=== PATIENT | male | born 1955 | race Caucasian/White ===

== ENCOUNTER 2017-09-16 13:58 | Inpatient (IN) | payer MEDICARE, MEDICAID, SELFPAY ==
[2017-09-16] VITALS (11 sets, daily range): BP systolic 151–176; BP diastolic 80–128; PULSE 54–121; RESP 17–34; TEMP 35.5–36.8; O2SAT 95–99; BMI 18.5; BMI 17.1
--- NOTE | 2017-09-16 14:22 | EKG12_ITS ---
Test Reason : SOB Blood Pressure : / mmHG Vent. Rate : 098 BPM Atrial Rate : 098 BPM P-R Int : 132 ms QRS Dur : 070 ms QT Int : 334 ms P-R-T Axes : 080 081 073 degrees QTc Int : 426 ms Normal sinus rhythm Normal ECG Confirmed by TIANA MELGOZA, TANA ([id number]), editor greeting card NEVA BOYD ([id number]) on 09/19/2017 11:21:48 AM Referred By: Gianni Riley Confirmed By:TANA MONTIEL MD
[2017-09-16] MEDS: Ipratropium/Albuterol Sulfate 3 ML AMPUL.NEB INHALATION ×2 (14:34→22:24)
[2017-09-16] MEDS: MethylPREDNISolone 125 MG/2 ML Vial IV (14:56)
[2017-09-16] MEDS: 0.9% Normal Saline 1,000 ML 999 ML IV (14:56)
--- NOTE | 2017-09-16 15:10 | RAD_ITS ---
STUDY: X-RAY CHEST REASON FOR EXAM: Male, 62 years old. Cough. TECHNIQUE: PA and lateral views of the chest. COMPARISON: Comparison is made with prior study dated May 20, 2009. FINDINGS: EKG electrodes are seen. Hyperinflation. Decreased bronchovascular markings bilaterally suggestive of bilateral emphysematous changes. Stable linear scarring at the lung bases. Blunting of both cause phrenic angles. Normal size heart. Normal mediastinum and christie. Normal visualized pulmonary arteries. Normal visualized aortic arch and descending thoracic aorta. There is demineralization of the osseous structures. Multiple healed right rib fractures. There is no demonstrated abnormality of the visualized soft tissue structures of the upper abdomen. RAD/Chest PA and Lateral IMPRESSION: Hyperinflation and emphysematous changes with mild bibasilar scarring. Healed right rib fractures. Electronically Signed: Westley Malagon MD at 15:37 EST Tel [phone], Service support ,
[2017-09-16 15:50] LABS: Absolute Lymphocyte Count 1.51 X10^3/ul (0.83-4.51); Absolute Neutrophil Count 5.7 X10^3/uL (2.0-7.7); Basophil# 0.05 X10^3/uL; Basophil% 0.5 % (0-1); Eosinophil# 0.27 X10^3/uL; Hematocrit 42.1 % (40-54); Hemoglobin 14.1 g/dl (13.0-16.5); Lymphocyte # 1.51 X10^3/ul (4.0); Lymphocyte % 16.6 % (19-41); Mean Corp Hgb Conc 33.5 g/gl (32-36); Mean Corpuscular Hgb 30.9 pg (27.0-32.0); Mean Corpuscular Volume 92.1 fL (80-94); Mean Platelet Vol. 9.1 fl (6.2-12.0); Monocyte# 1.53 X10^3/uL; Monocyte% 16.8 % (0-10); Neutrophil # 5.72 X10^3/uL (2.7-7.7); Neutrophil % 62.8 % (47-70); Platelet Count 308 K/mm3 (150-450); RBC Distribution Width SD 50.5 fl (35.1-43.9); Red Blood Count 4.57 M/mm3 (4.6-6.2); White Blood Count 9.1 K/mm3 (4.4-11.0)
[2017-09-16 15:52] LABS: Differential Indicated SCAN CRITERIA MET; POSITIVE COUNT NO; POSITIVE DIFFERENTIAL YES; POSITIVE MORPHOLOGY NO
[2017-09-16 16:13] LABS: Anion Gap 8 (5-15); BUN 7 mg/dL (7-18); BUN/Creat Ratio 12.4 RATIO (10-20); Calcium,Total 8.8 mg/dL (8.5-10.1); Chloride 101 mmol/L (98-107); Creatinine, Serum 0.56 mg/dL (0.70-1.30); EST Glomerular Filtration Rate 157 mL/min (>60); Est Glom Filt Rate - Afr Amer 190 mL/min (>60); Estimated Creatinine Clearance 106.35 ml/min; Glucose 86 mg/dL (70-110); Potassium 3.9 mmol/L (3.5-5.1); Sodium Level 135 mmol/L (136-145)
[2017-09-16] MEDS: Acetaminophen 325 MG Tablet 650 MG PO (16:28)
[2017-09-16 16:33] LABS: Anisocytosis RARE; Macrocytosis RARE; Platelet Estimate ADEQUATE (ADEQ)
[2017-09-16] MEDS: Albuterol 2.5 MG/3 ML VIAL.NEB. INHALATION (16:36)
--- NOTE | 2017-09-16 16:45 | ED.VISSUMM ---
- ER Visit Summary Date of Service: 09/16/17 Chief Complaint: Cough History of Present Illness: The patient is a [address] Diaz. He has cough and shortness of breath began 2 days ago. He has a history of COPD. He is not on home O2. He does not see a dough puncher. Reports he has severe shortness of breath is much worse when he walks or lays flat. Patient reports his cough is nonproductive. He has had no fever, chills, or chest pain. Physical Examination: Vitals: Stable. Afebrile. General: Well-nourished and well-developed. Head: Normocephalic atraumatic. Neck: Supple, no lymphadenopathy. No JVD. Nontender. Cardiovascular: Regular rate and rhythm. No murmurs. Respiratory: Mild respiratory distress with minimal wheezing bilaterally, but greatly decreased air movement.. Abdominal: Soft, nontender, nondistended, normal bowel sounds. No guarding, rebound, or peritoneal signs. Back: Nontender. Extremities: Nontender, no edema. Skin: Normal color, no rash. Neurologic: Alert and oriented ?3. Cranial nerves II through XII are intact. Normal strength and sensation. Psych: Normal affect. Test Results: Chest x-ray shows chronic changes. EKG is sinus at 98 with no acute changes. CBC is marked for lymphocytes 17 monocytes 17. Chem-7 is more for sodium 135 and creatinine 0.56. Emergency Department Course and Treatment: Patient was given albuterol Atrovent aerosols. He was given Solu-Medrol IV and Tylenol p.o. Repeat exam he is still very dyspneic and tachypneic. Is given a second albuterol aerosol. Treatment Plan: Patient was discussed with Dr. Carter. He will be admitted to the hospital for further evaluation and treatment. Disposition: Admitted in improved condition. Impression: 1. COPD exacerbation. This note was generated with [employer] dictation software. It may contain incorrect words, spelling, and punctuation that were not noted in review of the chart prior to signing ED Disposition - Plan for ED Patient: Chief Complaint: Shortness of Breath Referrals: Arpit Diaz MD [Primary Care Provider] -
--- NOTE | 2017-09-16 17:40 | PCM.HP.STD ---
Problem List (1) COPD (chronic obstructive pulmonary disease) with emphysema Status: Chronic (2) Acute respiratory failure with hypoxia Status: Acute (3) Ischemic stroke Status: Chronic Comment: Recent about 2-3 weeks ago (4) Hypertension Status: Chronic (5) Dyslipidemia Status: Chronic (6) Throat cancer Status: Chronic (7) Peripheral arterial disease Status: Chronic (8) Right inguinal hernia Status: Chronic (9) COPD (chronic obstructive pulmonary disease) with acute bronchitis Status: Acute History of Present Illness Date of Admission: 09/16/17 Chief Complaint: Shortness of breath since last 3 days The patient is a 62 year old M with history of COPD/emphysema, not on home oxygen and other comorbidities as mentioned above came to ER with progressive worsening of shortness of breath since Saturday night. He also has chest congestion but denies fever or chills. He has shortness of breath on exertion but denies chest pain/tightness. Besides that he has recently had a stroke and is seeing Dr. Riley. He was supposed to have MRI brain and 2D echo today. As per the he has residual receptive aphasia, understanding the speech. He also has chronic malnutrition but has gained about 10 pounds in last 6 months. Clinical Impression(s) from Imaging Studies Chest X-Ray 09/16/17 15:10 IMPRESSION: Hyperinflation and emphysematous changes with mild bibasilar scarring. Healed right rib fractures. Electronically Signed: Westley Malagon MD at 15:37 EST Tel [phone], Service support , Laboratory Results 09/16/17 15:40: WBC 9.1, RBC 4.57 L, Hgb 14.1, Hct 42.1, MCV 92.1, MCH 30.9, MCHC 33.5, RDW 15.0 H, RDW Differential 50.5 H, Plt Count 308, MPV 9.1, Immature Gran % (Auto) 0.300, Neut % (Auto) 62.8, Lymph % (Auto) 16.6 L, Berks % (Auto) 16.8 H, Eos % (Auto) 3.0, Baso % (Auto) 0.5, Absolute Neuts (auto) 5.7, Absolute Lymphs (auto) 1.51, Total Counted Not Reportable, Differential Comment SEE COMMENT, Diff Path Review May foll, Platelet Estimate ADEQUATE, Anisocytosis RARE, Macrocytosis RARE 09/16/17 15:40: Sodium 135 L, Potassium 3.9, Chloride 101, Carbon Dioxide 26.0, Anion Gap 8, BUN 7, Creatinine 0.56 L, Estim Creat Clear Calc 106.35, Est GFR (MDRD) Af Amer 190, Est GFR (MDRD) Non-Af 157, BUN/Creatinine Ratio 12.4, Glucose 86, Calcium 8.8 [] Past Medical History Past Medical History (Chronic Problems): Chronic Problems COPD (chronic obstructive pulmonary disease) with emphysema (Chronic) Ischemic stroke (Chronic) Recent about 2-3 weeks ago Hypertension (Chronic) Dyslipidemia (Chronic) Throat cancer (Chronic) Peripheral arterial disease (Chronic) Right inguinal hernia (Chronic) Allergies No Known Allergies Allergy (Verified 09/26/15 18:58) Home Medications: Ambulatory Orders Medication Instructions Recorded Albuterol IH (ProAir) [Proair Hfa 2 puff INHALATION Q4H PRN PRN 09/26/15 (SP)Vent Pts] Amlodipine [Norvasc] 10 mg PO DAILY 09/26/15 Atorvastatin Calcium [Lipitor] 40 mg PO QHS 09/26/15 Fluticasone Propionate [Flonase 1 spray NS DAILY 09/26/15 Allergy Relief] Lorazepam [Ativan] 0.5 mg PO TID PRN PRN 09/26/15 Aspirin [Aspirin, Baby] 81 mg PO DAILY@0800 09/16/17 Budesonide/Formoterol 160/4.5 2 puff INHALATION BID 09/16/17 [Symbicort 160/4.5 Mcg Inhaler (SP)] Smoking Status: Current every day smoker - About a pack a day since teenage. Alcohol: Heavy - About 3 beers daily since teenager - *Family History Paternal History Items: No pertinent history Review of Systems Constitutional: Reports: Malaise, Weakness. Denies: Chills, Fever, Weight Change HEENT: Denies: Head Aches, Sinus Congestion, Sinus Drainage Cardiovascular: Denies: Chest Pain, Palpitations Respiratory: Reports: Cough, Shortness of Breath, Shortness of breath upon exertion. Denies: Shortness of breath at rest, Sputum production Gastrointestinal: Denies: Abdominal Pain, Nausea, Vomiting Genitourinary: Denies: Dysuria Musculoskeletal: Denies: Joint Pain, Joint Tenderness Skin: Denies: Rash, Wounds Neurological: Denies: Numbness, Tingling, Focal weakness Psychiatric: Denies: Anxiety, Depression, Homicidal Ideations, Suicidal Ideations Hematologic/ Lymphatic: Denies: Easy Bruising, Easy Bleeding VTE Information - Inpt Only VTE Present on Admission: No VTE Mechan Device Prophylaxis: SCD's VTE Pharm Prophylaxis ordered?: Yes Patient Problems: Active and Suspected Problems Acute respiratory failure with hypoxia (Acute) COPD (chronic obstructive pulmonary disease) with acute bronchitis (Acute) - Physical Exam General: Alert, Oriented x3, Cooperative HEENT: Atraumatic, PERRLA, EOMI, Normocephalic Oral: Dry Mucosa Neck: Supple, No JVD, Negative Carotid Bruits Lungs: Diminished, Rhonchi, Short of Breath, Tachypneic, Using Accessory Muscles, Wheezes Cardiovascular: Regular rate, Regular Rhythm, Normal S1, Normal S2, No murmurs, - - Surgical scar melissa over right leg anteromedially and anterolaterally probably vascular surgery. Right SFA stent. A small formed to hard, single swelling present over anterior part of right upper thigh. Abdomen: Bowel Sounds Present, Soft, Non Tender, Non-Distended, Hernia - Right inguinal hernia, direct., - Extremities: No edema, Capillary Refill Less than 3 Seconds Skin: No rashes, No breakdown Musculoskeletal: No Tenderness to Palpation of Joints or Extremities Neurological: Cranial nerves II-XII grossly intact Psych/Mental Status: Normal Affect, Appropriate Vital Signs Temp Pulse Resp BP Pulse Ox 97 F L 97 26 H 155/88 H 97 09/16/17 16:55 09/16/17 16:55 09/16/17 16:55 09/16/17 16:55 09/16/17 16:55 Oxygen Flow Rate 2 Oxygen Delivery Method Nasal Cannula Weight: 118 lb 2.684 oz Body Mass Index (BMI) 18.5 Laboratory Tests Past 24 Hrs 09/16/17 09/16/17 15:40 15:40 WBC 9.1 RBC 4.57 L Hgb 14.1 Hct 42.1 MCV 92.1 MCH 30.9 MCHC 33.5 RDW 15.0 H RDW Differential 50.5 H Plt Count 308 MPV 9.1 Immature Gran % (Auto) 0.300 Neut % (Auto) 62.8 Lymph % (Auto) 16.6 L Berks % (Auto) 16.8 H Eos % (Auto) 3.0 Baso % (Auto) 0.5 Absolute Neuts (auto) 5.7 Absolute Lymphs (auto) 1.51 Total Counted Not Reportable Differential Comment SEE COMMENT Diff Path Review May foll Platelet Estimate ADEQUATE Anisocytosis RARE Macrocytosis RARE Sodium 135 L Potassium 3.9 Chloride 101 Carbon Dioxide 26.0 Anion Gap 8 BUN 7 Creatinine 0.56 L Estim Creat Clear Calc 106.35 Est GFR (MDRD) Af Amer 190 Est GFR (MDRD) Non-Af 157 BUN/Creatinine Ratio 12.4 Glucose 86 Calcium 8.8 Assessment/Plan Active and Suspected Problems Acute respiratory failure with hypoxia (Acute) COPD (chronic obstructive pulmonary disease) with acute bronchitis (Acute) The patient is a 62 year old M with history of COPD/emphysema, not on home oxygen and other comorbidities as mentioned above came to ER with progressive worsening of shortness of breath since Saturday night. He also has chest congestion but denies fever or chills. He has shortness of breath on exertion but denies chest pain/tightness. Besides that he has recently had a stroke and is seeing Dr. Riley. He was supposed to have MRI brain and 2D echo today. As per the he has residual receptive aphasia, understanding the speech. He also has chronic malnutrition but has gained about 10 pounds in last 6 months. 1. COPD exacerbation with acute hypoxic respiratory failure. Currently patient is on 2 L of oxygen, pulse ox 98%. Patient is being admitted on the monitored bed. ABG ordered. On COPD protocol with bronchodilator, Solu-Medrol, IV Zithromax, chest physiotherapy, influenza test, sputum culture. 2. Recent stroke with residual receptive/fornix aphasia with history of recurrent stroke in the past: As mentioned above, MRI brain and 2D echo ordered. Patient follows Dr. Riley. Continue aspirin and statin. 3. Significant peripheral arterial disease status post right SFA stent and right leg surgery: Patient follows [facility] vascular surgery. Patient also has firm nodule, spherical in shape in vandana-superior right thigh. Patient has follow-up scheduled for [facility] vascular surgery. 4. Chronic alcohol use and nicotine dependence: Counseling for smoking cessation and alcohol cessation done. On nicotine patch. CIWA protocol. She drinks 3 bottles of beer every day since teenage. 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 Other comorbidities include hypertension, right inguinal direct hernia, dyslipidemia, chronic moderate protein calorie malnutrition: On ensure. Grinder Hardboard consult. Home medication reconciliation done. DVT prophylaxis: On Lovenox 40 mg subcu daily and bilateral SCDs. anscription mistakes may persist. Clinical Impression(s) from Imaging Studies Chest X-Ray 09/16/17 15:10 IMPRESSION: Hyperinflation and emphysematous changes with mild bibasilar scarring. Healed right rib fractures. Electronically Signed: Westley Malagon MD at 15:37 EST Tel [phone], Service support , Laboratory Results 09/16/17 15:40: WBC 9.1, RBC 4.57 L, Hgb 14.1, Hct 42.1, MCV 92.1, MCH 30.9, MCHC 33.5, RDW 15.0 H, RDW Differential 50.5 H, Plt Count 308, MPV 9.1, Immature Gran % (Auto) 0.300, Neut % (Auto) 62.8, Lymph % (Auto) 16.6 L, Berks % (Auto) 16.8 H, Eos % (Auto) 3.0, Baso % (Auto) 0.5, Absolute Neuts (auto) 5.7, Absolute Lymphs (auto) 1.51, Total Counted Not Reportable, Differential Comment SEE COMMENT, Diff Path Review May foll, Platelet Estimate ADEQUATE, Anisocytosis RARE, Macrocytosis RARE 09/16/17 15:40: Sodium 135 L, Potassium 3.9, Chloride 101, Carbon Dioxide 26.0, Anion Gap 8, BUN 7, Creatinine 0.56 L, Estim Creat Clear Calc 106.35, Est GFR (MDRD) Af Amer 190, Est GFR (MDRD) Non-Af 157, BUN/Creatinine Ratio 12.4, Glucose 86, Calcium 8.8 This note was generated with Powered Nowation software. Every effort was made to ensure accuracy, however computerized tr Code Visit Inpatient E&M: 95901 Init Hosp L3
--- NOTE | 2017-09-16 17:53 | HP.PCM_ITS ---
Problem List (1) COPD (chronic obstructive pulmonary disease) with emphysema Status: Chronic (2) Acute respiratory failure with hypoxia Status: Acute (3) Ischemic stroke Status: Chronic Comment: Recent about 2-3 weeks ago (4) Hypertension Status: Chronic (5) Dyslipidemia Status: Chronic (6) Throat cancer Status: Chronic (7) Peripheral arterial disease Status: Chronic (8) Right inguinal hernia Status: Chronic (9) COPD (chronic obstructive pulmonary disease) with acute bronchitis Status: Acute History of Present Illness Date of Admission: 09/16/17 Chief Complaint: Shortness of breath since last 3 days The patient is a 62 year old M with history of COPD/emphysema, not on home oxygen and other comorbidities as mentioned above came to ER with progressive worsening of shortness of breath since Saturday night. He also has chest congestion but denies fever or chills. He has shortness of breath on exertion but denies chest pain/tightness. Besides that he has recently had a stroke and is seeing Dr. Riley. He was supposed to have MRI brain and 2D echo today. As per the he has residual receptive aphasia, understanding the speech. He also has chronic malnutrition but has gained about 10 pounds in last 6 months. Clinical Impression(s) from Imaging Studies Chest X-Ray 09/16/17 15:10 IMPRESSION: Hyperinflation and emphysematous changes with mild bibasilar scarring. Healed right rib fractures. Electronically Signed: Westley Malagon MD at 15:37 EST Tel [phone], Service support , Laboratory Results 09/16/17 15:40: WBC 9.1, RBC 4.57 L, Hgb 14.1, Hct 42.1, MCV 92.1, MCH 30.9, MCHC 33.5, RDW 15.0 H, RDW Differential 50.5 H, Plt Count 308, MPV 9.1, Immature Gran % (Auto) 0.300, Neut % (Auto) 62.8, Lymph % (Auto) 16.6 L, Bennett % (Auto) 16.8 H, Eos % (Auto) 3.0, Baso % (Auto) 0.5, Absolute Neuts (auto) 5.7, Absolute Lymphs (auto) 1.51, Total Counted Not Reportable, Differential Comment SEE COMMENT, Diff Path Review May foll, Platelet Estimate ADEQUATE, Anisocytosis RARE, Macrocytosis RARE 09/16/17 15:40: Sodium 135 L, Potassium 3.9, Chloride 101, Carbon Dioxide 26.0, Anion Gap 8, BUN 7, Creatinine 0.56 L, Estim Creat Clear Calc 106.35, Est GFR ( MDRD) Af Amer 190, Est GFR (MDRD) Non-Af 157, BUN/Creatinine Ratio 12.4, Glucose 86, Calcium 8.8 [] Past Medical History Past Medical History (Chronic Problems): Chronic Problems COPD (chronic obstructive pulmonary disease) with emphysema (Chronic) Ischemic stroke (Chronic) Recent about 2-3 weeks ago Hypertension (Chronic) Dyslipidemia (Chronic) Throat cancer (Chronic) Peripheral arterial disease (Chronic) Right inguinal hernia (Chronic) Allergies No Known Allergies Allergy (Verified 09/26/15 18:58) Home Medications: Ambulatory Orders Medication Instructions Recorded Albuterol IH (ProAir) [Proair Hfa 2 puff INHALATION Q4H PRN PRN 09/26/15 (SP)Vent Pts] Amlodipine [Norvasc] 10 mg PO DAILY 09/26/15 Atorvastatin Calcium [Lipitor] 40 mg PO QHS 09/26/15 Fluticasone Propionate [Flonase 1 spray NS DAILY 09/26/15 Allergy Relief] Lorazepam [Ativan] 0.5 mg PO TID PRN PRN 09/26/15 Aspirin [Aspirin, Baby] 81 mg PO DAILY@0800 09/16/17 Budesonide/Formoterol 160/4.5 2 puff INHALATION BID 09/16/17 [Symbicort 160/4.5 Mcg Inhaler (SP)] Smoking Status: Current every day smoker - About a pack a day since teenage. Alcohol: Heavy - About 3 beers daily since teenager - *Family History Paternal History Items: No pertinent history Review of Systems Constitutional: Reports: Malaise, Weakness. Denies: Chills, Fever, Weight Change HEENT: Denies: Head Aches, Sinus Congestion, Sinus Drainage Cardiovascular: Denies: Chest Pain, Palpitations Respiratory: Reports: Cough, Shortness of Breath, Shortness of breath upon exertion. Denies: Shortness of breath at rest, Sputum production Gastrointestinal: Denies: Abdominal Pain, Nausea, Vomiting Genitourinary: Denies: Dysuria Musculoskeletal: Denies: Joint Pain, Joint Tenderness Skin: Denies: Rash, Wounds Neurological: Denies: Numbness, Tingling, Focal weakness Psychiatric: Denies: Anxiety, Depression, Homicidal Ideations, Suicidal Ideations Hematologic/ Lymphatic: Denies: Easy Bruising, Easy Bleeding VTE Information - Inpt Only VTE Present on Admission: No VTE Mechan Device Prophylaxis: SCD's VTE Pharm Prophylaxis ordered?: Yes Patient Problems: Active and Suspected Problems Acute respiratory failure with hypoxia (Acute) COPD (chronic obstructive pulmonary disease) with acute bronchitis (Acute) - Physical Exam General: Alert, Oriented x3, Cooperative HEENT: Atraumatic, PERRLA, EOMI, Normocephalic Oral: Dry Mucosa Neck: Supple, No JVD, Negative Carotid Bruits Lungs: Diminished, Rhonchi, Short of Breath, Tachypneic, Using Accessory Muscles , Wheezes Cardiovascular: Regular rate, Regular Rhythm, Normal S1, Normal S2, No murmurs, - - Surgical scar melissa over right leg anteromedially and anterolaterally probably vascular surgery. Right SFA stent. A small formed to hard, single swelling present over anterior part of right upper thigh. Abdomen: Bowel Sounds Present, Soft, Non Tender, Non-Distended, Hernia - Right inguinal hernia, direct., - Extremities: No edema, Capillary Refill Less than 3 Seconds Skin: No rashes, No breakdown Musculoskeletal: No Tenderness to Palpation of Joints or Extremities Neurological: Cranial nerves II-XII grossly intact Psych/Mental Status: Normal Affect, Appropriate Vital Signs Temp Pulse Resp BP Pulse Ox 97 F L 97 26 H 155/88 H 97 09/16/17 16:55 09/16/17 16:55 09/16/17 16:55 09/16/17 16:55 09/16/17 16:55 Oxygen Flow Rate 2 Oxygen Delivery Method Nasal Cannula Weight: 118 lb 2.684 oz Body Mass Index (BMI) 18.5 Laboratory Tests Past 24 Hrs 09/16/17 09/16/17 15:40 15:40 WBC 9.1 RBC 4.57 L Hgb 14.1 Hct 42.1 MCV 92.1 MCH 30.9 MCHC 33.5 RDW 15.0 H RDW Differential 50.5 H Plt Count 308 MPV 9.1 Immature Gran % (Auto) 0.300 Neut % (Auto) 62.8 Lymph % (Auto) 16.6 L Bennett % (Auto) 16.8 H Eos % (Auto) 3.0 Baso % (Auto) 0.5 Absolute Neuts (auto) 5.7 Absolute Lymphs (auto) 1.51 Total Counted Not Reportable Differential Comment SEE COMMENT Diff Path Review May foll Platelet Estimate ADEQUATE Anisocytosis RARE Macrocytosis RARE Sodium 135 L Potassium 3.9 Chloride 101 Carbon Dioxide 26.0 Anion Gap 8 BUN 7 Creatinine 0.56 L Estim Creat Clear Calc 106.35 Est GFR (MDRD) Af Amer 190 Est GFR (MDRD) Non-Af 157 BUN/Creatinine Ratio 12.4 Glucose 86 Calcium 8.8 Assessment/Plan Active and Suspected Problems Acute respiratory failure with hypoxia (Acute) COPD (chronic obstructive pulmonary disease) with acute bronchitis (Acute) The patient is a 62 year old M with history of COPD/emphysema, not on home oxygen and other comorbidities as mentioned above came to ER with progressive worsening of shortness of breath since Saturday night. He also has chest congestion but denies fever or chills. He has shortness of breath on exertion but denies chest pain/tightness. Besides that he has recently had a stroke and is seeing Dr. Riley. He was supposed to have MRI brain and 2D echo today. As per the he has residual receptive aphasia, understanding the speech. He also has chronic malnutrition but has gained about 10 pounds in last 6 months. 1. COPD exacerbation with acute hypoxic respiratory failure. Currently patient is on 2 L of oxygen, pulse ox 98%. Patient is being admitted on the monitored bed. ABG ordered. On COPD protocol with bronchodilator, Solu-Medrol , IV Zithromax, chest physiotherapy, influenza test, sputum culture. 2. Recent stroke with residual receptive/fornix aphasia with history of recurrent stroke in the past: As mentioned above, MRI brain and 2D echo ordered. Patient follows Dr. Riley. Continue aspirin and statin. 3. Significant peripheral arterial disease status post right SFA stent and right leg surgery: Patient follows [facility] vascular surgery. Patient also has firm nodule, spherical in shape in vandana-superior right thigh. Patient has follow-up scheduled for [facility] vascular surgery. 4. Chronic alcohol use and nicotine dependence: Counseling for smoking cessation and alcohol cessation done. On nicotine patch. CIWA protocol. She drinks 3 bottles of beer every day since teenage. 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 Other comorbidities include hypertension, right inguinal direct hernia, dyslipidemia, chronic moderate protein calorie malnutrition: On ensure. Taxonomist consult. Home medication reconciliation done. DVT prophylaxis: On Lovenox 40 mg subcu daily and bilateral SCDs. anscription mistakes may persist. Clinical Impression(s) from Imaging Studies Chest X-Ray 09/16/17 15:10 IMPRESSION: Hyperinflation and emphysematous changes with mild bibasilar scarring. Healed right rib fractures. Electronically Signed: Westley Malagon MD at 15:37 EST Tel [phone], Service support , Laboratory Results 09/16/17 15:40: WBC 9.1, RBC 4.57 L, Hgb 14.1, Hct 42.1, MCV 92.1, MCH 30.9, MCHC 33.5, RDW 15.0 H, RDW Differential 50.5 H, Plt Count 308, MPV 9.1, Immature Gran % (Auto) 0.300, Neut % (Auto) 62.8, Lymph % (Auto) 16.6 L, Bennett % (Auto) 16.8 H, Eos % (Auto) 3.0, Baso % (Auto) 0.5, Absolute Neuts (auto) 5.7, Absolute Lymphs (auto) 1.51, Total Counted Not Reportable, Differential Comment SEE COMMENT, Diff Path Review May foll, Platelet Estimate ADEQUATE, Anisocytosis RARE, Macrocytosis RARE 09/16/17 15:40: Sodium 135 L, Potassium 3.9, Chloride 101, Carbon Dioxide 26.0, Anion Gap 8, BUN 7, Creatinine 0.56 L, Estim Creat Clear Calc 106.35, Est GFR ( MDRD) Af Amer 190, Est GFR (MDRD) Non-Af 157, BUN/Creatinine Ratio 12.4, Glucose 86, Calcium 8.8 This note was generated with Tissuetechation software. Every effort was made to ensure accuracy, however computerized tr Code Visit Inpatient E&M: 78342 Init Hosp L3
[2017-09-16 19:16] LABS: Allen Test POS; Base Excess -2 mmol/L (-2 to +2); Bicarbonate 22.6 mmol/L (22-26); Blood Gas Specimen Type ART; O2 Delivery Device Nasal Can; PO2 99 mmHG (75-100); SITE L Radial; SO2 98 % (95-99); Time Given 1905; Total Carbon Dioxide 24 mmol/L; pCO2 36.6 mmHg (35-45)
[2017-09-16 19:59] LABS: GGTP 20 U/L (15-85)
[2017-09-16] MEDS: 0.9% Normal Saline 1,000 ML 75 ML IV (20:04)
[2017-09-16 20:11] LABS: Alcohol, Blood (Medical)-Serum < 3.0 mg/dL
[2017-09-16 21:01] LABS: BNP,B-Type NATRIURETIC PEPTIDE 10.8 pg/mL (0-100)
[2017-09-16] MEDS: Atorvastatin Calcium 40 MG Tablet PO (22:15)
[2017-09-17] VITALS (7 sets, daily range): BP systolic 123–159; BP diastolic 68–83; PULSE 77–106; RESP 16–20; TEMP 36.4–36.8; O2SAT 94–98
--- NOTE | 2017-09-17 05:55 | MRI_ITS ---
STUDY: MRI BRAIN WITHOUT CONTRAST REASON FOR EXAM: Male, 62 years old. The patient presents with a history of being off-balance with leg weakness and numbness in the legs. The patient has a history of hypertension, COPD and throat cancer. Evaluate for recent CVA. TECHNIQUE: Standardized multiplanar fat and water weighted pulse sequences were obtained. COMPARISON: None. FINDINGS: There is mild cerebral atrophy with widening of the extra-axial spaces and ventricular dilatation. There is extensive confluent hyperintensity of the deep white matter tracts extending from the cerebral hemispheres to the cortical mcnally-white matter junctions. If the patient is experiencing rapid mental deterioration, the findings would be compatible with subcortical arteriosclerotic encephalopathy ( Binswanger's disease). There are remote periventricular small white matter lacunar infarctions. There is no evidence for recent intracranial ischemia or other cause of cytotoxic edema on diffusion weighted imaging (DWI). Normal T2* images of the brain without demonstrated susceptibility artifact. There is no demonstrated hemosiderin stain. There are prominent perivascular spaces (PVS) involving the basal ganglia. There are multiple remote lacunar infarctions of the bilateral thalami (axial T2 series 5, image 14). There is no extra-axial fluid accumulation. Normal flow voids within the major intracranial circulation suggesting patency by spin echo criteria. Normal sella turcica, pituitary gland, infundibular stalk, optic chiasm and hypothalamus. Normal tectal plate and pineal gland. There are chronic white matter ischemic changes of the daly. The midbrain and medulla are otherwise normal. There are small remote lacunar infarctions of the daly. Normal cerebellum. Normal basal cisterns. Normal bilateral temporal bones. Normal bilateral internal auditory canals. No demonstrated orbital abnormality, within the constraints of a routine brain study. There is extensive mucosal inflammatory disease of the bilateral maxillary sinuses (axial T2 series 5, image 6). Normal calvarium and skull base. Normal visualized soft tissue structures. Normal visualized upper cervical spine. MRI/Brain without Contrast IMPRESSION: 1. No acute or evolving ischemic infarction. 2. Extensive confluent hyperintense signal of the deep white matter tracts consistent with severe chronic white matter ischemic changes. 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 3. Remote small periventricular lacunar infarctions. 4. Multiple remote lacunar infarctions of the bilateral thalami. 5. Chronic white matter ischemic changes of the daly with small remote lacunar infarctions. 6. Extensive chronic sinusitis the bilateral maxillary sinuses. Electronically Signed: Gilberto Donovan DO at 12:22 EST Tel , Service support ,
--- NOTE | 2017-09-17 05:55 | ECHOD_ITS ---
Reason For Study: CVA Procedure This was a 2D Doppler, Color Flow transthoracic echocardiogram. The exam was of fair technical quality due to diminished acoustic windows. The study was technically difficult. Exam performed portable in patient room. Left Ventricle Normal size and thickness. Left ventricular systolic function is normal. The estimated ejection fraction is 65 %. Transmitral doppler flow suggestive of impaired relaxation of left ventricle. No regional wall motion abnormalities noted. Right Ventricle Normal RV size. Normal systolic function. Atria Normal left atrium. Normal right atrium. No doppler evidence for ASD. Bubble contrast study negative for right to left interatrial shunt. Mitral Valve There is no mitral annular calcification. Mild diffuse mitral valve thickening. The mitral valve chordae are thickened and/or calcified. Trivial mitral valve insufficiency. Tricuspid Valve Normal tricuspid valve. Trivial tricuspid valve insufficiency. Right ventricular systolic pressure estimated to be 22 mmHg. Aortic Valve Trisinus/trileaflet aortic valve. Mild focal aortic valve calcification. Pulmonic Valve The pulmonic valve is not well visualized. Great Vessels Normal sized aortic root. Pericardium/Pleural No pericardial effusion. Medication Performed a rapid injection of agitated mix of 9 cc saline and 1cc air to assess for atrial septal defect. MMode/2D Measurements & Calculations LVIDd: 3.3 cm IVSd: 0.96 cm Ao root diam: 2.9 cm LVIDs: 1.9 cm LVPWd: 0.91 cm LA dimension: 3.2 cm RVDd: 2.3 cm FS: 40.3 % LAV(MOD-bp): 31.8 ml LA A4 area: 13.0 cm2 RA A4 area: 12.3 cm2 LAV(MOD-bp) Indexed: 20.4 ml/m2 LAV(MOD-sp2): 31.3 ml LAV(MOD-sp4): 31.0 ml Doppler Measurements & Calculations MV E max isi: 77.8 cm/sec Ao V2 max: 96.1 cm/sec LV V1 max: 78.3 cm/sec MV A max isi: 106.9 cm/sec Ao max P.7 mmHg LV V1 max P.5 mmHg MV E/A: 0.73 PA V2 max: 112.5 cm/sec TR max isi: 216.1 cm/sec TR max P.8 mmHg Interpretation Summary The study was technically difficult. Left ventricular systolic function is normal. The estimated ejection fraction is 65 %. Mild diffuse mitral valve thickening. The mitral valve chordae are thickened and/or calcified. Trivial mitral valve insufficiency. Trivial tricuspid valve insufficiency. Mild focal aortic valve calcification. Right ventricular systolic pressure estimated to be 22 mmHg. Transmitral doppler flow suggestive of impaired relaxation of left ventricle Ordering Physician: Ambrosio Carter Referring Physician: ABIMAEL GRANADOS Performed By: Hilda Yuan, JABIER, RVT
[2017-09-17 06:53] LABS: Absolute Lymphocyte Count 0.64 X10^3/ul (0.83-4.51); Absolute Neutrophil Count 7.6 X10^3/uL (2.0-7.7); Basophil# 0.02 X10^3/uL; Basophil% 0.2 % (0-1); Hematocrit 40.2 % (40-54); Hemoglobin 13.4 g/dl (13.0-16.5); Lymphocyte # 0.64 X10^3/ul (4.0); Lymphocyte % 7.6 % (19-41); Mean Corp Hgb Conc 33.3 g/gl (32-36); Mean Corpuscular Hgb 30.6 pg (27.0-32.0); Mean Corpuscular Volume 91.8 fL (80-94); Monocyte# 0.22 X10^3/uL; Monocyte% 2.6 % (0-10); Neutrophil # 7.56 X10^3/uL (2.7-7.7); Neutrophil % 89.2 % (47-70); Platelet Count 333 K/mm3 (150-450); RBC Distribution Width SD 50.8 fl (35.1-43.9); Red Blood Count 4.38 M/mm3 (4.6-6.2); White Blood Count 8.5 K/mm3 (4.4-11.0)
[2017-09-17 06:55] LABS: AST(SGOT) 16 U/L (15-37); Alanine Aminotransfer ALT/SGPT 18 U/L (16-61); Albumin, Serum 3.1 g/dL (3.2-5.0); Alkaline Phosphatase 76 U/L (45-117); Bilirubin, Direct 0.06 mg/dL (0.00-0.30); Globulin 4.5 g/dL (2.2-4.2); Protein, Total 7.6 g/dL (6.4-8.2)
[2017-09-17 06:56] LABS: POSITIVE COUNT NO; POSITIVE DIFFERENTIAL NO; POSITIVE MORPHOLOGY NO
[2017-09-17] MEDS: Ipratropium/Albuterol Sulfate 3 ML AMPUL.NEB INHALATION ×3 (08:08→19:40)
--- NOTE | 2017-09-17 08:43 | PCM.PN.HOSP ---
Patient Problems: Active and Suspected Problems Acute respiratory failure with hypoxia (Acute) COPD (chronic obstructive pulmonary disease) with acute bronchitis (Acute) Subjective: Patient with no acute events overnight per self and per nursing report. He notes since initial presentation breathing is improved and wheezing has lessened. Had lengthy discussion regarding recent acute stroke with ongoing workup outpatient per neurology with decision for MRI brain, MRA head and neck, echo as well as mag, phosphorus, TSH and lipid panel with therapies evaluation to which patient and significant were amenable. Cost alcohol abuse at length with initiation of [place] protocol during admission as well as maintenance of multivitamin, thiamine, folic acid with mag and phosphate pending as well. Patient denies any worsening of his mild aphasia. Patient denies fevers, chills, nausea, emesis, abdominal pain, chest pain or worsened dyspnea. Objective: Physical Examination: General: awake, alert, oriented x 3 and cooperative, seated upright in bed in no apparent distress, initially eating. Skin: normal color, turgor, no icterus, cyanosis. HEENT: AT/NC, EOMI, PERRLA, mildly dry MM. Lungs: Diminished BS diffusely, > bases, mild effort, shallow, no rales, ronchi or wheezing. Heart: Regular rate and rhythm; no gallop, rub audible. Abdomen: soft, thin habitus, NTTP, ND, normal BS, no HSM. Extremities: no cyanosis, clubbing, or edema. Neurological: patient awake, alert, oriented x 3; cognitive function intact; pupils equally reactive to light and accomodation; cranial nerves II-XII grossly normal, moving all 4 extremities, no focal deficits, strength mildly to moderately globally decreased, equiv babinski BL, FTN/HTN intact, aphasia present, very mild, sensation intact. Psychiatric: affect appears mildly irritable, no acute evidence of depressive or anxiety feelings. Vitals/I&O's: Vital Signs Temp Pulse Resp BP Pulse Ox 98.2 F 79 16 143/77 H 98 09/17/17 02:00 09/17/17 02:00 09/17/17 02:00 09/17/17 02:00 09/17/17 02:00 Oxygen Flow Rate 2 Oxygen Delivery Method Room Air Weight: 109 lb 2.061 oz Body Mass Index (BMI) 17.1 Intake and Output for Last 24 Hours 09/15/17 09/16/1709/17/18 23:59 23:59 23:59 Intake Total 1130 / 1130 Output Total 200 / 200 Balance 930 / 930 Microbiology Past 72 Hours 09/16/17 19:00 Mucosa - Nasopharyngeal Influenza Types A,B Direct FA (JAYDE) - Final Laboratory Results 09/16/17 19:13: Specimen Type ART, Sample Site L Radial, pH 7.40, Bicarbonate Actual 22.6, POC Total CO2 24, Base Excess -2, O2 Saturation 98, ABG pCO2 36.6, ABG pO2 99, Umer Test POS, O2 Delivery Device Nasal Can, Liter Flow 2.0, Blood Gas Notified Whom GERTRUDIS MELGOZA, Blood Gas Notified Time 19009/16/17 19:27: GGT 20 09/16/17 19:27: Ethyl Alcohol < 3.0 09/16/17 19:27: B-Natriuretic Peptide 10.8 09/17/17 06:12: WBC 8.5, RBC 4.38 L, Hgb 13.4, Hct 40.2, MCV 91.8, MCH 30.6, MCHC 33.3, RDW 15.0 H, RDW Differential 50.8 H, Plt Count 333, MPV 9.0, Immature Gran % (Auto) 0.400, Neut % (Auto) 89.2 H, Lymph % (Auto) 7.6 L, [place] % (Auto) 2.6, Eos % (Auto) 0.0, Baso % (Auto) 0.2, Absolute Neuts (auto) 7.6, Absolute Lymphs (auto) 0.64 L, Total Counted Not Reportable 09/17/17 06:12: Total Bilirubin 0.20, Direct Bilirubin 0.06, AST 16, ALT 18, Alkaline Phosphatase 76, Total Protein 7.6, Albumin 3.1 L, Globulin 4.5 H Current Medications Acetaminophen (Tylenol) 650 mg PO Q6H PRN PRN PRN Reason: Mild Pain (scale 0-3)/T>100.7 Al Hydroxide/Mg Hydroxide (Mylanta Ii) 30 ml PO Q6H PRN PRN PRN Reason: Gastric Burning Albuterol Sulfate (Ventolin Aerosols) 2.5 mg INHALATION Q2H PRN PRN PRN Reason: SHORTNESS OF BREATH Albuterol/Ipratropium (Duoneb) 3 ml INHALATION Q4HWA.RT [facility] Last Admin: 09/17/17 08:08 Dose: 3 ml Amlodipine Besylate (Norvasc) 10 mg PO DAILY [facility] Aspirin (Aspirin, Baby) 81 mg PO DAILY@0800 [facility] Atorvastatin Calcium (Lipitor) 40 mg PO QHS [facility] Last Admin: 09/16/17 22:15 Dose: 40 mg Bisacodyl (Dulcolax) 10 mg RECTAL DAILY PRN PRN PRN Reason: Constipation Docusate Sodium (Colace) 200 mg PO BID PRN PRN PRN Reason: Constipation Enoxaparin Sodium (Lovenox) 40 mg SC DAILY@0600 [facility] Last Admin: 09/17/17 05:36 Dose: Not Given Fluticasone Propionate (Flonase Nasal [place]) 1 spray NASAL DAILY [facility] Folic Acid (Folic Acid) 1 mg PO DAILY@0800 [facility] Stop: 09/19/17 08:01 Azithromycin 500 mg/ Dextrose 255 mls @ 250 mls/hr IV Q24 [facility] Stop: 09/18/17 11:02 Last Admin: 09/16/17 20:04 Dose: 250 mls/hr Lorazepam (Ativan) 0.5 mg PO TID PRN PRN PRN Reason: ANXIETY Lorazepam (Ativan) 2 mg PO Q2H PRN PRN; Protocol PRN Reason: CIWA score > 8 but <15 Lorazepam (Ativan) 2 mg PO UD PRN; Protocol PRN Reason: CIWA score >/=15. Lorazepam (Ativan) 2 mg IV Q2H PRN PRN; Protocol PRN Reason: CIWA score > 8 but <15 Lorazepam (Ativan) 2 mg IV UD PRN; Protocol PRN Reason: CIWA score >/=15. Methylprednisolone (Solu-Medrol) 40 mg IV Q8 [facility] Last Admin: 09/17/17 05:34 Dose: 40 mg Morphine Sulfate (Morphine) 1 - 2 mg IV Q4H PRN PRN PRN Reason: SEVERE PAIN (6-10/10) Multivitamins/Minerals ([facility]ivitamin With Minerals) [facility] Nicotine (Nicoderm Cq (Pbkc)) 21 mg TRANSDERM. DAILY [facility] Nutritional Formula (Lactose Free) (Ensure Enlive) 120 ml PO TID [facility] Last Admin: 09/17/17 05:34 Dose: 120 ml Ondansetron HCl (Zofran) 4 mg IV Q8H PRN PRN PRN Reason: Nausea Oxycodone HCl (Oxyir) 5 mg PO Q4H PRN PRN PRN Reason: Moderate Pain (pain scale 4-5) Sodium Chloride () 5 - 30 ml IV UD PRN PRN Reason: SALINE FLUSH Thiamine HCl (Vitamin B1) 100 mg PO BIDCM [facility] Stop: 09/19/17 17:01 Zolpidem Tartrate (Ambien (Generic)) 5 mg PO QHS PRN PRN PRN Reason: INSOMNIA Assessment/Plan Active and Suspected Problems Acute respiratory failure with hypoxia (Acute) COPD (chronic obstructive pulmonary disease) with acute bronchitis (Acute) The patient is a 62 y/o M w/ PMHx: CVA, COPD, HTN, HLD, Throat CA, PAD, EtOH Abuse who presents to the [facility] ED On 09/16/17 with history of ongoing, progressively worsening dyspnea, congestion x 3 days. (1) Acute Hypoxic Respiratory Failure secondary to Acute on chronic COPD exacerbation: CXR w/ chronic changes, admitted to [place], maintain on oxygen with wean as tolerated to room air, continue ATC duonebs, PRN albuterol, IV methylprednisolone with prednisone transition once appropriate, HOB, IS parameters, IV Azithromcyin with pending sputum cultures. Respiratory panel requested. (2) Recent Acute CVA: Following with Neurology outpatient, residual receptive aphasia. MRI Brain, MRA head and neck, ECHO ordered to complete evaluation, Mag, Phos, TSH, FLP pending. PT, OT, Speech consulted. (3) EtOH Abuse: Will maintain on CIWA protocol, MVI, thiamine and folic acid, will maintain on PRN IV ativan regimen to avoid EtOH associated withdrawal in addition. Mag, phos pending. (4) Tobacco Abuse: Encouraged cessation, inpatient consultation per RT, NR if desired. (5) PAD: s/p R SFA RLE w/ stenting, following w/ [facility], planned follow-up for noted anterior superior thigh spherical firm nodule. Maintain on asa, statin. (6) Hypertension: Continue home regimen including norvasc, PRN hydralazine. (7) Hyperlipidemia: Continue home statin regimen. AM FLP. (8) Throat CA: Remission noted, possible cervical node cancer s/p chemotherapy and radiation, poor historian. (9) Severe Protein-Calorie Malnutrition: Evidenced per habitus, weight loss, fat and muscle wasting, nutrition consulted. (10) DVT Prophylaxis: SCDs, lovenox. Code Visit Inpatient E&M: 84045 Subs Hosp L3
--- NOTE | 2017-09-17 08:51 | MRI_ITS ---
STUDY: MRA NECK WITHOUT CONTRAST REASON FOR EXAM: Male, 62 years old. The patient presents with a history of being off-balance with leg weakness and numbness of legs with a history of hypertension, COPD and throat cancer. TECHNIQUE: Source images were obtained, MIPs were performed. The study was performed unenhanced. COMPARISON: None. FINDINGS: There is significant patient motion artifact which has produced spatial mis-registration and anatomic blurring, however there is significant information provided by this examination. RIGHT CAROTID ARTERIES: There is atherosclerotic tortuous elongation of the right common carotid artery. Normal right common carotid bulb. There is a 73% stenosis of the right internal carotid artery, as measured by cross-sectional diameter assessment, occurring 11 mm distal to its origin. There is atherosclerotic tortuous elongation of the cervical portion of the right internal carotid artery. There is moderate atherosclerotic plaque formation of the origin of the right external carotid artery with an estimated stenosis of 50-69% stenosis. LEFT CAROTID ARTERIES: There is atherosclerotic tortuous elongation of the left common carotid artery. Normal left common carotid bulb. There is a high-grade stenosis of the origin of the left internal carotid artery of greater than 90%. There is a small threadlike lumen which cannot be accurately measured. There is atherosclerotic tortuous elongation of the cervical portion of the left internal carotid artery. Normal origin of the left external carotid artery (ECA). VERTEBRAL ARTERIES: There is antegrade flow within the bilateral vertebral arteries with a small left vertebral artery, and a dominant right vertebral artery. MRI/MRA Neck without Contrast IMPRESSION: 1. Significant patient motion artifact which has produced spatial mis-registration and anatomic blurring, however there is significant information provided by this examination. 2. Atherosclerotic tortuosity and elongation of the bilateral common carotid arteries. 3. 73% stenosis of the right internal carotid artery, as measured by cross-sectional diameter assessment. 4. Greater than 90% stenosis of the origin of the left internal carotid artery. Electronically Signed: Gilberto Donovan DO at 12:33 EST Tel , Service support ,
--- NOTE | 2017-09-17 08:51 | MRI_ITS ---
STUDY: MRA OF THE HEAD WITHOUT CONTRAST REASON FOR EXAM: Male, 62 years old. Weakness and numbness of the legs with a history of hypertension, COPD and throat cancer. TECHNIQUE: 3-D [id number] (TOF) imaging was performed with MIPs. The study was performed unenhanced. COMPARISON: None. FINDINGS: Normal bilateral petrous carotid arteries. There is ectatic elongation and tortuosity of the bilateral cavernous carotid arteries, without a demonstrated hemodynamically significant stenosis. Normal right A1 segments of the anterior cerebral artery. Normal left A1 segments of the anterior cerebral artery. Normal intact anterior communicating artery (ACOM). Normal bilateral A2 segments of the anterior cerebral arteries. Normal right M1 and M2 segments of the middle cerebral arteries, with a normal M1 bifurcation. Normal left M1 and M2 segments of the middle cerebral arteries, with a normal M1 bifurcation. Normal right posterior communicating artery (PCOM). There is non-visualization of the left posterior communicating artery (PCOM). There is a small atretic right vertebral artery with a dominant left vertebral artery. Normal basilar artery with a normal basilar bifurcation. The visualized bilateral superior cerebellar (SCA) arteries are normal. Normal bilateral P1, P2 and visualized P3 segments of the posterior cerebral arteries. There is no demonstrated aneurysm of the [place]. There is no major vessel occlusion or hemodynamically significant stenosis. MRI/MRA Head ONLY without Contrast IMPRESSION: 1. Ectatic elongation and tortuosity of the bilateral cavernous carotid arteries without a hemodynamically significant stenosis. 2. 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 3. Otherwise, normal examination. Electronically Signed: Gilberto Donovan DO at 12:13 EST Tel , Service support ,
--- NOTE | 2017-09-17 08:54 | PN_ITS ---
Patient Problems: Active and Suspected Problems Acute respiratory failure with hypoxia (Acute) COPD (chronic obstructive pulmonary disease) with acute bronchitis (Acute) Subjective: Patient with no acute events overnight per self and per nursing report. He notes since initial presentation breathing is improved and wheezing has lessened. Had lengthy discussion regarding recent acute stroke with ongoing workup outpatient per neurology with decision for MRI brain, MRA head and neck, echo as well as mag, phosphorus, TSH and lipid panel with therapies evaluation to which patient and significant were amenable. Cost alcohol abuse at length with initiation of [place] protocol during admission as well as maintenance of multivitamin, thiamine, folic acid with mag and phosphate pending as well. Patient denies any worsening of his mild aphasia. Patient denies fevers, chills , nausea, emesis, abdominal pain, chest pain or worsened dyspnea. Objective: Physical Examination: General: awake, alert, oriented x 3 and cooperative, seated upright in bed in no apparent distress, initially eating. Skin: normal color, turgor, no icterus, cyanosis. HEENT: AT/NC, EOMI, PERRLA, mildly dry MM. Lungs: Diminished BS diffusely, > bases, mild effort, shallow, no rales, ronchi or wheezing. Heart: Regular rate and rhythm; no gallop, rub audible. Abdomen: soft, thin habitus, NTTP, ND, normal BS, no HSM. Extremities: no cyanosis, clubbing, or edema. Neurological: patient awake, alert, oriented x 3; cognitive function intact; pupils equally reactive to light and accomodation; cranial nerves II-XII grossly normal, moving all 4 extremities, no focal deficits, strength mildly to moderately globally decreased, equiv babinski BL, FTN/HTN intact, aphasia present, very mild, sensation intact. Psychiatric: affect appears mildly irritable, no acute evidence of depressive or anxiety feelings. Vitals/I&O's: Vital Signs Temp Pulse Resp BP Pulse Ox 98.2 F 79 16 143/77 H 98 09/17/17 02:00 09/17/17 02:00 09/17/17 02:00 09/17/17 02:00 09/17/17 02:00 Oxygen Flow Rate 2 Oxygen Delivery Method Room Air Weight: 109 lb 2.061 oz Body Mass Index (BMI) 17.1 Intake and Output for Last 24 Hours 09/15/17 09/16/1709/17/18 23:59 23:59 23:59 Intake Total 1130 / 1130 Output Total 200 / 200 Balance 930 / 930 Microbiology Past 72 Hours 09/16/17 19:00 Mucosa - Nasopharyngeal Influenza Types A,B Direct FA (JAYDE) - Final Laboratory Results 09/16/17 19:13: Specimen Type ART, Sample Site L Radial, pH 7.40, Bicarbonate Actual 22.6, POC Total CO2 24, Base Excess -2, O2 Saturation 98, ABG pCO2 36.6, ABG pO2 99, Umer Test POS, O2 Delivery Device Nasal Can, Liter Flow 2.0, Blood Gas Notified Whom GERTRUDIS MELGOZA, Blood Gas Notified Time 19009/16/17 19:27: GGT 20 09/16/17 19:27: Ethyl Alcohol < 3.0 09/16/17 19:27: B-Natriuretic Peptide 10.8 09/17/17 06:12: WBC 8.5, RBC 4.38 L, Hgb 13.4, Hct 40.2, MCV 91.8, MCH 30.6, MCHC 33.3, RDW 15.0 H, RDW Differential 50.8 H, Plt Count 333, MPV 9.0, Immature Gran % (Auto) 0.400, Neut % (Auto) 89.2 H, Lymph % (Auto) 7.6 L, [place] % (Auto) 2.6, Eos % (Auto) 0.0, Baso % (Auto) 0.2, Absolute Neuts (auto) 7.6, Absolute Lymphs (auto) 0.64 L, Total Counted Not Reportable 09/17/17 06:12: Total Bilirubin 0.20, Direct Bilirubin 0.06, AST 16, ALT 18, Alkaline Phosphatase 76, Total Protein 7.6, Albumin 3.1 L, Globulin 4.5 H Current Medications Acetaminophen (Tylenol) 650 mg PO Q6H PRN PRN PRN Reason: Mild Pain (scale 0-3)/T>100.7 Al Hydroxide/Mg Hydroxide (Mylanta Ii) 30 ml PO Q6H PRN PRN PRN Reason: Gastric Burning Albuterol Sulfate (Ventolin Aerosols) 2.5 mg INHALATION Q2H PRN PRN PRN Reason: SHORTNESS OF BREATH Albuterol/Ipratropium (Duoneb) 3 ml INHALATION Q4HWA.RT [facility] Last Admin: 09/17/17 08:08 Dose: 3 ml Amlodipine Besylate (Norvasc) 10 mg PO DAILY [facility] Aspirin (Aspirin, Baby) 81 mg PO DAILY@0800 [facility] Atorvastatin Calcium (Lipitor) 40 mg PO QHS [facility] Last Admin: 09/16/17 22:15 Dose: 40 mg Bisacodyl (Dulcolax) 10 mg RECTAL DAILY PRN PRN PRN Reason: Constipation Docusate Sodium (Colace) 200 mg PO BID PRN PRN PRN Reason: Constipation Enoxaparin Sodium (Lovenox) 40 mg SC DAILY@0600 [facility] Last Admin: 09/17/17 05:36 Dose: Not Given Fluticasone Propionate (Flonase Nasal [place]) 1 spray NASAL DAILY [facility] Folic Acid (Folic Acid) 1 mg PO DAILY@0800 [facility] Stop: 09/19/17 08:01 Azithromycin 500 mg/ Dextrose 255 mls @ 250 mls/hr IV Q24 [facility] Stop: 09/18/17 11:02 Last Admin: 09/16/17 20:04 Dose: 250 mls/hr Lorazepam (Ativan) 0.5 mg PO TID PRN PRN PRN Reason: ANXIETY Lorazepam (Ativan) 2 mg PO Q2H PRN PRN; Protocol PRN Reason: CIWA score > 8 but <15 Lorazepam (Ativan) 2 mg PO UD PRN; Protocol PRN Reason: CIWA score >/=15. Lorazepam (Ativan) 2 mg IV Q2H PRN PRN; Protocol PRN Reason: CIWA score > 8 but <15 Lorazepam (Ativan) 2 mg IV UD PRN; Protocol PRN Reason: CIWA score >/=15. Methylprednisolone (Solu-Medrol) 40 mg IV Q8 [facility] Last Admin: 09/17/17 05:34 Dose: 40 mg Morphine Sulfate (Morphine) 1 - 2 mg IV Q4H PRN PRN PRN Reason: SEVERE PAIN (6-10/10) Multivitamins/Minerals (Multivitamin With Minerals) [facility] Nicotine (Nicoderm Cq (Pbkc)) 21 mg TRANSDERM. DAILY [facility] Nutritional Formula (Lactose Free) (Ensure Enlive) 120 ml PO TID [facility] Last Admin: 09/17/17 05:34 Dose: 120 ml Ondansetron HCl (Zofran) 4 mg IV Q8H PRN PRN PRN Reason: Nausea Oxycodone HCl (Oxyir) 5 mg PO Q4H PRN PRN PRN Reason: Moderate Pain (pain scale 4-5) Sodium Chloride () 5 - 30 ml IV UD PRN PRN Reason: SALINE FLUSH Thiamine HCl (Vitamin B1) 100 mg PO BIDCM [facility] Stop: 09/19/17 17:01 Zolpidem Tartrate (Ambien (Generic)) 5 mg PO QHS PRN PRN PRN Reason: INSOMNIA Assessment/Plan Active and Suspected Problems Acute respiratory failure with hypoxia (Acute) COPD (chronic obstructive pulmonary disease) with acute bronchitis (Acute) The patient is a 62 y/o M w/ PMHx: CVA, COPD, HTN, HLD, Throat CA, PAD, EtOH Abuse who presents to the [facility] ED On 09/16/17 with history of ongoing, progressively worsening dyspnea, congestion x 3 days. (1) Acute Hypoxic Respiratory Failure secondary to Acute on chronic COPD exacerbation: CXR w/ chronic changes, admitted to [place], maintain on oxygen with wean as tolerated to room air, continue ATC duonebs, PRN albuterol, IV methylprednisolone with prednisone transition once appropriate, HOB, IS parameters, IV Azithromcyin with pending sputum cultures. Respiratory panel requested. (2) Recent Acute CVA: Following with Neurology outpatient, residual receptive aphasia. MRI Brain, MRA head and neck, ECHO ordered to complete evaluation, Mag , Phos, TSH, FLP pending. PT, OT, Speech consulted. (3) EtOH Abuse: Will maintain on CIWA protocol, MVI, thiamine and folic acid, will maintain on PRN IV ativan regimen to avoid EtOH associated withdrawal in addition. Mag, phos pending. (4) Tobacco Abuse: Encouraged cessation, inpatient consultation per RT, NR if desired. (5) PAD: s/p R SFA RLE w/ stenting, following w/ [facility], planned follow-up for noted anterior superior thigh spherical firm nodule. Maintain on asa, statin. (6) Hypertension: Continue home regimen including norvasc, PRN hydralazine. (7) Hyperlipidemia: Continue home statin regimen. AM FLP. (8) Throat CA: Remission noted, possible cervical node cancer s/p chemotherapy and radiation, poor historian. (9) Severe Protein-Calorie Malnutrition: Evidenced per habitus, weight loss, fat and muscle wasting, nutrition consulted. (10) DVT Prophylaxis: SCDs, lovenox. Code Visit Inpatient E&M: 32474 Subs Hosp L3
[2017-09-17 09:28] LABS: Magnesium 2.1 mg/dL (1.6-2.6); Phosphorus 3.2 mg/dL (2.5-4.9); T4 Free Direct 0.98 ng/dL (0.76-1.46); Thyroid Stim Hormone (TSH) 1.58 uIU/mL (0.358-3.74)
[2017-09-17] MEDS: LORazepam 0.5 MG Tablet PO ×2 (09:40→16:07)
--- NOTE | 2017-09-17 09:53 | NURSING ---
Patient taken downstairs by radiology at this time.
[2017-09-17] MEDS: 0.9% NaCl Peripheral Flush Adult/Peds IV ×3 (11:00→20:19)
[2017-09-17] MEDS: Thiamine Hydrochloride 100 MG Tablet PO ×2 (11:03→16:07)
[2017-09-17] MEDS: Fluticasone 0.05% 1 SPRAY NASAL.SRY NASAL (11:03)
[2017-09-17] MEDS: Folic Acid 1 MG Tablet PO (11:03)
[2017-09-17] MEDS: amLODIPine 10 MG Tablet PO (11:03)
[2017-09-17] MEDS: Multivitamins,Ther W-Minerals Tablet 1 TABLET PO (11:07)
[2017-09-17] MEDS: Aspirin 81 MG TAB.CHEW PO (11:07)
[2017-09-17] MEDS: Acetaminophen 325 MG Tablet 650 MG PO ×2 (11:07→20:20)
--- NOTE | 2017-09-17 11:16 | NURSING ---
echo in progress in patient's room at this time.
--- NOTE | 2017-09-17 14:19 | CASEMGMT ---
See RN CM Assessment. DC PLAN: Home with significant other. -SW to evaluate for dc needs re: ETOH use.
[2017-09-17 16:37] LABS: Pathologist Review Reviewed
[2017-09-17] MEDS: Atorvastatin Calcium 40 MG Tablet PO (20:20)
[2017-09-18] VITALS (9 sets, daily range): BP systolic 132–156; BP diastolic 70–95; PULSE 84–121; RESP 16–20; TEMP 36–36.6; O2SAT 94–96
[2017-09-18] MEDS: Enoxaparin 40 MG/0.4 ML Syringe SC (05:19)
[2017-09-18] MEDS: 0.9% NaCl Peripheral Flush Adult/Peds IV ×3 (05:21→19:41)
--- NOTE | 2017-09-18 06:59 | PCM.PN.HOSP ---
Patient Problems: Active and Suspected Problems Acute respiratory failure with hypoxia (Acute) COPD (chronic obstructive pulmonary disease) with acute bronchitis (Acute) Subjective: Patient with no acute events overnight per self and per nursing report. Patient breathing status has improved markedly and he notes that he is breathing with greater ease with no marketed coughing fits. Discussed at length workup while inpatient for history of stroke which had been ongoing outpatient but was able to be completed in patient with notable findings with carotid disease with pending evaluation per surgery. Discussed with patient further plans with pending neurology evaluation as well. She is eager for discharge but did discuss possibility of intervention needs for carotid disease otherwise likely to have ongoing elevated stroke risk despite initiation of appropriate regimen. Patient denies fevers, chills, nausea, emesis, abdominal pain, chest pain or worsened dyspnea. Objective: Physical Examination: General: awake, alert, oriented x 3 and cooperative, seated upright in bed, NAD. Skin: normal color, turgor, no icterus, cyanosis. HEENT: AT/NC, EOMI, PERRLA, MMM. Lungs: Improved, still diminished BS, > bases, improved moderate effort, no rales, ronchi or wheezing. Heart: Regular rate and rhythm; no gallop, rub audible. Abdomen: soft, thin habitus, NTTP, ND, normal BS. Extremities: no cyanosis, clubbing, or edema. Neurological: patient awake, alert, oriented x 3; cognitive function intact; pupils equally reactive to light and accomodation; cranial nerves II-XII grossly normal, moving all 4 extremities, no focal deficits, strength mildly to moderately globally decreased, equiv babinski BL, FTN/HTN intact, aphasia present, sensation intact. Psychiatric: affect appears normal, more calm this AM, noted willingness to have ongoing evaluation for CVA, no acute evidence of depressive or anxiety feelings. Vitals/I&O's: Vital Signs Temp Pulse Resp BP Pulse Ox 97.6 F L 84 18 132/70 H 96 09/18/17 06:00 09/18/17 06:00 09/18/17 06:00 09/18/17 06:00 09/18/17 06:00 Oxygen Flow Rate 2 Oxygen Delivery Method Room Air Weight: 109 lb 2.061 oz Body Mass Index (BMI) 17.1 Intake and Output for Last 24 Hours 09/16/17 09/17/17 09/18/17 23:59 23:59 23:59 Intake Total 3112 / 3112 Output Total 200 / 200 Balance 2912 / 2912 Microbiology Past 72 Hours 09/16/17 19:00 Mucosa - Nasopharyngeal Influenza Types A,B Direct FA (JAYDE) - Final Laboratory Results 09/17/17 06:12: Phosphorus 3.2, Magnesium 2.1, TSH 1.58, Free T4 0.98 09/18/17 06:15: Triglycerides Pending, Cholesterol Pending, LDL Cholesterol Pending, VLDL Cholesterol Pending, HDL Cholesterol Pending Current Medications Acetaminophen (Tylenol) 650 mg PO Q6H PRN PRN PRN Reason: Mild Pain (scale 0-3)/T>100.7 Last Admin: 09/17/17 20:20 Dose: 650 mg Al Hydroxide/Mg Hydroxide (Mylanta Ii) 30 ml PO Q6H PRN PRN PRN Reason: Gastric Burning Albuterol Sulfate (Ventolin Aerosols) 2.5 mg INHALATION Q2H PRN PRN PRN Reason: SHORTNESS OF BREATH Albuterol/Ipratropium (Duoneb) 3 ml INHALATION Q4HWA.RT [facility] Last Admin: 09/17/17 19:40 Dose: 3 ml Amlodipine Besylate (Norvasc) 10 mg PO DAILY [facility] Last Admin: 09/17/17 11:03 Dose: 10 mg Aspirin (Aspirin, Baby) 81 mg PO DAILY@0800 [facility] Last Admin: 09/17/17 11:07 Dose: 81 mg Atorvastatin Calcium (Lipitor) 40 mg PO QHS [facility] Last Admin: 09/17/17 20:20 Dose: 40 mg Bisacodyl (Dulcolax) 10 mg RECTAL DAILY PRN PRN PRN Reason: Constipation Docusate Sodium (Colace) 200 mg PO BID PRN PRN PRN Reason: Constipation Enoxaparin Sodium (Lovenox) 40 mg SC DAILY@0600 [facility] Last Admin: 09/18/17 05:19 Dose: 40 mg Fluticasone Propionate (Flonase Nasal [place]) 1 spray NASAL DAILY [facility] Last Admin: 09/17/17 11:03 Dose: 1 spray Folic Acid (Folic Acid) 1 mg PO DAILY@0800 [facility] Stop: 09/19/17 08:01 Last Admin: 09/17/17 11:03 Dose: 1 mg Hydralazine HCl (Apresoline) 10 mg IV Q4H PRN PRN PRN Reason: SBP > 160 Hydroxyzine Pamoate (Vistaril) 25 mg PO TID PRN PRN PRN Reason: ANXIETY Azithromycin 500 mg/ Dextrose 255 mls @ 250 mls/hr IV Q24 [facility] Stop: 09/18/17 11:02 Last Admin: 09/17/17 11:03 Dose: 250 mls/hr Lorazepam (Ativan) 0.5 mg PO TID PRN PRN PRN Reason: ANXIETY Last Admin: 09/17/17 16:07 Dose: 0.5 mg Lorazepam (Ativan) 2 mg PO Q2H PRN PRN; Protocol PRN Reason: CIWA score > 8 but <15 Lorazepam (Ativan) 2 mg PO UD PRN; Protocol PRN Reason: CIWA score >/=15. Lorazepam (Ativan) 2 mg IV Q2H PRN PRN; Protocol PRN Reason: CIWA score > 8 but <15 Lorazepam (Ativan) 2 mg IV UD PRN; Protocol PRN Reason: CIWA score >/=15. Methylprednisolone (Solu-Medrol) 40 mg IV Q8 [facility] Last Admin: 09/18/17 05:19 Dose: 40 mg Morphine Sulfate (Morphine) 1 - 2 mg IV Q4H PRN PRN PRN Reason: SEVERE PAIN (6-10/10) Multivitamins/Minerals (Multivitamin With Minerals) [facility] Last Admin: 09/17/17 11:07 Dose: 1 tablet Nicotine (Nicoderm Cq (Pbkc)) 21 mg TRANSDERM. DAILY [facility] Last Admin: 09/17/17 11:02 Dose: Not Given Nitroglycerin (Nitrostat) 0.4 mg SUBLINGUAL Q5M PRN PRN Reason: Angina pain Nutritional Formula (Lactose Free) (Ensure Enlive) 120 ml PO TID [facility] Last Admin: 09/18/17 05:21 Dose: 120 ml Ondansetron HCl (Zofran) 4 mg IV Q8H PRN PRN PRN Reason: NAUSEA/VOMITING Oxycodone HCl (Oxyir) 5 mg PO Q4H PRN PRN PRN Reason: Moderate Pain (pain scale 4-5) Sodium Chloride () 5 - 30 ml IV UD PRN PRN Reason: SALINE FLUSH Last Admin: 09/18/17 05:21 Dose: 10 ml Thiamine HCl (Vitamin B1) 100 mg PO BIDCM [facility] Stop: 09/19/17 17:01 Last Admin: 09/17/17 16:07 Dose: 100 mg Zolpidem Tartrate (Ambien (Generic)) 5 mg PO QHS PRN PRN PRN Reason: INSOMNIA Assessment/Plan Active and Suspected Problems Acute respiratory failure with hypoxia (Acute) COPD (chronic obstructive pulmonary disease) with acute bronchitis (Acute) The patient is a 62 y/o M w/ PMHx: CVA, COPD, HTN, HLD, Throat CA, PAD, EtOH Abuse who presents to the [facility] ED On 09/16/17 with history of ongoing, progressively worsening dyspnea, congestion x 3 days. (1) Acute Hypoxic Respiratory Failure secondary to Acute on chronic COPD exacerbation: CXR w/ chronic changes, admitted to [place], maintain on oxygen with wean as tolerated to room air, continue ATC duonebs, PRN albuterol, IV methylprednisolone with prednisone transition once appropriate, HOB, IS parameters, IV Azithromcyin with pending sputum cultures. Respiratory panel requested. (2) ? Acute CVA, MRI non-acute appearing but REMOVE CVA findings: Following with Neurology outpatient, residual receptive aphasia. MRI Brain w/ no acute or evolving ischemic infarct, extensive confluent hyperintense signal in the deep white matter tracts consistent with severe chronic white matter ischemic changes, remote small periventricular lacunar infarctions, multiple remote lacunar infarctions of the bilateral thalami, chronic white matter ischemic changes of the daly with small remote lacunar infarctions, extensive chronic sinusitis bilateral maxillary sinus regions, MRA head w/ ectatic elongation and tortuosity of the bilateral cavernous carotid arteries without hemodynamically significant stenosis, incomplete nez perce of [place] with absence of the left posterior Indicating artery and MRA neck w/ significant patient motion artifact, atherosclerotic tortuosity and elongation of the bilateral common carotid arteries, 73% stenosis of the right internal carotid artery, greater than 96% stenosis of the origin of the left internal carotid artery, ECHO w/ LV systolic function, 65%, trivial MV insufficiency, trivial TV insufficiency, RVSP 22 mmHg, transmitral Doppler flow suggestive of impaired relaxation LV, Mag, Phos, TSH normal. FLP not marked appearing. PT, OT, Speech consulted. Dr. Hudson, Surgery consulted for evaluation BL carotid disease with carotid duplex ordered also to assure consistent findings. Neurology consulted given atypical findings on MRI, pending. (3) EtOH Abuse: Will maintain on CIWA protocol, MVI, thiamine and folic acid, will maintain on PRN IV ativan regimen to avoid EtOH associated withdrawal in addition. Mag, phos normal. (4) Tobacco Abuse: Encouraged cessation, inpatient consultation per RT, NR if desired. (5) PAD: s/p R SFA RLE w/ stenting, following w/ [facility], planned follow-up for noted anterior superior thigh spherical firm nodule. Maintain on asa, statin. Vascular consulted, Dr. Hudson as noted for BL carotid disease. (6) Hypertension: Continue home regimen including norvasc, PRN hydralazine. (7) Hyperlipidemia: Continue home statin regimen. AM FLP not marked appearing. 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 Mari. (9) Severe Protein-Calorie Malnutrition: Evidenced per habitus, weight loss, fat and muscle wasting, nutrition consulted. (10) DVT Prophylaxis: SCDs, lovenox. Code Visit Inpatient E&M: 52739 Subs Hosp L2
[2017-09-18 07:01] LABS: Cholesterol 155 mg/dL (200); High Density Lipoprotein 78 mg/dL; Triglycerides 60 mg/dL; Very Low Density Lipoprotein 12 mg/dL (5-40)
--- NOTE | 2017-09-18 07:07 | CDU_ITS ---
Reason For Study: CVA Rt. Velocities/BP Lt. Velocities/BP Prox CCA 113/18 cm/sec. Prox CCA 261/33 cm/sec. Mid CCA 109/17 cm/sec. Mid CCA 270/36 cm/sec. Dist CCA 101/15 cm/sec. Dist CCA 240/30 cm/sec. Prox ICA 208/45 cm/sec. Prox ICA 120/24 cm/sec. Mid ICA 250/30 cm/sec. Mid ICA 94/25 cm/sec. Dist ICA 110/18 cm/sec. Dist ICA 73/23 cm/sec. Rt. ICA/CCA = 2.29. Lt. ICA/CCA = 0.44. Prox ECA 153/20 cm/sec. Prox ECA 203/22 cm/sec. Rt. Vert. 175/17 cm/sec. Lt. Vert. 67/12 cm/sec. Right Extracranial There is homogeneous, smooth atherosclerotic plaque noted in the right common carotid artery. There is heterogeneous, irregular atherosclerotic plaque noted in the right internal carotid artery. There is heterogeneous, irregular atherosclerotic plaque noted in the right external carotid artery. Antegrade flow is noted in the right vertebral artery. Left Extracranial There is homogeneous, smooth atherosclerotic plaque noted in the left common carotid artery. There is heterogeneous, smooth atherosclerotic plaque noted in the left internal carotid artery. There is intimal thickening but no significant atherosclerotic plaque noted in the left external carotid artery. Antegrade flow is noted in the left vertebral artery. Procedure Carotid Duplex [id number]. Exam performed portable in patient room. Interpretation Summary Calcific plague with shadowing at the proximal right internal carotid with >70% stenosis. Mild disease right external carotid Increased velocity right vertebral. Increase velocity and turbulent flow left common carotid consistent with clinical disease. Notably different from the right. <50% stenosis left internal carotid Moderate disease left external carotid Normal flow left vertebral Ordering Physician: Tyra Casiano Referring Physician: Arpit Diaz Performed By: Kassidy Kirby RDCS, RVT
--- NOTE | 2017-09-18 07:09 | PN_ITS ---
Patient Problems: Active and Suspected Problems Acute respiratory failure with hypoxia (Acute) COPD (chronic obstructive pulmonary disease) with acute bronchitis (Acute) Subjective: Patient with no acute events overnight per self and per nursing report. Patient breathing status has improved markedly and he notes that he is breathing with greater ease with no marketed coughing fits. Discussed at length workup while inpatient for history of stroke which had been ongoing outpatient but was able to be completed in patient with notable findings with carotid disease with pending evaluation per surgery. Discussed with patient further plans with pending neurology evaluation as well. She is eager for discharge but did discuss possibility of intervention needs for carotid disease otherwise likely to have ongoing elevated stroke risk despite initiation of appropriate regimen. Patient denies fevers, chills, nausea, emesis, abdominal pain, chest pain or worsened dyspnea. Objective: Physical Examination: General: awake, alert, oriented x 3 and cooperative, seated upright in bed, NAD. Skin: normal color, turgor, no icterus, cyanosis. HEENT: AT/NC, EOMI, PERRLA, MMM. Lungs: Improved, still diminished BS, > bases, improved moderate effort, no rales, ronchi or wheezing. Heart: Regular rate and rhythm; no gallop, rub audible. Abdomen: soft, thin habitus, NTTP, ND, normal BS. Extremities: no cyanosis, clubbing, or edema. Neurological: patient awake, alert, oriented x 3; cognitive function intact; pupils equally reactive to light and accomodation; cranial nerves II-XII grossly normal, moving all 4 extremities, no focal deficits, strength mildly to moderately globally decreased, equiv babinski BL, FTN/HTN intact, aphasia present, sensation intact. Psychiatric: affect appears normal, more calm this AM, noted willingness to have ongoing evaluation for CVA, no acute evidence of depressive or anxiety feelings. Vitals/I&O's: Vital Signs Temp Pulse Resp BP Pulse Ox 97.6 F L 84 18 132/70 H 96 09/18/17 06:00 09/18/17 06:00 09/18/17 06:00 09/18/17 06:00 09/18/17 06:00 Oxygen Flow Rate 2 Oxygen Delivery Method Room Air Weight: 109 lb 2.061 oz Body Mass Index (BMI) 17.1 Intake and Output for Last 24 Hours 09/16/17 09/17/17 09/18/17 23:59 23:59 23:59 Intake Total 3112 / 3112 Output Total 200 / 200 Balance 2912 / 2912 Microbiology Past 72 Hours 09/16/17 19:00 Mucosa - Nasopharyngeal Influenza Types A,B Direct FA (JAYDE) - Final Laboratory Results 09/17/17 06:12: Phosphorus 3.2, Magnesium 2.1, TSH 1.58, Free T4 0.98 09/18/17 06:15: Triglycerides Pending, Cholesterol Pending, LDL Cholesterol Pending, VLDL Cholesterol Pending, HDL Cholesterol Pending Current Medications Acetaminophen (Tylenol) 650 mg PO Q6H PRN PRN PRN Reason: Mild Pain (scale 0-3)/T>100.7 Last Admin: 09/17/17 20:20 Dose: 650 mg Al Hydroxide/Mg Hydroxide (Mylanta Ii) 30 ml PO Q6H PRN PRN PRN Reason: Gastric Burning Albuterol Sulfate (Ventolin Aerosols) 2.5 mg INHALATION Q2H PRN PRN PRN Reason: SHORTNESS OF BREATH Albuterol/Ipratropium (Duoneb) 3 ml INHALATION Q4HWA.RT [facility] Last Admin: 09/17/17 19:40 Dose: 3 ml Amlodipine Besylate (Norvasc) 10 mg PO DAILY [facility] Last Admin: 09/17/17 11:03 Dose: 10 mg Aspirin (Aspirin, Baby) 81 mg PO DAILY@0800 [facility] Last Admin: 09/17/17 11:07 Dose: 81 mg Atorvastatin Calcium (Lipitor) 40 mg PO QHS [facility] Last Admin: 09/17/17 20:20 Dose: 40 mg Bisacodyl (Dulcolax) 10 mg RECTAL DAILY PRN PRN PRN Reason: Constipation Docusate Sodium (Colace) 200 mg PO BID PRN PRN PRN Reason: Constipation Enoxaparin Sodium (Lovenox) 40 mg SC DAILY@0600 [facility] Last Admin: 09/18/17 05:19 Dose: 40 mg Fluticasone Propionate (Flonase Nasal [place]) 1 spray NASAL DAILY [facility] Last Admin: 09/17/17 11:03 Dose: 1 spray Folic Acid (Folic Acid) 1 mg PO DAILY@0800 [facility] Stop: 09/19/17 08:01 Last Admin: 09/17/17 11:03 Dose: 1 mg Hydralazine HCl (Apresoline) 10 mg IV Q4H PRN PRN PRN Reason: SBP > 160 Hydroxyzine Pamoate (Vistaril) 25 mg PO TID PRN PRN PRN Reason: ANXIETY Azithromycin 500 mg/ Dextrose 255 mls @ 250 mls/hr IV Q24 [facility] Stop: 09/18/17 11:02 Last Admin: 09/17/17 11:03 Dose: 250 mls/hr Lorazepam (Ativan) 0.5 mg PO TID PRN PRN PRN Reason: ANXIETY Last Admin: 09/17/17 16:07 Dose: 0.5 mg Lorazepam (Ativan) 2 mg PO Q2H PRN PRN; Protocol PRN Reason: CIWA score > 8 but <15 Lorazepam (Ativan) 2 mg PO UD PRN; Protocol PRN Reason: CIWA score >/=15. Lorazepam (Ativan) 2 mg IV Q2H PRN PRN; Protocol PRN Reason: CIWA score > 8 but <15 Lorazepam (Ativan) 2 mg IV UD PRN; Protocol PRN Reason: CIWA score >/=15. Methylprednisolone (Solu-Medrol) 40 mg IV Q8 [facility] Last Admin: 09/18/17 05:19 Dose: 40 mg Morphine Sulfate (Morphine) 1 - 2 mg IV Q4H PRN PRN PRN Reason: SEVERE PAIN (6-10/10) Multivitamins/Minerals ([facility]ivitamin With Minerals) [facility] Last Admin: 09/17/17 11:07 Dose: 1 tablet Nicotine (Nicoderm Cq (Pbkc)) 21 mg TRANSDERM. DAILY [facility] Last Admin: 09/17/17 11:02 Dose: Not Given Nitroglycerin (Nitrostat) 0.4 mg SUBLINGUAL Q5M PRN PRN Reason: Angina pain Nutritional Formula (Lactose Free) (Ensure Enlive) 120 ml PO TID [facility] Last Admin: 09/18/17 05:21 Dose: 120 ml Ondansetron HCl (Zofran) 4 mg IV Q8H PRN PRN PRN Reason: NAUSEA/VOMITING Oxycodone HCl (Oxyir) 5 mg PO Q4H PRN PRN PRN Reason: Moderate Pain (pain scale 4-5) Sodium Chloride () 5 - 30 ml IV UD PRN PRN Reason: SALINE FLUSH Last Admin: 09/18/17 05:21 Dose: 10 ml Thiamine HCl (Vitamin B1) 100 mg PO BIDCM [facility] Stop: 09/19/17 17:01 Last Admin: 09/17/17 16:07 Dose: 100 mg Zolpidem Tartrate (Ambien (Generic)) 5 mg PO QHS PRN PRN PRN Reason: INSOMNIA Assessment/Plan Active and Suspected Problems Acute respiratory failure with hypoxia (Acute) COPD (chronic obstructive pulmonary disease) with acute bronchitis (Acute) The patient is a 62 y/o M w/ PMHx: CVA, COPD, HTN, HLD, Throat CA, PAD, EtOH Abuse who presents to the [facility] ED On 09/16/17 with history of ongoing, progressively worsening dyspnea, congestion x 3 days. (1) Acute Hypoxic Respiratory Failure secondary to Acute on chronic COPD exacerbation: CXR w/ chronic changes, admitted to [place], maintain on oxygen with wean as tolerated to room air, continue ATC duonebs, PRN albuterol, IV methylprednisolone with prednisone transition once appropriate, HOB, IS parameters, IV Azithromcyin with pending sputum cultures. Respiratory panel requested. (2) ? Acute CVA, MRI non-acute appearing but REMOVE CVA findings: Following with Neurology outpatient, residual receptive aphasia. MRI Brain w/ no acute or evolving ischemic infarct, extensive confluent hyperintense signal in the deep white matter tracts consistent with severe chronic white matter ischemic changes , remote small periventricular lacunar infarctions, multiple remote lacunar infarctions of the bilateral thalami, chronic white matter ischemic changes of the daly with small remote lacunar infarctions, extensive chronic sinusitis bilateral maxillary sinus regions, MRA head w/ ectatic elongation and tortuosity of the bilateral cavernous carotid arteries without hemodynamically significant stenosis, incomplete burns paiute of [place] with absence of the left posterior Indicating artery and MRA neck w/ significant patient motion artifact , atherosclerotic tortuosity and elongation of the bilateral common carotid arteries, 73% stenosis of the right internal carotid artery, greater than 96% stenosis of the origin of the left internal carotid artery, ECHO w/ LV systolic function, 65%, trivial MV insufficiency, trivial TV insufficiency, RVSP 22 mmHg , transmitral Doppler flow suggestive of impaired relaxation LV, Mag, Phos, TSH normal. FLP not marked appearing. PT, OT, Speech consulted. Dr. Hudson, Surgery consulted for evaluation BL carotid disease with carotid duplex ordered also to assure consistent findings. Neurology consulted given atypical findings on MRI, pending. (3) EtOH Abuse: Will maintain on CIWA protocol, MVI, thiamine and folic acid, will maintain on PRN IV ativan regimen to avoid EtOH associated withdrawal in addition. Mag, phos normal. (4) Tobacco Abuse: Encouraged cessation, inpatient consultation per RT, NR if desired. (5) PAD: s/p R SFA RLE w/ stenting, following w/ [facility], planned follow-up for noted anterior superior thigh spherical firm nodule. Maintain on asa, statin. Vascular consulted, Dr. Hudson as noted for BL carotid disease. (6) Hypertension: Continue home regimen including norvasc, PRN hydralazine. (7) Hyperlipidemia: Continue home statin regimen. AM FLP not marked appearing. 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 Mari. (9) Severe Protein-Calorie Malnutrition: Evidenced per habitus, weight loss, fat and muscle wasting, nutrition consulted. (10) DVT Prophylaxis: SCDs, lovenox. Code Visit Inpatient E&M: 63916 Subs Hosp L2
--- NOTE | 2017-09-18 07:45 | NURSING ---
Sig. other requests patient get medication for anxiety.
[2017-09-18] MEDS: Thiamine Hydrochloride 100 MG Tablet PO ×2 (07:51→17:49)
[2017-09-18] MEDS: Aspirin 81 MG TAB.CHEW PO (07:51)
[2017-09-18] MEDS: LORazepam 0.5 MG Tablet PO (07:51)
[2017-09-18] MEDS: Folic Acid 1 MG Tablet PO (07:51)
--- NOTE | 2017-09-18 09:12 | PCM.CONS.GEN ---
<Messi Hudson - Last Filed: 09/18/17 11:26> Reason for Consult History of Present Illness: The patient is a 62 year old M [] Past Medical History Past Medical History (Chronic Problems): Chronic Problems COPD (chronic obstructive pulmonary disease) with emphysema (Chronic) Ischemic stroke (Chronic) Recent about 2-3 weeks ago Hypertension (Chronic) Dyslipidemia (Chronic) Throat cancer (Chronic) Peripheral arterial disease (Chronic) Right inguinal hernia (Chronic) H/O: stroke (Chronic) Allergies No Known Allergies Allergy (Verified 09/26/15 18:58) Home Medications: Ambulatory Orders Medication Instructions Recorded Fluticasone Propionate [Flonase 1 spray NS DAILY 09/26/15 Allergy Relief] Lorazepam [Ativan] 0.5 mg PO TID PRN PRN 09/26/15 Aspirin [Aspirin, Baby] 81 mg PO DAILY@0800 09/16/17 Budesonide/Formoterol 160/4.5 2 puff INHALATION BID 09/16/17 [Symbicort 160/4.5 Mcg Inhaler (SP)] Albuterol IH (ProAir) [Proair Hfa] 1 - 2 puff INHALATION Q2H PRN PRN 09/18/17 #1 inhaler Amlodipine [Norvasc] 10 mg PO DAILY #30 tab 09/18/17 Atorvastatin Calcium 80 mg PO QHS #30 tab 09/18/17 Folic Acid 1 mg PO DAILY@0800 #30 tab 09/18/17 Multivitamins,Ther W-Minerals 1 tab PO DAILYCM #30 tab 09/18/17 [Multivitamin With Minerals] Nicotine [Nicoderm Cq] 21 mg TRANSDERM. DAILY #14 patch 09/18/17 Prednisone 10 mg PO UD #30 tab 09/18/17 Thiamine Hydrochloride [Vitamin B1] 100 mg PO BIDCM #60 tab 09/18/17 - Physical Exam Vital Signs Temp Pulse Resp BP Pulse Ox 97.2 F L 108 H 20 H 144/78 H 95 09/18/17 09:28 09/18/17 09:28 09/18/17 09:28 09/18/17 09:28 09/18/17 09:28 Oxygen Flow Rate 2 Oxygen Delivery Method Room Air Weight: 109 lb 2.061 oz Body Mass Index (BMI) 17.1 Intake and Output for Last 24 Hours 01/09/17/17 09/18/17 23:59 23:59 23:59 Intake Total 3112 / 3112 Output Total 200 / 200 Balance 2912 / 2912 Microbiology Past 72 Hours 09/17/17 13:35 Respiratory Panel (PCR) - Final Mucosa - Nasopharyngeal 09/16/17 19:00 Influenza Types A,B Direct FA (JAYDE) - Final Mucosa - Nasopharyngeal Laboratory Tests Past 24 Hrs 09/18/17 06:15 Triglycerides 60 Cholesterol 155 LDL Cholesterol 65 VLDL Cholesterol 12 HDL Cholesterol 78 Assessment/Plan I have completely reviewed and completed history and physical as noted. I have personally reviewed history and physical with the patient but have found that history is not obtainable from him. I very much appreciate the excellent review performed above. The very pertinent features include the fact that the patient has had multiple TIAs extending back at least to 2005. He has had known extracranial carotid artery occlusive disease while he has been managed by expert vascular surgeons from [facility]. He currently has Dr. Corbin as his more local vascular surgeon. The current MRA images unfortunately of poor quality. I have just checked in the carotid duplex imaging has not yet been accomplished. Certainly this can be utilized to help guide the patient's ongoing carotid vascular treatment. It is my understanding that he has declined previous intervention. The patient has had chemoradiation of his neck for throat cancer. The patient has significant COPD and in fact was hospitalized with exacerbation of that currently. He has ongoing tobacco and alcohol use. He by report has had very difficult complicated limb salvage techniques performed to the right lower extremity with subsequent residual seroma and large hernia. Pending the results of the carotid duplex then further treatment options can be advised. I do not believe that this patient would be a good candidate for general anesthesia or carotid endarterectomy in view of his radiation treatment and pulmonary disease. He might be a candidate for carotid stenting which unfortunately is a procedure that I do not perform and is not performed here locally at [facility]. I will report his ongoing carotid findings but at this point recommend that upon discharge that the patient should follow-up with his vascular surgeon of record Dr. Corbin so that she can pursue his carotid disease as well. I very much appreciate the kind opportunity of assisting with his surgical care Messi Hudson M.D., F.A.C.S. <Chrystal Grijalva - Last Filed: 02/05/18 09:26> Problem List (1) Ischemic stroke Status: Chronic Comment: Recent about 2-3 weeks ago (2) Peripheral arterial disease Status: Chronic Reason for Consult Date of Consultation: 09/18/17 Reason for Consultation: Ischemic stroke. PAD. Carotid stenosis History of Present Illness: The patient is a 62 year old M who presented with shortness of breath and COPD exacerbation. Patient is a poor historian and non-compliant. Majority of patient's history was provided by his significant other who was present in the room. Patient is a 1/2 ppd smoker x 40+ years. He consumes 3 beers/ day for at least 3 years. He notes alcohol consumption has been cut in half within the last few months. Patient has a significant history of TIA's and stroke dating back to the first TIA in 2005 per significant other. Patient has had a history of peripheral vascular disease with multiple emergent interventions completed on the right lower extremity. Patient's significant other noted he was hospitalized few years ago with a black foot at [facility]. Per [facility] records it appears, Dr. Dukes had performed an emergent endovascular revascularize percutaneous iliac artery unilateral w/ transluminal stent and angioplasty on 06/17/2014. Patient followed up with [facility] once following the procedure and has continued to follow-up with his PCP for PAD with claudication. Patient again developed severe pain and acute right lower extremity ischemia for which he was sent up to [facility] with Dr. Rodriguez, who emergently performed a Right common iliac, external iliac artery, and profunda femoral artery thrombectomy, remote right superficial femoral artery endarterectomy, bovine patch angioplasty, right leg arteriography, angioplasty and stenting with Viabahn 7 x 5 mm stent graft and 8 x 60 mm Nitinol stent, 4-compartment fasciotomy right leg, and complex closure of right groin with sartorius muscle flap on 09/27/2015. Patient was discharged home on Plavix and ASA at that time. Patient followed up with Dr. Rodriguez 6 months following the procedure. Per patient, he had developed a lump which was increasing in size at the incision site. Dr. Rodriguez noted this was a seroma and would resolve. Patient followed up with Dr. Rodriguez on 06/04/2016. At that time the patient stated he was having stroke-like symptoms and was sent to the ED at [facility] for further evaluation. Carotid duplex was obtained at that time demonstrating 40-59% stenosis of the right side and 20-39% stenosis of the left side. Patient declined admission for CVA. Patient was referred to Dr. Corbin in February of 2017 for PAD with claudication by Dr. Diaz his PCP. Dr. Resendiz has ordered PVR testing of bilateral lower extremities and follow-up after testing. Per the significant other, patient is scheduled to follow-up with Dr. Corbin next week to discuss testing and possible intervention. Patient's significant other noted patient has established with a neurologist, Dr. Riley, who she notes will see the patient in the hospital. Patient notes he is taking 81 mg ASA at home with a blood pressure medication. He has stopped all other anticoagulants. He is to be on Lipitor for cholesterol however he has not been taking this. Patient's significant other voices concern in regards to patient's compliance. Patient does note difficulty finding his words intermittently and has multiple falls at home. Patient also has a history of Throat and tongue cancer diagnosis in 2012. Patient has had previous radiation by Dr. House and chemotherapy with Dr. Mari. No surgical intervention was completed other than the biopsy to prove cancer per significant other. Patient notes he has not followed up with Dr. Mari in years. He continues to smoke and consume alcohol. He denies following with ENT physician. Patient also notes a large lump in the right groin. He denies pain/discomfort. He notes the lump has been there for a while. Patient has a history of COPD, which he does not follow with a pulmonary physician. He has a productive cough, which he notes getting short of breath with coughing. His significant other notes he is unable to walk to the bathroom without becoming winded and short of breath. He also notes poor appetite. He denies previous history of PE or DVT and myocardial infarction. Patient had an MRA of the neck in the ED on 09/17/17 which demonstrated 73% stenosis of the right internal carotid and 90% stenosis of the left internal carotid. ECHO was performed demonstrating EF 65%. Past Medical History Allergies No Known Allergies Allergy (Verified 09/26/15 18:58) Smoking Status: Current every day smoker Alcohol: Heavy - About 3 beers daily since teenager - *Family History Paternal History Items: No pertinent history Review of Systems Constitutional: Reports: Anorexia, Weakness, Weight Change, Fatigue Eyes: Denies: Blurred vision HEENT: Denies: Head Aches, Sinus Congestion, Sinus Drainage Cardiovascular: Reports: Claudication - Right lower extremity. Denies: Chest Pain, Light Headedness, Palpitations Respiratory: Reports: Cough, Shortness of Breath, Shortness of breath upon exertion, Sputum production Gastrointestinal: Denies: Abdominal Pain, Nausea, Vomiting Genitourinary: Denies: Dysuria Musculoskeletal: Reports: Leg Pain - Right lower extremity Skin: Denies: Rash, Wounds Neurological: Reports: Balance problems, Change in Speech, Incoordination. Denies: Difficulty swallowing, Tremor, Seizures Psychiatric: Reports: Anxiety Hematologic/ Lymphatic: Reports: Easy Bruising, Easy Bleeding. Denies: Hx of blood clot, Hx of blood transfusion - Physical Exam General: Alert, Oriented x3, Cooperative HEENT: Atraumatic, PERRLA, EOMI, Normocephalic Neck: No JVD, Carotid Bruit, Left Lungs: Diminished - bilateral lower lobes Cardiovascular: Regular rate, No murmurs Abdomen: Bowel Sounds Present, Soft, Non Tender, Non-Distended, Hernia - Large right inguinal hernia with bowel involvement Extremities: Diminished Peripheral Pulses Skin: Incision - Right groin/upper thigh nicely healed. Solid golf-ball sized lump noted medial to the incision Musculoskeletal: Cachexia, Muscle Wasting Psych/Mental Status: Anxious Vital Signs Temp Pulse Resp BP Pulse Ox 97.6 F L 88 16 132/70 H 96 09/18/17 06:00 09/18/17 08:00 09/18/17 08:00 09/18/17 06:00 09/18/17 06:00 Oxygen Flow Rate 2 Oxygen Delivery Method Room Air Weight: 109 lb 2.061 oz Body Mass Index (BMI) 17.1 Intake and Output for Last 24 Hours 09/16/17 09/17/17 09/18/17 23:59 23:59 23:59 Intake Total 3112 / 3112 Output Total 200 / 200 Balance 2912 / 2912 Microbiology Past 72 Hours 09/16/17 19:00 Influenza Types A,B Direct FA (JAYDE) - Final Mucosa - Nasopharyngeal Laboratory Tests Past 24 Hrs 09/17/17 09/18/17 06:12 06:15 Phosphorus 3.2 Magnesium 2.1 Triglycerides 60 Cholesterol 155 LDL Cholesterol 65 VLDL Cholesterol 12 HDL Cholesterol 78 TSH 1.58 Free T4 0.98 Assessment/Plan I have been consulted in conjunction with Dr. Hudson. Impression: Left carotid bruit. Significant peripheral vascular disease. Alcoholism. Tobacco abuse. COPD. Multiple stroke history. Right inguinal hernia with bowel involvement, asymptomatic. Plan: Patient was discussed with Dr. Hudson. Recommend carotid duplex testing. Since patient as had previous chemotherapy and radiation to the head and neck for throat/tongue cancer, patient is more than likely not a candidate for a carotid endarterectomy, however stenting of the carotid artery may be indicated. Patient is a high risk surgical candidate with multiple comorbidities and may likely benefit from a tertiary referral. Further recommendations will be given following results of the carotid duplex. Patient and his significant other have had the opportunity to ask and have questions answered. Patient verbally understands and agrees to proceed with the plan. Thank you for allowing to participate in this patient' s care. My recommendations will be available via electronic medical records. Code Visit Office Visits / Consults: [id number] IP Consult L4
[2017-09-18] MEDS: Fluticasone 0.05% 1 SPRAY NASAL.SRY NASAL (09:30)
[2017-09-18] MEDS: amLODIPine 10 MG Tablet PO (09:31)
[2017-09-18] MEDS: Multivitamins,Ther W-Minerals Tablet 1 TABLET PO (10:16)
[2017-09-18] MEDS: Ipratropium/Albuterol Sulfate 3 ML AMPUL.NEB INHALATION ×2 (11:22→20:01)
--- NOTE | 2017-09-18 12:43 | NURSING ---
Significant other calls out to request anxiety medication for patient.
[2017-09-18] MEDS: LORazepam 1 MG Tablet 2 MG PO (12:46)
[2017-09-18] MEDS: Mag Hydrox/Al Hydrox/Simeth 30 ML UDC PO (13:19)
--- NOTE | 2017-09-18 14:03 | CASEMGMT ---
SW went to room to talk with patient about alcohol consumption. Patient's significant other was present. Patient was okay talking in front of her. When asked about his alcohol consumption he said he only drinks 3 beers a day and he does not feel that this a problem. He denies legal issues. However, his friend spoke up and said a long time ago when he was younger he did. He denies any relationship issues. He denies anyone has told him he needs to stop or cut back on his alcohol. His friend said alcohol is not his problem it is all the coffee he drinks. At this time both feel patient is fine and decline any resources. Lady DAN [employer]ERRY [employer]
--- NOTE | 2017-09-18 14:27 | MRI_ITS ---
STUDY: MRI LUMBAR SPINE WITH CONTRAST REASON FOR EXAM: Male, 62 years old. Numbness in the legs and unsteady gait. TECHNIQUE: Standardized fat and water weighted pulse sequences were obtained in the sagittal and axial following I.V. administration of 5 ml of Gadavist contrast material. COMPARISON: None FINDINGS: T12-L1: Normal endplates. Normal disc height, and morphology. Normal bilateral facet joints. Normal central canal and bilateral lateral recesses. Normal lumbar lordosis. There is no substantial scoliosis. Normal conus medullaris that terminates at the L1 level. L1-2: Normal endplates. Normal disc height, and morphology. Normal bilateral facet joints. Normal central canal and bilateral lateral recesses. . L2-3: Normal endplates. Normal disc height, and morphology. Normal bilateral facet joints. Normal central canal and bilateral lateral recesses. Neural foramina are narrowed. L3-4: There is a annular disc bulge and osteophyte complex. There is mild degenerative arthropathy of facet joints. Neural foramina are bilaterally narrowed. There is no evidence for significant canal stenosis. L4-5: There is a broad central disc protrusion. There is mild degenerative arthropathy of facet joints. There is mild central acquired canal stenosis. Neural foramina are narrowed. L5-S1: There is a disc bulge and osteophyte complex. There is moderate degenerative arthropathy of facet joints. Neural foramina are patent. Normal visualized sacral ala. Normal visualized paraspinous soft tissue structures. There is apparent abnormal heterogeneous enhancement of the T10 and T11 vertebral bodies. This may be artifactual related to incomplete fat saturation. Comparison with the recent MRI of thoracic spine does not reveal comparable abnormality. MRI/Spine Lumbar WITH Contrast IMPRESSION: 1. Only enhanced images are available for interpretation. 2. There is no definite MR evidence for leptomeningeal enhancement. 3. There does appear to be heterogeneous enhancement of the lumbar vertebral bodies in general which may be the result of reactivated hematopoietic marrow. Metastatic disease to the lumbar vertebral bodies cannot be excluded. Electronically Signed: Padmini Castillo MD at 18:42 EST , Service support ,
--- NOTE | 2017-09-18 14:27 | MRI_ITS ---
STUDY: MRI THORACIC SPINE WITH CONTRAST REASON FOR EXAM: Male, 62 years old. Numbness in the legs, unsteady gait. TECHNIQUE: 5 ml of Gadavist was administered intravenously for the contrast portion of the examination. Sagittal and axial T1 images of the thoracic spine were obtained. Multiple images are limited by patient motion. COMPARISON: None. FINDINGS: There is an increased kyphosis of the thoracic spine. There is no substantial scoliosis. T1-2, T2-3, T3-4, T4-5, T5-6, T6-7, T7-8, T8-9, T9-10, T10-11, T11-12: There is moderate compression of the T7 vertebral body with estimated amount compression of at least 70%. This is wedge-shaped in its shape. The remaining thoracic vertebral bodies have normal height. There is abnormal signal within the posterior superior aspect of T10 that may represent hemangioma. Intervertebral discs have generally normal height. Almost all the axial images are nondiagnostic secondary to patient motion. Normal visualized thoracic cord. Normal conus medullaris that terminates at the T12-L1 level. The soft tissue structures are unremarkable. There is no enhancing abnormality. MRI/Spine Thoracic WITH Contrast IMPRESSION: 1. Technically limited MR due to patient motion. 2. Only enhanced images are available for review. 3. There is no definite leptomeningeal abnormal enhancement. 4. There is probably old moderate compression fracture of T7. Electronically Signed: Padmini Castillo MD at 18:34 EST , Service support ,
--- NOTE | 2017-09-18 14:27 | MRI_ITS ---
STUDY: MRI CERVICAL SPINE WITH AND WITHOUT CONTRAST REASON FOR EXAM: Male, 62 years old. Weakness and numbness in legs. TECHNIQUE: Standardized fat and water weighted pulse sequences were obtained in the sagittal and axial following I.V. administration of 5 ml of Gadavist contrast material. Multiple images are limited by patient motion. COMPARISON: None FINDINGS: Normal foramen magnum and brainstem-cervical cord junction. Normal craniovertebral junction. Normal anterior atlantoaxial articulation. Normal odontoid process. Normal cervical lordosis. Normal vertebral bodies and posterior osseous elements. C2-3: There is a disc bulge and osteophyte complex. Neural foramina are mildly narrowed without evidence for nerve impingement. There is uncovertebral and facet joint arthropathy. C3-4: There is a mild disc bulge and osteophyte complex. There appears to be severe left-sided neural foraminal narrowing with questionable nerve impingement. The right neural foramen is mildly narrowed. There is no significant central acquired canal stenosis. C4-5: There is narrowing of the disc. There is a disc bulge and osteophyte complex. There is severe bilateral neural foraminal narrowing with uncovertebral and facet joint arthropathy. C5-6: Appears be decreased height of the C6 vertebral body. This is consistent with mild compression fracture. There is narrowing of the disc. Axial images are nondiagnostic. C6-7: There is narrowing of the disc. The axial images are nondiagnostic. C7-T1: Normal endplates. Normal disc height, signal and morphology. Normal central canal and intervertebral neural foramina. Normal cervical cord. There is no demonstrated cervical cord syrinx cavity. There is mild compression of the T1, and T3 vertebral bodies probably related to mild old compression fractures. Normal visualized soft tissue structures. MRI/Spine Cervical W/WO Contrast IMPRESSION: 1. Technically limited MRI due to patient motion. 2. Multilevel degenerative disc disease and degenerative arthropathy of the cervical spine. 3. There is no definite abnormal leptomeningeal enhancement. Electronically Signed: Padmini Castillo MD at 18:51 EST , Service support ,
--- NOTE | 2017-09-18 15:00 | NURSING ---
1400 meds deferred due to lethargy.
--- NOTE | 2017-09-18 15:19 | PCM.CONS.GEN ---
Problem List (1) H/O: stroke Status: Chronic Reason for Consult Date of Consultation: 09/18/17 Reason for Consultation: H/O Stroke, repeated falls, balance issues History of Present Illness: The patient is a 62 year old M with PMH HTN, HLD, H/O Stroke, severe PVD s/p infrarenal stent and bilateral iliac artery stenting, right common femoral/profunda thromboembolectomy and superficial femoral endarterectomy, ETOH abuse, tobacco abuse, COPD, H/O throat cancer admitted with COPD exacerbation. Patient had seen me in my office as outpatient on September 05, 2017 for frequent falls. I had requested MRI brain during that visit, done during this admission shows extensive subcortical white matter leukoencephalopathy s/o of possible Binswanger's disease/Vascular dementia. MRA head/neck done during this admission showed right ICA 73% stenosis and Left ICA > 90% stenosis. MRI C spine/T spine and L spine was also recommended during the office visit due to frequent falls, and examination showing hyperreflexia with mild right LE weakness during the office visit. MRI T spine w/o contrast done on 09/11/17 reported to show chronic T7 fracture and MRI L spine w/o contrast done on 09/11/17 reported to show moderate left L5-S1 foraminal stenosis. Dr Hudson has seen him as inpatient consult this time and suggested possible carotid stenting for his severe carotid stenosis. Patient continues to be poor historian, denies any frequent falls at present, denies any new onset focal motor weakness, sensory loss, visual disturbances or BARBER. [] Past Medical History Past Medical History (Chronic Problems): Chronic Problems COPD (chronic obstructive pulmonary disease) with emphysema (Chronic) Ischemic stroke (Chronic) Recent about 2-3 weeks ago Hypertension (Chronic) Dyslipidemia (Chronic) Throat cancer (Chronic) Peripheral arterial disease (Chronic) Right inguinal hernia (Chronic) H/O: stroke (Chronic) Allergies No Known Allergies Allergy (Verified 09/26/15 18:58) Home Medications: Ambulatory Orders Medication Instructions Recorded Albuterol IH (ProAir) [Proair Hfa 2 puff INHALATION Q4H PRN PRN 09/26/15 (SP)Vent Pts] Amlodipine [Norvasc] 10 mg PO DAILY 09/26/15 Atorvastatin Calcium [Lipitor] 40 mg PO QHS 09/26/15 Fluticasone Propionate [Flonase 1 spray NS DAILY 09/26/15 Allergy Relief] Lorazepam [Ativan] 0.5 mg PO TID PRN PRN 09/26/15 Aspirin [Aspirin, Baby] 81 mg PO DAILY@0800 09/16/17 Budesonide/Formoterol 160/4.5 2 puff INHALATION BID 09/16/17 [Symbicort 160/4.5 Mcg Inhaler (SP)] Lives: Spouse/ Significant Other Smoking Status: Current every day smoker Alcohol: Heavy - About 3 beers daily since teenager Drugs: None - *Family History Paternal History Items: No pertinent history Review of Systems Constitutional: Reports: - - complete ROS negative except as documented in HPI Patient Problems: Active and Suspected Problems Acute respiratory failure with hypoxia (Acute) COPD (chronic obstructive pulmonary disease) with acute bronchitis (Acute) - Physical Exam General: Alert, Oriented x3, Cooperative HEENT: Atraumatic, PERRLA, EOMI, Normocephalic Neck: Supple, No JVD, Negative Carotid Bruits Lungs: Clear to auscultation, Normal air movement Cardiovascular: Regular rate Abdomen: Bowel Sounds Present, Soft, Non Tender Extremities: No edema, Capillary Refill Less than 3 Seconds Skin: No rashes, No breakdown, - - right groin lump and small right thigh swelling. Musculoskeletal: No Tenderness to Palpation of Joints or Extremities Neurological: Cranial nerves II-XII grossly intact, - - consious, alert, AoA x3, CN 2-12 grossly intact, power 5/5 both UE, +4/5 Right LE and 5/5 Left LE, Reflexes +++ B/L B/S/T/K/A, no clonus, moderate sensory loss to light touch right leg, gait deferred. Psych/Mental Status: Normal Affect, Appropriate Vital Signs Temp Pulse Resp BP Pulse Ox 96.8 F L 116 H 16 134/95 H 94 09/18/17 13:28 09/18/17 13:28 09/18/17 13:28 09/18/17 13:28 09/18/17 13:28 Oxygen Flow Rate 2 Oxygen Delivery Method Room Air Weight: 49.5 kg Body Mass Index (BMI) 17.1 Intake and Output for Last 24 Hours 01/29/18 01/30/18 01/31/18 23:59 23:59 23:59 Intake Total 3112 / 3112 506 / 506 Output Total 200 / 200 Balance 2912 / 2912 506 / 506 Microbiology Past 72 Hours 09/17/17 13:35 Respiratory Panel (PCR) - Final Mucosa - Nasopharyngeal 09/16/17 19:00 Influenza Types A,B Direct FA (JAYDE) - Final Mucosa - Nasopharyngeal Laboratory Tests Past 24 Hrs 09/18/17 06:15 Triglycerides 60 Cholesterol 155 LDL Cholesterol 65 VLDL Cholesterol 12 HDL Cholesterol 78 Assessment/Plan Active and Suspected Problems Acute respiratory failure with hypoxia (Acute) COPD (chronic obstructive pulmonary disease) with acute bronchitis (Acute) The patient is a 62 year old M with PMH HTN, HLD, H/O Stroke, severe PVD s/p infrarenal stent and bilateral iliac artery stenting, right common femoral/profunda thromboembolectomy and superficial femoral endarterectomy, ETOH abuse, tobacco abuse, COPD, H/O throat cancer admitted with COPD exacerbation. Patient had seen me in my office as outpatient on September 05, 2017 for frequent falls. I had requested MRI brain during that visit, done during this admission shows extensive subcortical white matter leukoencephalopathy s/o of possible Binswanger's disease/Vascular dementia. MRA head/neck done during this admission showed right ICA 73% stenosis and Left ICA > 90% stenosis. MRI C spine/T spine and L spine was also recommended during the office visit due to frequent falls, and examination showing hyperreflexia with mild right LE weakness during the office visit. MRI T spine w/o contrast done on 09/11/17 reported to show chronic T7 fracture and MRI L spine w/o contrast done on 09/11/17 reported to show moderate left L5-S1 foraminal stenosis. Dr Hudson has seen him as inpatient consult this time and suggested possible carotid stenting for his severe carotid stenosis. Patient continues to be poor historian, denies any frequent falls at present, denies any new onset focal motor weakness, sensory loss, visual disturbances or BARBER. Impression H/O Stroke/TIA MRI brain-severe subcortical white matter leukoencephalopathy- ? Binswanger's disease Carotid stenosis with right ICA 73% stenosis and Left ICA >90% per MRA head/neck report Plan -Continue ASA, increase to Lipitor 80 mg PO q hs -MRI brain images reviewed, MRA head/neck reviewed -May need outpatient Neurocognitive evaluation and treatment with Namenda for possible Binswanger's disease/Vascular Dementia if symptomatic. -Recommend MRI C spine w/w/o contrast- for repeated falls as recommended as outpatient. -MRI T spine and L spine reviewed -Recommend outpatient EMG/NCS both LE to evaluate for alcoholic neuropathy -Recommend Vascular surgery or Neurointervention consult for carotid stenosis, for further evaluation and management. -Recommend vascular surgery for small right thigh lump (?seroma) -Recommend General surgery consult for right groin swelling (?hernia) -GI/DVT prophylaxis -Recommend PT/OT -Fall precautions. -Follow up with Neurology as outpatient in 4-6 weeks -Thank you for allowing us to participate in patients care and management I spent 60 minutes taking history, doing physical examination, reviewing medical records, coordinating care and counseling the patient.
--- NOTE | 2017-09-18 15:26 | CON.PCM_ITS ---
Problem List (1) H/O: stroke Status: Chronic Reason for Consult Date of Consultation: 09/18/17 Reason for Consultation: H/O Stroke, repeated falls, balance issues History of Present Illness: The patient is a 62 year old M with PMH HTN, HLD, H/O Stroke, severe PVD s/p infrarenal stent and bilateral iliac artery stenting, right common femoral/ profunda thromboembolectomy and superficial femoral endarterectomy, ETOH abuse, tobacco abuse, COPD, H/O throat cancer admitted with COPD exacerbation. Patient had seen me in my office as outpatient on September 05, 2017 for frequent falls. I had requested MRI brain during that visit, done during this admission shows extensive subcortical white matter leukoencephalopathy s/o of possible Binswanger's disease/Vascular dementia. MRA head/neck done during this admission showed right ICA 73% stenosis and Left ICA > 90% stenosis. MRI C spine /T spine and L spine was also recommended during the office visit due to frequent falls, and examination showing hyperreflexia with mild right LE weakness during the office visit. MRI T spine w/o contrast done on 09/11/17 reported to show chronic T7 fracture and MRI L spine w/o contrast done on reported to show moderate left L5-S1 foraminal stenosis. Dr Hudson has seen him as inpatient consult this time and suggested possible carotid stenting for his severe carotid stenosis. Patient continues to be poor historian, denies any frequent falls at present, denies any new onset focal motor weakness, sensory loss, visual disturbances or BARBER. [] Past Medical History Past Medical History (Chronic Problems): Chronic Problems COPD (chronic obstructive pulmonary disease) with emphysema (Chronic) Ischemic stroke (Chronic) Recent about 2-3 weeks ago Hypertension (Chronic) Dyslipidemia (Chronic) Throat cancer (Chronic) Peripheral arterial disease (Chronic) Right inguinal hernia (Chronic) H/O: stroke (Chronic) Allergies No Known Allergies Allergy (Verified 09/26/15 18:58) Home Medications: Ambulatory Orders Medication Instructions Recorded Albuterol IH (ProAir) [Proair Hfa 2 puff INHALATION Q4H PRN PRN 09/26/15 (SP)Vent Pts] Amlodipine [Norvasc] 10 mg PO DAILY 09/26/15 Atorvastatin Calcium [Lipitor] 40 mg PO QHS 09/26/15 Fluticasone Propionate [Flonase 1 spray NS DAILY 09/26/15 Allergy Relief] Lorazepam [Ativan] 0.5 mg PO TID PRN PRN 09/26/15 Aspirin [Aspirin, Baby] 81 mg PO DAILY@0800 09/16/17 Budesonide/Formoterol 160/4.5 2 puff INHALATION BID 09/16/17 [Symbicort 160/4.5 Mcg Inhaler (SP)] Lives: Spouse/ Significant Other Smoking Status: Current every day smoker Alcohol: Heavy - About 3 beers daily since teenager Drugs: None - *Family History Paternal History Items: No pertinent history Review of Systems Constitutional: Reports: - - complete ROS negative except as documented in HPI Patient Problems: Active and Suspected Problems Acute respiratory failure with hypoxia (Acute) COPD (chronic obstructive pulmonary disease) with acute bronchitis (Acute) - Physical Exam General: Alert, Oriented x3, Cooperative HEENT: Atraumatic, PERRLA, EOMI, Normocephalic Neck: Supple, No JVD, Negative Carotid Bruits Lungs: Clear to auscultation, Normal air movement Cardiovascular: Regular rate Abdomen: Bowel Sounds Present, Soft, Non Tender Extremities: No edema, Capillary Refill Less than 3 Seconds Skin: No rashes, No breakdown, - - right groin lump and small right thigh swelling. Musculoskeletal: No Tenderness to Palpation of Joints or Extremities Neurological: Cranial nerves II-XII grossly intact, - - consious, alert, AoA x3 , CN 2-12 grossly intact, power 5/5 both UE, +4/5 Right LE and 5/5 Left LE, Reflexes +++ B/L B/S/T/K/A, no clonus, moderate sensory loss to light touch right leg, gait deferred. Psych/Mental Status: Normal Affect, Appropriate Vital Signs Temp Pulse Resp BP Pulse Ox 96.8 F L 116 H 16 134/95 H 94 09/18/17 13:28 09/18/17 13:28 09/18/17 13:28 09/18/17 13:28 09/18/17 13:28 Oxygen Flow Rate 2 Oxygen Delivery Method Room Air Weight: 49.5 kg Body Mass Index (BMI) 17.1 Intake and Output for Last 24 Hours 01/29/18 01/30/18 01/31/18 23:59 23:59 23:59 Intake Total 3112 / 3112 506 / 506 Output Total 200 / 200 Balance 2912 / 2912 506 / 506 Microbiology Past 72 Hours 09/17/17 13:35 Respiratory Panel (PCR) - Final Mucosa - Nasopharyngeal 09/16/17 19:00 Influenza Types A,B Direct FA (JAYDE) - Final Mucosa - Nasopharyngeal Laboratory Tests Past 24 Hrs 09/18/17 06:15 Triglycerides 60 Cholesterol 155 LDL Cholesterol 65 VLDL Cholesterol 12 HDL Cholesterol 78 Assessment/Plan Active and Suspected Problems Acute respiratory failure with hypoxia (Acute) COPD (chronic obstructive pulmonary disease) with acute bronchitis (Acute) The patient is a 62 year old M with PMH HTN, HLD, H/O Stroke, severe PVD s/p infrarenal stent and bilateral iliac artery stenting, right common femoral/ profunda thromboembolectomy and superficial femoral endarterectomy, ETOH abuse, tobacco abuse, COPD, H/O throat cancer admitted with COPD exacerbation. Patient had seen me in my office as outpatient on September 05, 2017 for frequent falls. I had requested MRI brain during that visit, done during this admission shows extensive subcortical white matter leukoencephalopathy s/o of possible Binswanger's disease/Vascular dementia. MRA head/neck done during this admission showed right ICA 73% stenosis and Left ICA > 90% stenosis. MRI C spine /T spine and L spine was also recommended during the office visit due to frequent falls, and examination showing hyperreflexia with mild right LE weakness during the office visit. MRI T spine w/o contrast done on 09/11/17 reported to show chronic T7 fracture and MRI L spine w/o contrast done on reported to show moderate left L5-S1 foraminal stenosis. Dr Hudson has seen him as inpatient consult this time and suggested possible carotid stenting for his severe carotid stenosis. Patient continues to be poor historian, denies any frequent falls at present, denies any new onset focal motor weakness, sensory loss, visual disturbances or BARBER. Impression H/O Stroke/TIA MRI brain-severe subcortical white matter leukoencephalopathy- ? Binswanger's disease Carotid stenosis with right ICA 73% stenosis and Left ICA >90% per MRA head/ neck report Plan -Continue ASA, increase to Lipitor 80 mg PO q hs -MRI brain images reviewed, MRA head/neck reviewed -May need outpatient Neurocognitive evaluation and treatment with Namenda for possible Binswanger's disease/Vascular Dementia if symptomatic. -Recommend MRI C spine w/w/o contrast- for repeated falls as recommended as outpatient. -MRI T spine and L spine reviewed -Recommend outpatient EMG/NCS both LE to evaluate for alcoholic neuropathy -Recommend Vascular surgery or Neurointervention consult for carotid stenosis, for further evaluation and management. -Recommend vascular surgery for small right thigh lump (?seroma) -Recommend General surgery consult for right groin swelling (?hernia) -GI/DVT prophylaxis -Recommend PT/OT -Fall precautions. -Follow up with Neurology as outpatient in 4-6 weeks -Thank you for allowing us to participate in patients care and management I spent 60 minutes taking history, doing physical examination, reviewing medical records, coordinating care and counseling the patient.
--- NOTE | 2017-09-18 16:19 | DCINST_ITS ---
- Discharge Diagnoses Current Active Problems: Current Active and Chronic Problems COPD (chronic obstructive pulmonary disease) with emphysema (Chronic) Acute respiratory failure with hypoxia (Acute) Ischemic stroke (Chronic) Recent about 2-3 weeks ago Hypertension (Chronic) Dyslipidemia (Chronic) Throat cancer (Chronic) Peripheral arterial disease (Chronic) Right inguinal hernia (Chronic) COPD (chronic obstructive pulmonary disease) with acute bronchitis (Acute) H/O: stroke (Chronic) (1) Acute Hypoxic Respiratory Failure secondary to Acute on chronic COPD exacerbation (2) RULED OUT RECENT ACUTE CVA, Noted prior remote CVA w/ BL Carotid Stenosis (3) EtOH Abuse (4) Tobacco Abuse (5) PAD (6) Hypertension (7) Hyperlipidemia (8) Throat and Tongue CA (9) Severe Protein-Calorie Malnutrition You will use the following diet at home:: Cardiac Your food should be the consistency of: Regular Your liquids should be the consistency of: Regular/Thin Discharge Activity: Return to Normal Activity May resume sexual activity in: No Restrictions Weight Bearing Status: Weight bearing as tolerated Call your doctor if you observe: Fever of 101 or Higher, Inability to urinate, Inability to have a bowel movement, Shortness of breath, Dizziness, Fainting spells, Chest pain, Uncontrolled pain, - - Any neurological symptoms, including focal weakness, numbness or tingling, vision changes, facial droop among others. Instructions: Carotid Artery Problems: Blockage, Carotid Artery Problems: Stroke, Carotid Artery Problems: Surgery for TIAs, Preparing for Carotid Artery Stenting, Why Do You Smoke?, Planning to Quit Smoking, Getting Support for Quitting Smoking, Coping with Smoking Withdrawal, What is COPD?, Chronic Lung Disease: Preventing Lung Infections, Caring for Your Inhaler, Using an Inhaler Without a Spacer, Understanding Dementia, Understanding Alcoholism Additional Instructions: RECOMMENDATIONS AND FUTURE PLANS UPON DISCHARGE INCLUDE : -Medication changes: Continue aspirin 81 mg daily in addition to increased Lipitor 80 mg each night. -Given recent MRI Brain findings, you may need outpatient Neurocognitive evaluation and treatment with Namenda for possible Binswanger's disease/Vascular Dementia if symptomatic. -During admission, Neurology ordered MRI C spine, T spine and Lumbar spine secondary to repeated falls which were reviewed per Neurology prior to discharge with radiology read pending which may be reviewed with Neurology follow-up. -Neurology will arrange outpatient EMG/NCS to both lower extremities to evaluate for alcoholic neuropathy. -Please keep your upcoming Vascular Surgery evaluation in ~ 1 week for evaluation of both your lower extremity and also your recently diagnosed remarkable carotid stenosis. -Recommend General surgery evaluation for your chronic R groin swelling, ? inguinal hernia in addition which may be set-up per your primary care physician. Allergies/Adverse Reactions: Allergies No Known Allergies Allergy (Verified 09/26/15 18:58) Medications to take at Discharge Fluticasone Propionate [Flonase Allergy Relief] 1 spray NS DAILY 09/26/15 Lorazepam [Ativan] 0.5 mg PO TID PRN PRN 09/26/15 Aspirin [Aspirin, Baby] 81 mg PO DAILY@0800 09/16/17 Budesonide/Formoterol 160/4.5 [Symbicort 160/4.5 Mcg Inhaler (SP)] 2 puff INHALATION BID 09/16/17 Albuterol IH (ProAir) [Proair Hfa] 1 - 2 puff INHALATION Q2H PRN PRN #1 inhaler 09/18/17 Amlodipine [Norvasc] 10 mg PO DAILY #30 tab 09/18/17 Atorvastatin Calcium 80 mg PO QHS #30 tab 09/18/17 Folic Acid 1 mg PO DAILY@0800 #30 tab 09/18/17 Multivitamins,Ther W-Minerals [Multivitamin With Minerals] 1 tab PO DAILYCM #30 tab 09/18/17 Nicotine [Nicoderm Cq] 21 mg TRANSDERM. DAILY #14 patch 09/18/17 Prednisone 10 mg PO UD #30 tab 09/18/17 Thiamine Hydrochloride [Vitamin B1] 100 mg PO BIDCM #60 tab 09/18/17 The following prescriptions were given: Albuterol IH (ProAir) [Proair Hfa] 1 - 2 puff INHALATION Q2H PRN PRN #1 inhaler PRN Reason: Sob &/Or Wheezing Amlodipine [Norvasc] 10 mg PO DAILY #30 tab Atorvastatin Calcium 80 mg PO QHS #30 tab Folic Acid 1 mg PO DAILY@0800 #30 tab Multivitamins,Ther W-Minerals [Multivitamin With Minerals] 1 tab PO DAILYCM #30 tab Nicotine [Nicoderm Cq] 21 mg TRANSDERM. DAILY #14 patch Prednisone 10 mg PO UD #30 tab Thiamine Hydrochloride [Vitamin B1] 100 mg PO BIDCM #60 tab Primary Care Physician: Arpit Diaz MD [Primary Care Provider] - Please follow up with your Primary Care Physician in: Follow-up within 3-5 days to review admission. Please Follow Up With: Liliya Corbin When: Please follow-up with your Vascular Surgeon within 1 week. Please Follow Up With: Gianni Riley MD When: Please follow-up within 4 weeks. Proposed Discharge Date: 09/18/17
--- NOTE | 2017-09-18 16:22 | PCM.DC.SUM ---
Discharge Date and Diagnosis - Problem List Patient Problems: Active and Suspected Problems Acute respiratory failure with hypoxia (Acute) COPD (chronic obstructive pulmonary disease) with acute bronchitis (Acute) Date of Admission: 09/16/17 Date of Discharge: 09/18/17 - Primary Discharge Diagnosis Active and Suspected Problems (1) Acute Hypoxic Respiratory Failure secondary to Acute on chronic COPD exacerbation (2) RULED OUT RECENT ACUTE CVA, Noted prior remote CVA w/ BL Carotid Stenosis (3) EtOH Abuse (4) Tobacco Abuse (5) PAD (6) Hypertension (7) Hyperlipidemia (8) Throat and Tongue CA (9) Severe Protein-Calorie Malnutrition - Secondary Discharge Diagnosis Chronic Problems COPD (chronic obstructive pulmonary disease) with emphysema (Chronic) Ischemic stroke (Chronic) Recent about 2-3 weeks ago Hypertension (Chronic) Dyslipidemia (Chronic) Throat cancer (Chronic) Peripheral arterial disease (Chronic) Right inguinal hernia (Chronic) H/O: stroke (Chronic) Hospital Course and Treatment Imaging Results: 09/18/17 14:27 Spine Cervical W/WO Contrast [MRI] Urgent Spine Lumbar WITH Contrast [MRI] Urgent Spine Thoracic WITH Contrast [MRI] Urgent Neurology Dr. Riley Vascular Surgery Dr. Hudson Procedures: 2-D Echocardiogram, EKG Summary of Care Provided: The patient is a 62 y/o M w/ PMHx: CVA, COPD, HTN, HLD, Throat CA, PAD, EtOH Abuse who presented to the [facility] ED on 09/16/17 with history of ongoing, progressively worsening dyspnea, congestion x 3 days. In the ED evaluation with elevated RR, accessory muscle usage and reported hypoxia. Patient admitted w/ Acute Hypoxic Respiratory Failure secondary to Acute on chronic COPD exacerbation w/ CXR w/ chronic changes, maintained on oxygen with wean as tolerated to room air, continue ATC duonebs, PRN albuterol, IV methylprednisolone with prednisone transition with taper upon discharge, HOB, IS parameters. Also given recent history of unclear CVA timeline as already following w/ Neurology outpatient, patient w/ residual aphasia, completion work-up obtained including initially MRI Brain w/ no acute or evolving ischemic infarct, extensive confluent hyperintense signal in the deep white matter tracts consistent with severe chronic white matter ischemic changes, remote small periventricular lacunar infarctions, multiple remote lacunar infarctions of the bilateral thalami, chronic white matter ischemic changes of the daly with small remote lacunar infarctions, extensive chronic sinusitis bilateral maxillary sinus regions, MRA head w/ ectatic elongation and tortuosity of the bilateral cavernous carotid arteries without hemodynamically significant stenosis, incomplete wrangell of [place] with absence of the left posterior Indicating artery and MRA neck w/ significant patient motion artifact, atherosclerotic tortuosity and elongation of the bilateral common carotid arteries, 73% stenosis of the right internal carotid artery, greater than 96% stenosis of the origin of the left internal carotid artery, ECHO w/ LV systolic function, 65%, trivial MV insufficiency, trivial TV insufficiency, RVSP 22 mmHg, transmitral Doppler flow suggestive of impaired relaxation LV, Mag, Phos, TSH normal. FLP not marked appearing. Carotid US also obtained and patient evaluated by Dr. Hudson with recommendation for evaluation per his Vascular Surgery for consideration of carotid stenting which he does not perform. Patient and family verified follow-up with his Vascular Surgeon in < 1 week. Neurology was also consulted during admission to assure no further evaluation desired given patient notable findings and poor follow-up history with medication changes including increased Lipitor to 80 mg each night, given recent MRI brain findings consideration of outpatient Neurocognitive evaluation and treatment with Namenda for possible Binswanger's disease/Vascular Dementia if symptomatic, MRI C spine, T spine and Lumbar spine secondary to repeated falls which were reviewed per Neurology with final radiology read pending upon discharge which was amenable to Neurology with planned review of imaging at outpatient follow-up, outpatient EMG/NCS to both lower extremities to evaluate for alcoholic neuropathy. During admission safe sobriety encouraged and patient continued on CIWA protocol, MVI, thiamine and folic acid which was continued upon discharge. Mag, phos normal. Encouraged tobacco cessation, inpatient consultation per RT, NR rx given upon discharge. Patient discharged to home in stable pulmonary condition, improved from initial presentation with steroid taper and continuation of home inhaler w/ refill on albuterol PRN with PCP follow-up, Vascular Surgery follow-up and Neurology follow-up recommended. Discharge Activity: Return to Normal Activity May resume sexual activity in: No Restrictions Weight Bearing Status: Weight bearing as tolerated Call your doctor if you observe: Fever of 101 or Higher, Inability to urinate, Inability to have a bowel movement, Shortness of breath, Dizziness, Fainting spells, Chest pain, Uncontrolled pain, - - Any neurological symptoms, including focal weakness, numbness or tingling, vision changes, facial droop among others. Home Medications: Medications to take at Discharge Fluticasone Propionate [Flonase Allergy Relief] 1 spray NS DAILY 09/26/15 Lorazepam [Ativan] 0.5 mg PO TID PRN PRN 09/26/15 Aspirin [Aspirin, Baby] 81 mg PO DAILY@0800 09/16/17 Budesonide/Formoterol 160/4.5 [Symbicort 160/4.5 Mcg Inhaler (SP)] 2 puff INHALATION BID 09/16/17 Albuterol IH (ProAir) [Proair Hfa] 1 - 2 puff INHALATION Q2H PRN PRN #1 inhaler 09/18/17 Amlodipine [Norvasc] 10 mg PO DAILY #30 tab 09/18/17 Atorvastatin Calcium 80 mg PO QHS #30 tab 09/18/17 Folic Acid 1 mg PO DAILY@0800 #30 tab 09/18/17 Multivitamins,Ther W-Minerals [Multivitamin With Minerals] 1 tab PO DAILYCM #30 tab 09/18/17 Nicotine [Nicoderm Cq] 21 mg TRANSDERM. DAILY #14 patch 09/18/17 Prednisone 10 mg PO UD #30 tab 09/18/17 Thiamine Hydrochloride [Vitamin B1] 100 mg PO BIDCM #60 tab 09/18/17 Following Prescrptions Were Given to Patient: Albuterol IH (ProAir) [Proair Hfa] 1 - 2 puff INHALATION Q2H PRN PRN #1 inhaler PRN Reason: Sob &/Or Wheezing Amlodipine [Norvasc] 10 mg PO DAILY #30 tab Atorvastatin Calcium 80 mg PO QHS #30 tab Folic Acid 1 mg PO DAILY@0800 #30 tab Multivitamins,Ther W-Minerals [Multivitamin With Minerals] 1 tab PO DAILYCM #30 tab Nicotine [Nicoderm Cq] 21 mg TRANSDERM. DAILY #14 patch Prednisone 10 mg PO UD #30 tab Thiamine Hydrochloride [Vitamin B1] 100 mg PO BIDCM #60 tab Primary Care Physician: Arpit Diaz MD [Primary Care Provider] - Please follow up with your Primary Care Physician in: Follow-up within 3-5 days to review admission. Please Follow Up With: Liliya Corbin When: Please follow-up with your Vascular Surgeon within 1 week. Please Follow Up With: Gianni Riley MD When: Please follow-up within 4 weeks. Patient Instructions: What is COPD?, Chronic Lung Disease: Preventing Lung Infections, Caring for Your Inhaler, Using an Inhaler Without a Spacer, Carotid Artery Problems: Blockage, Carotid Artery Problems: Stroke, Carotid Artery Problems: Surgery for TIAs, Understanding Alcoholism, Why Do You Smoke?, Planning to Quit Smoking, Getting Support for Quitting Smoking, Coping with Smoking Withdrawal, Understanding Dementia, Preparing for Carotid Artery Stenting Disposition: Home Minutes spent on discharge:: 35 Patient Condition:: Fair Meaningful Use Info Meaningful Use Diagnoses (Choose all that apply): None applicable Code Visit Inpatient E&M: 53784 Disch Hosp
[2017-09-18] MEDS: Ondansetron 4 MG/2 ML Vial IV (19:41)
--- NOTE | 2017-09-18 20:34 | NURSING ---
Dr. Riley, neurology called unit confirming that he saw the pt's MRI results and would like him to have a referral to the spinal surgeon on the 3rd floor at [facility] due to compression fractures and other findings. Asked Dr. Carter to make the referral, but he feels more comfortable having Dr. Riley's office do so. Spoke with the hospital metal spray operator to get the name of the spinal surgeon, and she states that they are no longer here at the hospital. Information relayed to pt to keep appt with Dr. Riley as planned and call his office for the referral to the spinal surgeon. Pt and visitor verbalize understanding.
== END 2017-09-18 20:40 | disposition home or self-care (01) | DRG 189 ==
LOC: ED 15:20 → MS2 17:55
PROVIDERS: Admitting Provider Internal Medicine; Emergency Provider Emergency Medicine; Family Provider Internal Medicine; PCP Internal Medicine; Visit Provider Family Medicine
DX: J96.01 Acute respiratory failure with hypoxia (principal); E43 Unspecified severe protein-calorie malnutrition; J44.1 Chronic obstructive pulmonary disease with (acute) exacerbation; Z68.1 Body mass index [BMI] 19.9 or less, adult; I69.320 Aphasia following cerebral infarction; E78.5 Hyperlipidemia, unspecified; I10 Essential (primary) hypertension; Z85.819 Personal history of malignant neoplasm of unspecified site of lip, oral cavity, and pharynx; Z92.21 Personal history of antineoplastic chemotherapy; Z92.3 Personal history of irradiation; F10.10 Alcohol abuse, uncomplicated; I65.23 Occlusion and stenosis of bilateral carotid arteries; I73.9 Peripheral vascular disease, unspecified; F17.210 Nicotine dependence, cigarettes, uncomplicated; K40.90 Unilateral inguinal hernia, without obstruction or gangrene, not specified as recurrent
CPT/HCPCS: 36415; 36600; 70544; 70547; 70551; 71046; 72147; 72149; 72156; 80048; 80061; 80076; 80320; 82803; 82977; 83735; 83880; 84100; 84439; 84443; 85025; 87070; 87205; 87633; 87804; 93005; 93306; 93880; 94640; 94667; 94668; 97802; 99285; 99406; A9585; J7030; J7040; A4216; G0480; J2405

== ENCOUNTER 2018-04-22 15:40 | Inpatient (IN) | payer MEDICARE, MEDICAID, SELFPAY ==
[2018-04-22] VITALS (14 sets, daily range): BP systolic 119–150; BP diastolic 72–110; PULSE 69–87; RESP 16–24; TEMP 36.5–36.8; O2SAT 94–99; BMI 16.7; BMI 16.8; BMI 22.3
[2018-04-22 16:06] LABS: Bedside Glucose 103 mg/dL (70-110)
[2018-04-22 16:29] LABS: Absolute Lymphocyte Count 1.28 X10^3/ul (0.83-4.51); Absolute Neutrophil Count 6.7 X10^3/uL (2.0-7.7); Basophil# 0.02 X10^3/uL; Basophil% 0.2 % (0-1); Eosinophil# 0.14 X10^3/uL; Eosinophils% 1.5 % (0-5); Hematocrit 43.1 % (40-54); Hemoglobin 14.4 g/dl (13.0-16.5); Lymphocyte # 1.28 X10^3/ul (4.0); Lymphocyte % 13.6 % (19-41); Mean Corp Hgb Conc 33.4 g/gl (32-36); Mean Corpuscular Hgb 30.4 pg (27.0-32.0); Mean Corpuscular Volume 90.9 fL (80-94); Mean Platelet Vol. 9.6 fl (6.2-12.0); Monocyte# 1.29 X10^3/uL; Monocyte% 13.7 % (0-10); Neutrophil % 70.9 % (47-70); POSITIVE COUNT NO; POSITIVE DIFFERENTIAL NO; POSITIVE MORPHOLOGY NO; Platelet Count 281 K/mm3 (150-450); RBC Distribution Width CV 15.7 % (11.6-14.6); RBC Distribution Width SD 52.1 fl (35.1-43.9); Red Blood Count 4.74 M/mm3 (4.6-6.2); White Blood Count 9.4 K/mm3 (4.4-11.0)
[2018-04-22 16:37] LABS: Anion Gap 10 (5-15); BUN 6 mg/dL (7-18); BUN/Creat Ratio 8.1 RATIO (10-20); Chloride 99 mmol/L (98-107); Creatinine, Serum 0.74 mg/dL (0.70-1.30); EST Glomerular Filtration Rate 115 mL/min (>60); Est Glom Filt Rate - Afr Amer 139 mL/min (>60); Estimated Creatinine Clearance 72.87 ml/min; Glucose 84 mg/dL (74-106); International Normalized Ratio 0.9; Potassium 3.7 mmol/L (3.5-5.1); Prothrombin Time (Protime)PT. 12.5 SECONDS (11.7-14.9); Sodium Level 134 mmol/L (136-145)
[2018-04-22 16:38] LABS: Partial Thromboplast Time 31.3 Seconds (24.1-36.2)
--- NOTE | 2018-04-22 18:00 | ED.VISSUMM ---
- ER Visit Summary Date of Service: 04/22/18 Chief Complaint: Stroke symptoms History of Present Illness: The patient is a 62 M with chronic left-sided weakness and speech difficulties secondary to a prior stroke. He is currently on aspirin. Since 3 PM on April 19 the patient has had right-sided weakness. Significant other is present states the patient refused to let her call 911. Physical Examination: Vital signs are unremarkable. Patient sitting upright in bed. Heart is regular rate and rhythm. Lung sounds clear. Abdomen is soft nontender. Neuro exam reveals a total NIH score of 7, although some of that is because of his chronic deficits. He receives one point for a mild right facial palsy, one point each for right arm and right leg drift. He receives one point for limb ataxia, one point for sensory deficit on the right, and one-point each for best language and dysarthria. Test Results: EKG is sinus at 77 with no sign of acute ischemia. CBC and chemistry studies normal. Coags normal. Troponin is less than 0.015. Chest x-ray shows COPD with no evidence of acute disease. Head CT reveals stable subcentimeter periventricular lacunar infarcts bilaterally. Emergency Department Course and Treatment: Patient is given IV fluids here. Vital signs remained stable. He will be admitted for further testing and workup. Treatment Plan: [] Disposition: Admit Impression: CVA This note was generated with [employer] dictation software. It may contain incorrect words, spelling, and punctuation that were not noted in review of the chart prior to signing ED Disposition - Plan for ED Patient: Chief Complaint: Neuro S/Sx Referrals: Arpit Diaz MD [Primary Care Provider] -
[2018-04-22] MEDS: 0.9% Normal Saline 1,000 ML 100 ML IV ×2 (18:19→21:16)
--- NOTE | 2018-04-22 20:07 | PCM.HP.STD ---
Problem List (1) COPD (chronic obstructive pulmonary disease) with acute bronchitis Status: Chronic (2) Right inguinal hernia Status: Chronic (3) Peripheral arterial disease Status: Chronic (4) Dyslipidemia Status: Chronic (5) Hypertension Status: Chronic (6) Ischemic stroke Status: Acute Comment: Recent about 2-3 weeks ago History of Present Illness Date of Admission: 04/22/18 Chief Complaint: Right sided weakness The patient is a 62 year old M with a h/o COPD, prior ischemic stroke with carotid artery disease, s/p right carotid endarterectomy, and HTN. He presents because since saturday he has been unable to walk and per his he is slurring his speech. Apparently he was refusing to go to the ER until this morning when he called his general surgeon who was going to repair his inguinal hernia. they told him surgery was canceled and that he had to proceed to the ER for testing. In the ER a CT head was negative however his NIH was a 7, unfortunately his last known normal was 3 days ago. He has had a recent MRA neck about a month ago and he has a vascular surgeon at the [facility] who who is aware and treating his carotid artery disease. He continues to smoke. Past Medical History Past Medical History (Chronic Problems): Chronic Problems COPD (chronic obstructive pulmonary disease) with acute bronchitis (Chronic) Right inguinal hernia (Chronic) Peripheral arterial disease (Chronic) Throat cancer (Chronic) Dyslipidemia (Chronic) Hypertension (Chronic) H/O: stroke (Chronic) COPD (chronic obstructive pulmonary disease) with emphysema (Chronic) Allergies No Known Allergies Allergy (Verified 04/22/18 15:46) Home Medications: Ambulatory Orders Medication Instructions Recorded Fluticasone Propionate [Flonase 1 spray NS DAILY 09/26/15 Allergy Relief] Budesonide/Formoterol 160/4.5 2 puff INHALATION BID 09/16/17 [Symbicort 160/4.5 Mcg Inhaler (SP)] Albuterol IH (ProAir) [Proair Hfa] 1 - 2 puff INHALATION Q2H PRN PRN 09/18/17 #1 inhaler Amlodipine [Norvasc] 10 mg PO DAILY #30 tab 09/18/17 Atorvastatin Calcium 80 mg PO QHS #30 tab 09/18/17 Folic Acid 1 mg PO DAILY@0800 #30 tab 09/18/17 Aspirin E.C. [Ecotrin] 81 mg PO DAILY 04/22/18 Metoprolol Tartrate 25 mg PO BID 04/22/18 Surgical History: - - Carotid Endarterectomy Lives: Spouse/ Significant Other Smoking Status: Current every day smoker Tobacco Use: Cigarettes Alcohol: None Drugs: None - *Family History Paternal History Items: High Cholesterol, Heart Disease, Hypertension Review of Systems Constitutional: Denies: Chills, Fever, Weight Change HEENT: Denies: Difficulty Hearing, Difficulty Swallowing, Dysphasia Cardiovascular: Denies: Chest Pain, Palpitations Respiratory: Denies: Cough, Shortness of breath at rest, Sputum production Gastrointestinal: Denies: Abdominal Pain, Nausea, Vomiting Genitourinary: Denies: Dysuria Musculoskeletal: Denies: Joint Pain, Joint Tenderness Skin: Denies: Rash, Wounds Neurological: Reports: Slurred speech. Denies: Numbness, Tingling Psychiatric: Denies: Anxiety, Depression Hematologic/ Lymphatic: Denies: Easy Bruising, Easy Bleeding VTE Information - Inpt Only VTE Present on Admission: No - Physical Exam General: Alert, Oriented x3, Cooperative, No apparent distress HEENT: Atraumatic, EOMI, Normocephalic Neck: Supple, No JVD Lungs: Normal air movement, No rhonchi, No rales, Wheezes Cardiovascular: Regular rate, Regular Rhythm, Normal S1, Normal S2, No murmurs Abdomen: Soft, Non Tender, Non-Distended, No Hepato-splenomegaly Extremities: No edema, Capillary Refill Less than 3 Seconds Skin: No rashes, No breakdown Neurological: Motor Exam 5/5 strength throughout, Slurred Speech, - - right facial droop, rest of the cranial nerves intact. decreased sensation on the right lower extremity compared to the LLE. Psych/Mental Status: Normal Affect, Appropriate Vital Signs Temp Pulse Resp BP Pulse Ox 98.1 F 73 18 150/77 H 99 04/22/18 19:13 04/22/18 19:38 04/22/18 19:13 04/22/18 19:13 04/22/18 19:13 Oxygen Flow Rate (L/min) 2 Oxygen Delivery Method Nasal Cannula Weight: 142 lb 10.225 oz Body Mass Index (BMI) 22.3 Assessment/Plan All Active Problems Ischemic stroke (Acute) Acute respiratory failure with hypoxia (Acute) 1. Acute on chronic CVA/Carotid artery stenosis b/l s/p R CEA/HTN - We are 3 days out from the acute event - Oddly the CT brain is negative for a new area of ischemia - Will obtain an MRI brain in the am and start on plavix daily - C/w aspirin and his statin that he has been on - He has had a MRA neck at the [facility]. He will need to be referred back to his vascular surgeon for a L CEA - In August after his first CVA, the MRA neck had a 73% stenosis on the right carotid and 90% stenosis on the L - Given his facial droop and dysarthria, will consult speech for swallowing eval - PT/OT - C/w his home BP medication as we are out of the window for permissive hypertension - Neuro checks 2. COPD - Stable - c/w home medications Diet: Cardiac DVT: Lovenox Dispo: Pending MRI Code Visit Inpatient E&M: 65457 Init Hosp L3
[2018-04-22] MEDS: Atorvastatin Calcium 80 MG Tablet PO (21:18)
[2018-04-22] MEDS: Metoprolol Tartrate 25 MG Tablet PO (21:18)
[2018-04-22 22:07] LABS: Cholesterol 163 mg/dL (200); High Density Lipoprotein 79 mg/dL; Triglycerides 113 mg/dL; Very Low Density Lipoprotein 23 mg/dL (5-40)
[2018-04-22] MEDS: Budesonide Respules 0.5 MG/2 ML AMPUL.NEB. INHALATION (22:23)
[2018-04-22] MEDS: Albuterol 2.5 MG/3 ML VIAL.NEB. INHALATION (22:23)
[2018-04-23] VITALS (18 sets, daily range): BP systolic 127–136; BP diastolic 57–76; PULSE 56–118; RESP 12–18; TEMP 36.6–37.3; O2SAT 92–99; BMI 22.3
[2018-04-23 06:50] LABS: Absolute Neutrophil Count 3.5 X10^3/uL (2.0-7.7); Basophil# 0.03 X10^3/uL; Basophil% 0.5 % (0-1); Eosinophil# 0.19 X10^3/uL; Eosinophils% 3.4 % (0-5); Hematocrit 39.7 % (40-54); Hemoglobin 13.3 g/dl (13.0-16.5); Lymphocyte % 14.3 % (19-41); Mean Corp Hgb Conc 33.5 g/gl (32-36); Mean Corpuscular Hgb 30.3 pg (27.0-32.0); Mean Corpuscular Volume 90.4 fL (80-94); Mean Platelet Vol. 9.9 fl (6.2-12.0); Monocyte# 1.02 X10^3/uL; Monocyte% 18.3 % (0-10); Neutrophil # 3.52 X10^3/uL (2.7-7.7); Neutrophil % 63.1 % (47-70); Platelet Count 285 K/mm3 (150-450); RBC Distribution Width CV 15.8 % (11.6-14.6); RBC Distribution Width SD 51.7 fl (35.1-43.9); Red Blood Count 4.39 M/mm3 (4.6-6.2); White Blood Count 5.6 K/mm3 (4.4-11.0)
[2018-04-23 06:51] LABS: POSITIVE COUNT NO; POSITIVE DIFFERENTIAL NO; POSITIVE MORPHOLOGY NO
[2018-04-23 07:07] LABS: Anion Gap 9 (5-15); BUN 7 mg/dL (7-18); Calcium,Total 8.5 mg/dL (8.5-10.1); Chloride 103 mmol/L (98-107); Cholesterol 133 mg/dL (200); Creatinine, Serum 0.54 mg/dL (0.70-1.30); EST Glomerular Filtration Rate 165 mL/min (>60); Est Glom Filt Rate - Afr Amer 200 mL/min (>60); Estimated Creatinine Clearance 133.13 ml/min; Glucose 81 mg/dL (74-106); High Density Lipoprotein 66 mg/dL; Potassium 4.2 mmol/L (3.5-5.1); Sodium Level 139 mmol/L (136-145); Triglycerides 94 mg/dL; Very Low Density Lipoprotein 19 mg/dL (5-40)
[2018-04-23] MEDS: 0.9% Normal Saline 1,000 ML 100 ML IV ×2 (07:13→17:30)
[2018-04-23] MEDS: Albuterol 2.5 MG/3 ML VIAL.NEB. INHALATION ×3 (07:16→18:34)
[2018-04-23] MEDS: Budesonide Respules 0.5 MG/2 ML AMPUL.NEB. INHALATION ×2 (07:16→18:34)
[2018-04-23] MEDS: Metoprolol Tartrate 25 MG Tablet PO ×2 (09:29→21:45)
[2018-04-23] MEDS: Enoxaparin 40 MG/0.4 ML Syringe SC (09:29)
[2018-04-23] MEDS: Aspirin E.C. 81 MG Tablet PO (09:29)
[2018-04-23] MEDS: Folic Acid 1 MG Tablet PO (09:29)
[2018-04-23] MEDS: Clopidogrel Bisulfate 75 MG Tablet PO (09:30)
[2018-04-23] MEDS: amLODIPine 10 MG Tablet PO (09:30)
--- NOTE | 2018-04-23 11:16 | CASEMGMT ---
This RN CM to room to complete CM assessment and pt is headed to bathroom at this time. Will attempt again later. SStaten RN CM
--- NOTE | 2018-04-23 13:44 | CASEMGMT ---
Face to Face with patient for initial transition planning/care coordination assessment. AMBERLY PRIDE introduced self and role at [facility], pt voices understanding and consents to assessment at this time. Pt is sitting up in bed in no distress at this time. Pt is A/Ox4 at this time and answers questions appropriately but sig other completes assessment for pt at this time. Care providers, pharmacy, and demographics verified. See attached link. Pt/sig other voice no further concerns/needs at this time. Advised pt/sig other to ask for CM if any further questions/concerns/needs arise, voices understanding. CM to follow for any further discharge planning/needs. PLAN: Home SStaten AMBERLY PRIDE
--- NOTE | 2018-04-23 14:21 | NURSING ---
Read and reviewed SN documentation
--- NOTE | 2018-04-23 14:22 | PCM.PN.HOSP ---
Subjective: Patient was seen and examined. Denies any new complaints. Has dysarthria. Denies worsening weakness in the right side Objective: Physical Exam General: Alert, Oriented x3, Cooperative, No apparent distress HEENT: Atraumatic, EOMI, Normocephalic Neck: Supple, No JVD Lungs: Normal air movement, No rhonchi, No rales, Wheezes Cardiovascular: Regular rate, Regular Rhythm, Normal S1, Normal S2, No murmurs Abdomen: Soft, Non Tender, Non-Distended, No Hepato-splenomegaly Extremities: No edema, Capillary Refill Less than 3 Seconds Skin: No rashes, No breakdown Neurological: Motor Exam 5/5 strength throughout, Slurred Speech, - - right facial droop, rest of the cranial nerves intact. decreased sensation on the right lower extremity compared to the LLE. Psych/Mental Status: Normal Affect, Appropriate Vitals/I&O's: Vital Signs Temp Pulse Resp BP Pulse Ox 98.4 F 72 16 136/76 H 92 04/23/18 11:10 04/23/18 13:12 04/23/18 13:12 04/23/18 11:10 04/23/18 13:12 Oxygen Flow Rate (L/min) 2 Oxygen Delivery Method Room Air Weight: 64.7 kg Body Mass Index (BMI) 22.3 Intake and Output for Last 24 Hours 04/21/18 04/22/18 04/23/18 23:59 23:59 23:59 Intake Total 634 / 634 1489 / 1489 Balance 634 / 634 1489 / 1489 Laboratory Results 04/23/18 05:25: WBC 5.6, RBC 4.39 L, Hgb 13.3, Hct 39.7 L, MCV 90.4, MCH 30.3, MCHC 33.5, RDW 15.8 H, RDW Differential 51.7 H, Plt Count 285, MPV 9.9, Immature Gran % (Auto) 0.400, Neut % (Auto) 63.1, Lymph % (Auto) 14.3 L, [place] % (Auto) 18.3 H, Eos % (Auto) 3.4, Baso % (Auto) 0.5, Absolute Neuts (auto) 3.5, Absolute Lymphs (auto) 0.80 L, Total Counted Not Reportable 04/23/18 05:25: Sodium 139, Potassium 4.2, Chloride 103, Carbon Dioxide 27.0, Anion Gap 9, BUN 7, Creatinine 0.54 L, Estim Creat Clear Calc 133.13, Est GFR (MDRD) Af Amer 200, Est GFR (MDRD) Non-Af 165, BUN/Creatinine Ratio 13.0, Glucose 81, Calcium 8.5, Triglycerides 94, Cholesterol 133, LDL Cholesterol 48, VLDL Cholesterol 19, HDL Cholesterol 66 Current Medications Acetaminophen (Tylenol) 650 mg PO Q6H PRN PRN PRN Reason: HEADACHE Albuterol Sulfate (Ventolin Aerosols) 2.5 mg INHALATION Q4H PRN PRN Reason: SOB &/OR WHEEZING Albuterol Sulfate (Ventolin Aerosols) 2.5 mg INHALATION Q6HWA.RT [facility] Last Admin: 04/23/18 13:12 Dose: 2.5 mg Amlodipine Besylate (Norvasc) 10 mg PO DAILY [facility] Last Admin: 04/23/18 09:30 Dose: 10 mg Aspirin (Ecotrin) 81 mg PO DAILY@0800 [facility] Last Admin: 04/23/18 09:29 Dose: 81 mg Atorvastatin Calcium (Lipitor) 80 mg PO QHS [facility] Last Admin: 04/22/18 21:18 Dose: 80 mg Budesonide (Pulmicort Aerosol) 0.5 mg INHALATION Q12H.RT [facility] Last Admin: 04/23/18 07:16 Dose: 0.5 mg Clopidogrel Bisulfate (Plavix) 75 mg PO DAILY [facility] Last Admin: 04/23/18 09:30 Dose: 75 mg Enoxaparin Sodium (Lovenox) 40 mg SC DAILY@1000 [facility] Last Admin: 04/23/18 09:29 Dose: 40 mg Fluticasone Propionate (Flonase Nasal [place]) 1 spray NASAL DAILY [facility] Last Admin: 04/23/18 09:29 Dose: Not Given Folic Acid (Folic Acid) 1 mg PO DAILY@0800 [facility] Last Admin: 04/23/18 09:29 Dose: 1 mg Sodium Chloride () 1,000 mls @ 100 mls/hr IV .Q10H [facility] Last Admin: 04/23/18 07:13 Dose: 100 mls/hr Magnesium Hydroxide (Milk Of Magnesia) 30 ml PO DAILY PRN PRN Reason: Constipation Metoprolol Tartrate (Lopressor (Beta Pierre)) 25 mg PO BID [facility] Last Admin: 04/23/18 09:29 Dose: 25 mg Nutritional Formula (Lactose Free) (Ensure Enlive) 120 ml PO 4X/DAY [facility] Last Admin: 04/23/18 14:20 Dose: Not Given Medical Necessity - Tobacco Use Smoking Status: Current every day smoker Tobacco Use: Cigarettes Assessment/Plan All Active Problems Ischemic stroke (Acute) Acute respiratory failure with hypoxia (Acute) 1. Acute left internal capsule lacunar infarct, history of chronic thalamic lacunar infarct, patient was on aspirin, switched to Plavix, neurology consulted MRA of the head and neck, patient had a 2D echo done in February 2018, will defer to neurology if they need one, will check HbA1c 2. COPD, stable, no signs of acute 3. Hypertension, controlled, continue on home medications 4. Hyperlipidemia, on statin 5. DVT prophylaxis with Lovenox subcu Code Visit Inpatient E&M: 93416 Subs Hosp L2
[2018-04-23 15:20] LABS: Hemoglobin A1c 5.9 % (4.2-6.3)
--- NOTE | 2018-04-23 16:20 | CON.PCM_ITS ---
Reason for Consult Date of Consultation: 04/23/18 Reason for Consultation: cva History of Present Illness: The patient is a 62 year old right handed male presents with right facial and right side weakness associated with slurred speech begining 3 d ago. reports symptoms somewhat improved. reports walking ok, swallowing ok. right cea 3 months ago, doesnt recall where. takes asa daily. continues to smoke. per admit h &p:The patient is a 62 year old M with a h/o COPD, prior ischemic stroke with carotid artery disease, s/p right carotid endarterectomy, and HTN. He presents because since saturday he has been unable to walk and per his he is slurring his speech. Apparently he was refusing to go to the ER until this morning when he called his general surgeon who was going to repair his inguinal hernia. they told him surgery was canceled and that he had to proceed to the ER for testing. In the ER a CT head was negative however his NIH was a 7 , unfortunately his last known normal was 3 days ago. He has had a recent MRA neck about a month ago and he has a [facility] who who is aware and treating his carotid artery disease. He continues to smoke. Past Medical History Past Medical History (Chronic Problems): Chronic Problems COPD (chronic obstructive pulmonary disease) with acute bronchitis (Chronic) Right inguinal hernia (Chronic) Peripheral arterial disease (Chronic) Throat cancer (Chronic) Dyslipidemia (Chronic) Hypertension (Chronic) H/O: stroke (Chronic) COPD (chronic obstructive pulmonary disease) with emphysema (Chronic) Allergies No Known Allergies Allergy (Verified 04/22/18 15:46) Home Medications: Ambulatory Orders Medication Instructions Recorded Fluticasone Propionate [Flonase 1 spray NS DAILY 09/26/15 Allergy Relief] Budesonide/Formoterol 160/4.5 2 puff INHALATION BID 09/16/17 [Symbicort 160/4.5 Mcg Inhaler (SP)] Albuterol IH (ProAir) [Proair Hfa] 1 - 2 puff INHALATION Q2H PRN PRN 09/18/17 #1 inhaler Amlodipine [Norvasc] 10 mg PO DAILY #30 tab 09/18/17 Atorvastatin Calcium 80 mg PO QHS #30 tab 09/18/17 Folic Acid 1 mg PO DAILY@0800 #30 tab 09/18/17 Aspirin E.C. [Ecotrin] 81 mg PO DAILY 04/22/18 Metoprolol Tartrate 25 mg PO BID 04/22/18 Surgical History: - - Carotid Endarterectomy Lives: Spouse/ Significant Other Smoking Status: Current every day smoker Tobacco Use: Cigarettes Alcohol: None Drugs: None - *Family History Paternal History Items: High Cholesterol, Heart Disease, Hypertension Review of Systems Constitutional: Denies: Chills, Fever, Weight Change HEENT: Denies: Head Aches, Sinus Congestion, Sinus Drainage Cardiovascular: Denies: Chest Pain, Palpitations Respiratory: Denies: Cough, Shortness of breath at rest, Sputum production Gastrointestinal: Denies: Abdominal Pain, Nausea, Vomiting Genitourinary: Denies: Dysuria Musculoskeletal: Denies: Joint Pain, Joint Tenderness Skin: Denies: Rash, Wounds Neurological: Denies: Numbness, Tingling, Focal weakness Psychiatric: Denies: Anxiety, Depression, Homicidal Ideations, Suicidal Ideations Hematologic/ Lymphatic: Denies: Easy Bruising, Easy Bleeding - Physical Exam General: Alert, Oriented x3, Cooperative HEENT: Atraumatic, PERRLA, EOMI, Normocephalic Neck: Supple, No JVD, Negative Carotid Bruits Lungs: Clear to auscultation, Normal air movement Cardiovascular: Regular rate, No murmurs Abdomen: Bowel Sounds Present, Soft, Non Tender Extremities: No edema, Capillary Refill Less than 3 Seconds Skin: No rashes, No breakdown Musculoskeletal: No Tenderness to Palpation of Joints or Extremities Neurological: Slurred Speech, - - right discoord, mild right drift, no sensory deficit Psych/Mental Status: Normal Affect, Appropriate Vital Signs Temp Pulse Resp BP Pulse Ox 37.3 C H 80 16 127/72 H 94 04/23/18 15:10 04/23/18 15:10 04/23/18 15:10 04/23/18 15:10 04/23/18 15:10 Oxygen Flow Rate (L/min) 2 Oxygen Delivery Method Room Air Weight: 64.7 kg Body Mass Index (BMI) 22.3 Intake and Output for Last 24 Hours 04/21/18 04/22/18 04/23/18 23:59 23:59 23:59 Intake Total 634 / 634 1489 / 1489 Balance 634 / 634 1489 / 1489 Laboratory Tests Past 24 Hrs 04/23/18 04/23/18 04/23/18 05:25 05:25 05:25 WBC 5.6 RBC 4.39 L Hgb 13.3 Hct 39.7 L MCV 90.4 MCH 30.3 MCHC 33.5 RDW 15.8 H RDW Differential 51.7 H Plt Count 285 MPV 9.9 Immature Gran % (Auto) 0.400 Neut % (Auto) 63.1 Lymph % (Auto) 14.3 L [place] % (Auto) 18.3 H Eos % (Auto) 3.4 Baso % (Auto) 0.5 Absolute Neuts (auto) 3.5 Absolute Lymphs (auto) 0.80 L Total Counted Not Reportable Sodium 139 Potassium 4.2 Chloride 103 Carbon Dioxide 27.0 Anion Gap 9 BUN 7 Creatinine 0.54 L Estim Creat Clear Calc 133.13 Est GFR (MDRD) Af Amer 200 Est GFR (MDRD) Non-Af 165 BUN/Creatinine Ratio 13.0 Glucose 81 Hemoglobin A1c 5.9 Calcium 8.5 Triglycerides 94 Cholesterol 133 LDL Cholesterol 48 VLDL Cholesterol 19 HDL Cholesterol 66 mri reviewed, acute small left Internal capsule infarct Current Medications Generic Name Dose Route Start Last Admin Trade Name Freq PRN Reason Stop Dose Admin Acetaminophen 650 mg 04/23/18 14:18 Tylenol PO Q6H PRN PRN HEADACHE Albuterol Sulfate 2.5 mg 04/22/18 20:07 Ventolin Aerosols INHALATION Q4H PRN SOB &/OR WHEEZING Albuterol Sulfate 2.5 mg 04/22/18 20:15 04/23/18 13:12 Ventolin Aerosols INHALATION 2.5 mg Q6HWA.RT [facility] Administration Amlodipine Besylate 10 mg 04/23/18 10:00 04/23/18 09:30 Norvasc PO 10 mg DAILY [facility] Administration Atorvastatin Calcium 80 mg 04/22/18 22:00 04/22/18 21:18 Lipitor PO 80 mg QHS [facility] Administration Budesonide 0.5 mg 04/22/18 20:15 04/23/18 07:16 Pulmicort Aerosol INHALATION 0.5 mg Q12H.RT [facility] Administration Clopidogrel Bisulfate 75 mg 04/23/18 10:00 04/23/18 09:30 Plavix PO 75 mg DAILY [facility] Administration Enoxaparin Sodium 40 mg 04/23/18 10:00 04/23/18 09:29 Lovenox SC 40 mg DAILY@1000 [facility] Administration Fluticasone Propionate 1 spray 04/23/18 10:00 04/23/18 09:29 Flonase Nasal [place] NASAL Not Given DAILY [facility] Folic Acid 1 mg 04/23/18 08:00 04/23/18 09:29 Folic Acid PO 1 mg DAILY@0800 [facility] Administration Sodium Chloride 1,000 mls @ 100 mls/hr 04/22/18 20:05 04/23/18 07:13 IV 100 mls/hr .Q10H [facility] Administration Magnesium Hydroxide 30 ml 04/22/18 19:58 Milk Of Magnesia PO DAILY PRN Constipation Metoprolol Tartrate 25 mg 04/22/18 22:00 04/23/18 09:29 Lopressor (Beta Pierre) PO 25 mg BID [facility] Administration Nutritional Formula (Lactose Free) 120 ml 04/22/18 22:00 04/23/18 14:20 Ensure Enlive PO Not Given 4X/DAY [facility] Assessment/Plan All Active Problems Ischemic stroke (Acute) Acute respiratory failure with hypoxia (Acute) new small left internal capsule infarct s/p right ica infarct dc tob bp control continue asa, add plavix monitor tele echo pt/ot/sp
--- NOTE | 2018-04-23 20:24 | NURSING ---
NIHSS and pt VS not done on 4 hr melissa d/t pt off floor at MRI
[2018-04-23] MEDS: Atorvastatin Calcium 80 MG Tablet PO (21:46)
[2018-04-24] VITALS (10 sets, daily range): BP systolic 120–142; BP diastolic 63–78; PULSE 76–93; RESP 15–18; TEMP 36.7–37.2; O2SAT 93–96; BMI 22.3
[2018-04-24] MEDS: 0.9% Normal Saline 1,000 ML 100 ML IV (05:04)
[2018-04-24 06:09] LABS: Cholesterol 141 mg/dL (200); High Density Lipoprotein 73 mg/dL; Triglycerides 105 mg/dL; Very Low Density Lipoprotein 21 mg/dL (5-40)
[2018-04-24] MEDS: Albuterol 2.5 MG/3 ML VIAL.NEB. INHALATION ×2 (07:13→13:16)
[2018-04-24] MEDS: Budesonide Respules 0.5 MG/2 ML AMPUL.NEB. INHALATION (07:13)
[2018-04-24] MEDS: amLODIPine 10 MG Tablet PO (08:23)
[2018-04-24] MEDS: Folic Acid 1 MG Tablet PO (08:24)
[2018-04-24] MEDS: Clopidogrel Bisulfate 75 MG Tablet PO (08:24)
[2018-04-24] MEDS: Metoprolol Tartrate 25 MG Tablet PO (08:24)
[2018-04-24] MEDS: Enoxaparin 40 MG/0.4 ML Syringe SC (08:25)
--- NOTE | 2018-04-24 13:39 | PCM.DC ---
You will use the following diet at home:: Cardiac Your food should be the consistency of: Regular Your liquids should be the consistency of: Regular/Thin Discharge Activity: Return to Normal Activity Additional Instructions: Continue to take all your medications. You will be referred for outpatient therapy to help with your strength. You should follow-up with Neurology. Allergies/Adverse Reactions: Allergies No Known Allergies Allergy (Verified 04/22/18 15:46) Medications to take at Discharge Fluticasone Propionate [Flonase Allergy Relief] 1 spray NS DAILY 09/26/15 Budesonide/Formoterol 160/4.5 [Symbicort 160/4.5 Mcg Inhaler (SP)] 2 puff INHALATION BID 09/16/17 Albuterol IH (ProAir) [Proair Hfa] 1 - 2 puff INHALATION Q2H PRN PRN #1 inhaler 09/18/17 Amlodipine [Norvasc] 10 mg PO DAILY #30 tab 09/18/17 Atorvastatin Calcium 80 mg PO QHS #30 tab 09/18/17 Folic Acid 1 mg PO DAILY@0800 #30 tab 09/18/17 Aspirin E.C. [Ecotrin] 81 mg PO DAILY 04/22/18 Metoprolol Tartrate 25 mg PO BID 04/22/18 Clopidogrel Bisulfate [Plavix] 75 mg PO DAILY #30 tab 04/24/18 Ensure Enlive 120 ml PO 4X/DAY #100 liquid 04/24/18 The following prescriptions were given: Clopidogrel Bisulfate [Plavix] 75 mg PO DAILY #30 tab Primary Care Physician: Arpti Diaz MD [Primary Care Provider] - Please follow up with your Primary Care Physician in: within 2 weeks Test Results: Test results from this visit will be discussed in further detail at your follow-up appointment, if applicable. Please Follow Up With: Greg Moon MD When: within 2 weeks Proposed Discharge Date: 04/24/18
--- NOTE | 2018-04-24 13:49 | PCM.DC.SUM ---
Discharge Date and Diagnosis Date of Admission: 04/22/18 Date of Discharge: 04/24/18 - Primary Discharge Diagnosis Acute left internal capsule lacunar infarct Tobacco dependency - Secondary Discharge Diagnosis Chronic Problems COPD (chronic obstructive pulmonary disease) with acute bronchitis (Chronic) Right inguinal hernia (Chronic) Peripheral arterial disease (Chronic) Throat cancer (Chronic) Dyslipidemia (Chronic) Hypertension (Chronic) H/O: stroke (Chronic) COPD (chronic obstructive pulmonary disease) with emphysema (Chronic) Hospital Course and Treatment Imaging Results: Clinical Impression(s) from Imaging Studies Brain CT 04/22/18 16:07 IMPRESSION: Stable subcentimeter periventricular lacunar infarcts bilaterally. No acute intracranial abnormality. Chronic ischemic and atrophic changes. Left maxillary sinusitis. Electronically Signed: Loki Mathis at 17:24 EDT Tel , Service support , Chest X-Ray 04/22/18 16:07 IMPRESSION: COPD. No acute disease. Electronically Signed: Amilcar Rivera MD at 17:19 EDT , Service support , Brain MRI 04/23/18 05:55 IMPRESSION: Acute left internal capsule lacunar infarct. Chronic thalamic lacunar infarct. Severe chronic microvascular ischemic changes. N.B. : The above information has been verbally conveyed by Eulalio Tamayo MD to yayo thornton , [facility]- In-Patient RN, on 04/23/2018 11:54:18 (ET). Electronically Signed: Eulalio Tamayo MD at 11:40 EDT Tel , Service support , Head MRA 04/23/18 17:12 IMPRESSION: Normal MRA of the head Electronically Signed: Amilcar Rivera MD at 20:03 EDT , Service support , Neck MRA 04/23/18 17:12 IMPRESSION: Normal bilateral cervical carotid and vertebral arteries. Electronically Signed: Amilcar Rivera MD at 20:04 EDT , Service support , Neurology Operations: None Procedures: 2-D Echocardiogram Summary of Care Provided: The patient is a 62 year old M with prior ischemic stroke with carotid artery disease, s/p right carotid endarterectomy, and hypertension, last known normal was 3 days to presentation, who was admitted with complains of inability to walk and slurred speech. He had refused to go to his ED because he had an appointment with to have his inguinal hernia repaired. When he called his general surgeon, he was told that his surgery was canceled and that he had to proceed to the ER for testing. In the ED, a CT head was negative. His Admitting NIHSS was 7. He had a recent MRA neck about a month ago and follows with vascular surgery in the [facility]. He was admitted to a telemetry bed. Repeat MRI of brain showed Acute left internal capsule lacunar infarct, chronic thalamic lacunar infarct. Seen by Neurology. 2d-echo was unremarkable. HgbA1c was 5.9. He had plavix added to his aspirin, statin were continued. Patient was seen by PT/OT and found to be ok for discharge. Referral was made to outpatient therapy. He will follow-up with Neurology in 2-4 weeks. He was strongly advised to quit smoking. Discharge Diet: Low fat/ Low Cholesterol, 2000 mg Sodium Diet Discharge Activity: Return to Normal Activity Home Medications: Medications to take at Discharge Fluticasone Propionate [Flonase Allergy Relief] 1 spray NS DAILY 09/26/15 Budesonide/Formoterol 160/4.5 [Symbicort 160/4.5 Mcg Inhaler (SP)] 2 puff INHALATION BID 09/16/17 Albuterol IH (ProAir) [Proair Hfa] 1 - 2 puff INHALATION Q2H PRN PRN #1 inhaler 09/18/17 Amlodipine [Norvasc] 10 mg PO DAILY #30 tab 09/18/17 Atorvastatin Calcium 80 mg PO QHS #30 tab 09/18/17 Folic Acid 1 mg PO DAILY@0800 #30 tab 09/18/17 Aspirin E.C. [Ecotrin] 81 mg PO DAILY 04/22/18 Metoprolol Tartrate 25 mg PO BID 04/22/18 Clopidogrel Bisulfate [Plavix] 75 mg PO DAILY #30 tab 04/24/18 Ensure Enlive 120 ml PO 4X/DAY #100 liquid 04/24/18 Following Prescrptions Were Given to Patient: Clopidogrel Bisulfate [Plavix] 75 mg PO DAILY #30 tab Primary Care Physician: Arpit Diaz MD [Primary Care Provider] - Please follow up with your Primary Care Physician in: within 2 weeks Please Follow Up With: Greg Moon MD When: within 2 weeks Disposition: Home Minutes spent on discharge:: 45 Patient Condition:: Stable Medical Necessity - Tobacco Use Smoking Status: Current every day smoker Tobacco Use: Cigarettes Meaningful Use Info Meaningful Use Diagnoses (Choose all that apply): Ischemic CVA - CVA Therapy Assessed for PT,OT and/or ST?: Yes - Ischemic Stroke Antithrombotic order at d/c?: Yes Dx of Atrial fib/flutter?: No Anticoagulant at discharge?: No Reason anticoagulant not ordered: Treatment not Indicated Statins at discharge?: Yes Primary Dx Acute Ischemic CVA?: Yes IV tPA ordered during stay?: No Reason IV t-PA not ordered: Treatment not Indicated Code Visit Inpatient E&M: 99896 Disch Hosp
--- NOTE | 2018-04-24 14:07 | CASEMGMT ---
Per Dr. Curiel, she would like pt sent home with outpt therapy. This RN CM to room to speak with pt and sig other and per sig other, pt will most likely refuse to do therapy but she is willing to take the order with them in case he does decide to do. Sig other refuses for script to be sent to [facility] at this time and states she will 'take care of it', if needed. SStaten AMBERLY CM
[2018-04-24] MEDS: Aspirin 81 MG TAB.CHEW PO (14:10)
--- NOTE | 2018-04-25 14:55 | CASEMGMT ---
RN CM Discharge Phone call. DC DATE: 04/24/18 [facility] Disposition: Home Intro role of CM to patient's . she stated pt is doing well, no questions or concerns at this time. Pt has his prescriptions filled and follow appointments were made with Dr. Diaz and Dr. Moon. Parker LEUNGN AMBERLY ACM
== END 2018-04-24 14:35 | disposition home or self-care (01) | DRG 65 ==
LOC: ED 16:00 → PCU 18:49
PROVIDERS: Admitting Provider Family Medicine; Emergency Provider Emergency Medicine; Family Provider Internal Medicine; PCP Internal Medicine; Visit Provider Internal Medicine
DX: I63.9 Cerebral infarction, unspecified (principal); G81.91 Hemiplegia, unspecified affecting right dominant side; I69.354 Hemiplegia and hemiparesis following cerebral infarction affecting left non-dominant side; I10 Essential (primary) hypertension; E78.5 Hyperlipidemia, unspecified; R29.810 Facial weakness; R29.707 NIHSS score 7; F17.210 Nicotine dependence, cigarettes, uncomplicated; I69.328 Other speech and language deficits following cerebral infarction; Z79.82 Long term (current) use of aspirin; K40.90 Unilateral inguinal hernia, without obstruction or gangrene, not specified as recurrent; I73.9 Peripheral vascular disease, unspecified; J44.9 Chronic obstructive pulmonary disease, unspecified; C14.0 Malignant neoplasm of pharynx, unspecified
CPT/HCPCS: 36415; 70450; 70544; 70549; 70551; 71045; 80048; 80061; 82962; 83036; 84484; 85025; 85610; 85730; 93005; 93306; 94640; 97162; 97166; 97530; 97802; 99285; 99406; A9585; J7030; A4216

== ENCOUNTER 2019-02-04 05:41 | Day surgery (SDC) | payer MEDICARE, MEDICAID, SELFPAY ==
--- NOTE | 2019-02-03 19:26 | PCM.HP.BLA ---
History and Physical Date of Admission: 02/04/19 HISTORY AND PHYSICAL ? Earnest Mi 1955 ? ? REFERRING PHYSICIAN: ??Liliya Corbin, DO ? CHIEF COMPLAINT: ??Consult (hernia) - weakness dizziness. ? HPI: Earnest is a?63?year old male with a complaint of a bulge ?in his right inguinal region. ?He also notes a bulge in his right inguinal area. ?This is a site where he had a previous vascular procedure. ? I did initially seen the patient March 2018.??In discussions with the patient, his real complaint is the fact that he feels weakness in bilateral lower extremities dizziness is been falling more recently. ?The patient is a heavy chronic smoker with severe peripheral vascular disease. ?He notes a bulge in his right inguinal region but denies that this causes him pain. ?He has no symptoms of bowel obstruction. ???Following this, the patient was referred back to his primary care physician and then admitted to [facility] was felt that it actually had a CVA. ?The patient was attempted to cut back on smoking. ?He decreased to half pack per day. ?He underwent a right carotid endarterectomy. ?It is now been over 6 months since these events. ?His hernia still bothering him and he wishes to have this repaired. ? ? ? PAST?MEDICAL?HISTORY PAST MEDICAL HISTORY Diagnosis Date ? Acute respiratory failure (HCC) 03/05/2018 ? Alcohol withdrawal delirium, acute, hyperactive (HCC) 09/29/2015 ? Hx:Drinks minimum 6pk beer a day 09/28/2015 Postop Precedex gtt required for a few hrs to control agitation during vent weaning. Scheduled Ativan taper initiated for acute detox with good success initially. ??A/P Pt became agitated (DT's) on POD #2 and responded to increasing doses of BZD. Low dose haldol was added for worsening confusion with good results. ?09/30/2014 Patient transferred to [facility] with [facility] protocol and sitter ??Stable, A&O x3 No sitter several days. Significant other at his side. Affirms the patient is at his baseline. Counseled ETOH abuse and smoking cessation ? Allergic rhinitis, cause unspecified ? ? Allergic rhinitis ? Carotid stenosis, asymptomatic, bilateral 02/17/2018 ? Right carotid endarterectomy 03/[address] Stanton Admit to ICU for overnight observation s/p procedure Right carotid site intact with surgical glue, no hematoma, minimal ecchymosis noted ?TOÑITO drain with scant amount of serosanguinous drainage ?Neurological intact, drowsy ->?rouses easily, follows commands, extremity strength equal, no aphasia, no focal deficits ??Rt radial arterial line ??Plan Resume 81mg ASA Resume statin Stop NTG Resume oral antihypertensives (increase lopressor 25-->?50 bid) for hypertension Romy to see in the morning to remove drain/discharge instructions. ? ? COPD (chronic obstructive pulmonary disease) (HCC) ? ? Diverticulosis of colon (without mention of hemorrhage) ? ? Family history of malignant neoplasm of gastrointestinal tract ? ? Obstructive chronic bronchitis with exacerbation (HCC) ? ? COPD ? Other and unspecified alcohol dependence, unspecified drinking behavior 02/07/2009 ? PVD (peripheral vascular disease) with claudication ([facility]) 06/09/2013 ? Rib pain 07/13/2009 ? Post right rib fractures. ? Right lower ext ischemia 06/15/2014 ? 58 year old white male with hx of COPD (active smoker) and HTN, direct admit for for RLE ischemia. ?Pt seen in clinic today with Helen Hyde, who noted the following: ? 58 yo male presents today for significant pain in R foot and lower leg, as well as discoloration. Girlfriend states his foot is black, this was a sudden change a week ago. He has known PAD, RLE more severe than LLE, took Pletal but it was ineffective. Constant burning pain, as well as throbbing, can't feel his toes, difficult to walk due to the pain. No relief with ibuprofen. He doesn't plan to quit smoking ?Patient transferred for further care 06/14/14 Heparin gtt, CTA with runoff, PVRs, carotid duplex. ?06/15/14 Plan for OR (fem endart and bilateral iliac stents). Echo today 06/16/2014 EF = 58 ? 5% Patient pre-opted for OR 06/17/2014 06/18/2014: Palpable PTs B/L Signals DPs, diet resumed, Plan to discharge patient home with not needs 06/19/2014. Wound care reviewed with patient and his significant other. ? Squamous cell carcinoma of neck 12/31/2012 ? TIA (transient ischemic attack) 2005? ? Tobacco use disorder ? ? Unspecified essential hypertension ? ? Essential hypertension ? Unspecified gastritis and gastroduodenitis without mention of hemorrhage 2000 ? Unspecified transient cerebral ischemia ? PAST?SURGICAL?HISTORY PAST SURGICAL HISTORY Procedure Laterality Date ? APPENDECTOMY ? 1990s ? [facility] ? CAROTID ENDARTERECTOMY Right 03/04/2018 ? COLONOSCOP W/ OR W/O BRSH SPEC ? 04/05/10 ? EGD W/O BRSH W/PEG/ENDOS ? 02-11-13 ? EGD W/O OR W/BRUSH/WASH ? ? EGD ? EGD W/O OR W/BRUSH/WASH ? 02-11-13 ? LAPAROSCOPIC CHOLEYCYSTECTOMY ? ? Cholecystectomy, lap ? LYMPH NODE BX EX DEEP ? 2010 ? Lt ear ? PAST SURGICAL HISTORY OF ? 01/28/2013 ? biopsy of left base of tongue ? PAST SURGICAL HISTORY OF ? 06/17/2014 ? revasc. ischemic lower limbs ? PAST SURGICAL HISTORY OF ? 09/27/2015 ? revasc. ischemic right leg ? ? ? CURRENT?MEDICATIONS ? Current Outpatient Medications: albuterol HFA (PROAIR HFA) 90 mcg/actuation inhaler Inhale 2 Puffs as instructed every 4 hours as needed for Wheezing/Shortness of Breath. budesonide-formoterol (SYMBICORT) 160-4.5 mcg/actuation inhaler Inhale 2 Puffs as instructed twice daily. clopidogrel (PLAVIX) 75 mg tablet Take 1 tablet by mouth once daily. ipratropium-albuterol (DUONEB) 0.5 mg-3 mg(2.5 mg base)/3 mL nebu Inhale 3 mL as instructed every 4 hours as needed (wheezing, shortness of breath). metoprolol tartrate, short acting, (LOPRESSOR) 25 mg tablet Take 1 tablet by mouth twice daily. atorvastatin (LIPITOR) 80 mg tablet Take 1 tablet by mouth once daily. amLODIPine (NORVASC) 5 mg tablet Take 1 tablet by mouth once daily. fluticasone (FLONASE) 50 mcg/actuation nasal spray Use 2 Sprays in each nostril once daily. Rinse mouth after use. ranitidine (ZANTAC) 150 mg tablet Take 1 tablet by mouth twice daily as needed. Take one (1) tablet twice a day. aspirin, enteric coated (ECOTRIN LOW STRENGTH) 81 mg EC tablet Take 1 tablet by mouth once daily. acetaminophen (TYLENOL) 325 mg tablet Take 2 tablets by mouth every 4 hours as needed for Pain or Fever (For fever greater than 39 degrees C or Headache). ? No current facility-administered medications for this visit.? ? ALLERGIES:?Patient has no known allergies. ? PERSONAL HISTORY:? SOCIAL?HISTORY Social History ??Socioeconomic History ?Marital status: Single ?Spouse name: Not on file ?Number of children: 1 ?Years of education: Not on file ?Highest education level: Not on file ??Social Needs ?Financial resource strain: Not on file ?Food insecurity - worry: Not on file ?Food insecurity - inability: Not on file ?Transportation needs - medical: Not on file ?Transportation needs - non-medical: Not on file ??Occupational History ?Not on file ??Tobacco Use ?Smoking status: Current Every Day Smoker ?Packs/day: 0.50 ?Years: 41.00 ?Pack years: 20.5 ?Types: Cigarettes ?Smokeless tobacco: Never Used ??Substance and Sexual Activity ?Alcohol use: Yes ?Alcohol/week: 3.0 oz ?Types: 2 Cans of Beer (12oz) per week ?Drug use: No ?Comment: per patient ?Sexual activity: Never ??Other Topics ?Concerns: ?Not on file ??Social History Narrative ?Not on file ?? ? FAMILY HISTORY:? FAMILY?HISTORY FAMILY HISTORY Problem Relation Age of Onset ? Coronary Artery Disease Father ? age 72, [place] ? Colon Cancer Father ? ? COPD Father ? ? Prostate Cancer Father ? ? Cancer Mother ?unknown ? Cancer Brother ?lung cancer, metastatic ? Cancer Brother ?throat cancer ? Stroke Sister ?brain aneurysm ? ? REVIEW OF SYMPTOMS: ??The review of systems data was entered by the nurse and reviewed by me ? Nursing Notes: Pantera Castillo ?01/22/2019 ?1:45 PM ?Signed REVIEW OF SYSTEMS: ?General:???The patient denies fatigue, denies weight loss, denies weight gain, denies feeling hot, and denies feelings of cold. ?Eyes: ?The patient denies glaucoma, denies eye injury/surgery, does not wear glasses or contacts. ?Ear/Nose/Throat: ?The patient denies allergies, denies hayfever, denies ear infections, and denies bloody noses. ?Cardiovascular: ?The patient denies chest pain, denies heart disease, denies high blood pressure,denies cardiac stent, denies prior heart attack, denies irregular heart beat, denies high cholesterol, ?denies poor circulation, denies heart failure, other cardiac issues, denies claudication, denies cold feet, denies peripheral arterial stent. ?Respiratory: ?The patient denies tuberculosis, denies pneumonia, denies frequent cough, denies pulmonary embolism, NOTES shortness of breath, and denies coughing up blood. ?Gastrointestinal: ?The patient denies difficulty swallowing, denies acid reflux, denies ulcers, denies vomiting, denies jaundice/hepatitis, denies gallbladder problems, denies black or tarry stools, denies hemorrhoids, denies bleeding from rectum, denies diverticulitis, denies constipation, denies diarrhea, denies loss of stool control, and NOTES hernias. ?Kidney/Bladder: ?The patient denies kidney stones, denies urine infections, and denies bloody urine. ?Skin: ?The patient denies a history of skin cancer, denies bleeding/changing moles, and denies a history of skin rash. ?Neurologic: ?The patient denies a history of epilepsy/convulsions, denies headaches, denies head/spinal injuries, and NOTES stroke/TIA. ?Psychiatric: ?The patient denies psychiatric medications, denies depression, and denies voices, denies substance abuse. ?Endocrine: ?The patient denies thyroid disorders, denies diabetes, and denies hormonal problems. ?Hematologic: ?The patient denies a history of bruising, denies bleeding, and denies anemia, denies blood clots. ?Infections: ?The patient denies a history of measles and mumps, denies rheumatic fever, and denies sexually transmitted diseases. ?Musculoskeletal: ?The patient denies back pain/injury, denies back problems, denies sciatica, denies knee/foot trouble, denies arthritis, or denies gout. ? ? When was patient's last Mammogram screening? N/A ? ?Last Colonoscopy: ? ? Pantera Castillo ? ? PHYSICAL EXAMINATION: ? General: ?The patient is 61 year old male, well nourished, well hydrated in no acute distress. ?The patient is oriented to time, place, and person. ? VITALS:?Blood pressure 144/72, pulse 72, temperature 36.9 ?C (98.4 ?F), temperature source Temporal Artery, weight 52.2 kg (115 lb), SpO2 93 %.?Body mass index is 18.01 kg/m?.? ? HEENT: ?Normal cephalic, ataumatic, pupils are equally round, sclera are anicteric, mucous membranes are moist, oropharynx is clear. ?Neck has no masses, asymmetry or lymphadenopathy. ?Thyroid is unremarkable. ? Respiratory: ?Coarse breath sounds-distant to percussion. ?Normal respiratory excursion and pattern. ? Cardiac: ?Examination is regular rate and rhythm. ? Abdominal exam: ?Soft, nontender, ?with no palpable masses. ?No hepatosplenomegaly. ?A moderate reducible right inguinal hernia, no left inguinal or umbilical hernias are noted ? Rectal exam: ?exam deferred ? Extremities: ?Significant muscle wasting in all extremities. ?Purplish discoloration of his nose and fingers consistent with distal tissue hypoxia and advanced peripheral vascular disease. ? ? ? Assessment ? IMPRESSION: right inguinal hernia ? PLAN: ? My plan is to perform a open right inguinal hernia repair with mesh. ?The planned surgical procedure was discussed extensively with the patient. ?The risks, benefits, anticipated outcomes and possible complications were mentioned. ?Earnest ibarraands that all hernia repair surgery has a chance of recurrence and/or chronic post operative pain. ?My staff has also explained the procedure in understandable terms and the patient was given the option to take printed material concerning the planned procedure. ?The patient had the opportunity to ask questions concerning the planned procedure. ?The patient freely consents to the planned procedure. ? ? ? We discussed how I usually recommend that All tobacco/nicotine use needs to be completely stopped at least 4 weeks prior to surgery and not used in any form for 8 weeks following surgery due to nicotine's prevention of appropriate wound healing??we discussed the rationale for this. ?The patient states he's had a previous floor of mouth cancer - and if he didn't stop smoking after this he won't stop smoking now! ?I will reluctantly plan to fix his hernia. ? Anticipated Surgical Procedure/ CPT Code: open right inguinal hernia repair with mesh - 79935-742 ? Anticipated Anesthetic: MAC with local ? Patient weight:??Blood pressure 144/72, pulse 72, temperature 36.9 ?C (98.4 ?F), temperature source Temporal Artery, weight 52.2 kg (115 lb), SpO2 93 %.?BMI: ?Body mass index is 18.01 kg/m?. ? Planned antibiotic: Ancef 2gm IVPB line construction superintendent to OR ? SCDs needed - Yes ? Head Insulation Board Saw Operator Needed - Yes ?? ? This note will be forwarded to Dr. Arpit Diaz MD. ? ? Diagnoses:?(K40.90) Right inguinal hernia ?(primary encounter diagnosis) (I63.9) Cerebrovascular accident (CVA), unspecified mechanism (HCC) ? Return to Clinic: The patient is instructed to follow-up with me?1 week postoperatively. ? Jerrod Valentin MD
[2019-02-04] VITALS (11 sets, daily range): BP systolic 59–150; BP diastolic 41–85; PULSE 40–72; RESP 14–18; TEMP 36.2–37.2; O2SAT 94–100; BMI 16.0
[2019-02-04 06:39] LABS: Hematocrit 42.5 % (40-54); Hemoglobin 14.2 g/dl (13.0-16.5); Mean Corp Hgb Conc 33.4 g/gl (32-36); Mean Corpuscular Hgb 29.5 pg (27.0-32.0); Mean Corpuscular Volume 88.2 fL (80-94); Mean Platelet Vol. 9.1 fl (6.2-12.0); Platelet Count 354 K/mm3 (150-450); RBC Distribution Width CV 16.3 % (11.6-14.6); RBC Distribution Width SD 52.3 fl (35.1-43.9); Red Blood Count 4.82 M/mm3 (4.6-6.2)
[2019-02-04 06:42] LABS: Scan Indicated on CBC? Y/N NO
[2019-02-04 06:56] LABS: Anion Gap 9 (5-15); BUN 9 mg/dL (7-18); BUN/Creat Ratio 12.2 RATIO (10-20); Calcium,Total 8.8 mg/dL (8.5-10.1); Chloride 101 mmol/L (98-107); Creatinine, Serum 0.74 mg/dL (0.70-1.30); EST Glomerular Filtration Rate 115 mL/min (>60); Est Glom Filt Rate - Afr Amer 139 mL/min (>60); Glucose 90 mg/dL (74-106); Potassium 3.9 mmol/L (3.5-5.1); Sodium Level 136 mmol/L (136-145)
--- NOTE | 2019-02-04 07:15 | HERN_PTH ---
PATIENT: MARIELLA JACOBSON LOC: [facility] [place] U#:[id number] AGE/SX: 63/M ROOM: RE02/04/[address]: Dr. Jerrod Valentin MD : 1955 BED: DIS: 02/04/2019 SPEC #: [id number] RECD: 02/04/19 10:13 STATUS: JAMISON RETony #: [id number] ABBIE: 02/04/19 07:[address]: Jerrod Valentin DEPT: SURGICAL PATHOLOGY RECD BY: Chuckie Sumner ENTERED: 02/04/19 10:57 SP TYPE: Hernia OTHR DR: Dr. Arpit Diaz MD Tissues: A - HERNIA B - Nerve, NOS Procedures: Surgery Specimen Level II HEADER OPERATION: Inguinal hernia with mesh PRE-OP DIAGNOSIS: Right inguinal hernia TISSUE SUBMITTED: A - Hernia sac, B - Nerves MICROSCOPIC DIAGNOSIS A. Inguinal hernia sac: Mesothelium-lined fibrous tissue with congestion, compatible with hernia sac. B. Nerves: Peripheral nerve, adipose tissue and skeletal muscle with recent stromal hemorrhage. CE:em 02/05/19 MICROSCOPIC DESCRIPTION Slides are reviewed. GROSS DESCRIPTION A - Received in fixative is one container labeled with the patient's name and designated hernia sac. The specimen consists of a caceres-pink portion of fibromembranous soft tissue measuring 8.5 x 1.7 x 0.6 cm. Grossly, no nodularity or secondary lesion is found. Core Layer Machine Operator sections are submitted in one cassette. B - Received in fixative is one container labeled with the patient's name and designated nerves. The specimen consists of a reddish-brown segment of soft tissue grossly compatible with nerve measuring 5.5 x 0.3 x 0.3 cm. A 0.4 cm area of thickening is noted near one end of the tissue segment. Core Layer Machine Operator sections are submitted in one cassette. / CE:em 02/04/19 TC:5 CPT: 28539 x2
[2019-02-04] MEDS: Cefazolin 2 GM in 0.9% Normal Saline 100 ML IV (07:17)
--- NOTE | 2019-02-04 08:58 | DCINST_ITS ---
Discharge Diet: Light diet - advance as tolerated Discharge Activity: Return to Normal Activity, May Drive - when you are no longer taking narcotic pain medications., May Shower - with the bandage in place 1-2 days after surgery. Lifting Restrictions: 20 pounds for 8 weeks. Additional Activity Instructions:: Climbing stairs is fine, walking is encouraged. Sitting in bed may be uncomfortable. Sitting up using your lateral muscles (sitting up sideways) is usually more comfortable. Do not drive, work heavy equipment of sign legal documents for 24 hours. If your hernia repair was an ingunial repair, you may have scrotal swelling, an ice pack and/or athletic support can provide more comfort. Pain medications may cause nausea, you should typically eat light foods as you take your pain medications. Pain medications may also cause constipation. If you have difficulty with this, discuss with your doctor. Call your doctor if your incision/area has: Continuous Slow Oozing, Sudden Increased Bleeding, Increased Pain/ Swelling, Increased Redness, Foul Smelling Discharge Call your doctor if you observe: Fever of 101 or Higher Suture Line Care: Avoid Pulling/Pushing, Avoid Pinching/Bending Additional Dressing/Incision Instructions:: Leave the operative bandage on for 2-3 days. When you remove the bandage, leave the steri-strips on place until your follow up appointment or they fall off. Allergies/Adverse Reactions: Allergies No Known Allergies Allergy (Verified 01/28/19 10:15) Medications to take at Discharge Fluticasone Propionate [Flonase Allergy Relief] 1 spray NS DAILY 09/26/15 Budesonide/Formoterol 160/4.5 [Symbicort 160/4.5 Mcg Inhaler (SP)] 2 puff INHALATION BID 09/16/17 Albuterol IH (ProAir) [Proair Hfa] 1 - 2 puff INHALATION Q2H PRN PRN #1 inhaler 09/18/17 Amlodipine [Norvasc] 10 mg PO DAILY #30 tab 09/18/17 Atorvastatin Calcium 80 mg PO QHS #30 tab 09/18/17 Aspirin E.C. [Ecotrin] 81 mg PO DAILY 04/22/18 Metoprolol Tartrate 25 mg PO BID 04/22/18 Clopidogrel Bisulfate [Plavix] 75 mg PO DAILY #30 tab 04/24/18 Primary Care Physician: Arpit Diaz MD [Primary Care Provider] - Test Results: Test results from this visit will be discussed in further detail at your follow- up appointment, if applicable. Please Follow Up With: Jerrod Valentin MD - [phone] When: Plan to have a follow up appointment in 7 days. Call to schedule.
[2019-02-04] MEDS: Bupivacaine Mpf 0.5% 30 ML VIAL (08:59)
--- NOTE | 2019-02-04 09:01 | PCM.OPRPT ---
Report of Operation Date of Procedure: 02/04/19 Pre-Operative Diagnosis: right inguinal hernia Post-Operative Diagnosis: right inguinal hernia, indirect, extensive scarring and weak floor Surgery/Procedure Performed:: right inguinal hernia repair with mesh plug - Bard Mesh -medium plug - Ref- [id number] lot [id number] Exp - 07/16/2022 police guard: Colleen Navarro Type of Anesthesia:: Local MAC Anesthesiologist: Alec Mejia - ASA3 Specimen's removed: hernia sac, inguinal nerves x 2 Estimated Blood Loss (mL): 10 Fluids Replaced: 250 Description of Procedure: The patient was brought to the operating suite. Sign in was performed verifying patient, site, procedure, position, and DVT prophylaxis with SCDs. Patient received 2 g Ancef antibiotic prophylaxis. Following induction of IV sedation, the patient?s right inguinal region was prepped and draped in the usual fashion. Timeout was performed verifying patient, site, position. Local anesthetic was injected at the site of the anterior superior iliac spine for a regional block. The 50-50 mixture of lidocaine and Marcaine was then injected along the planned course of the skin incision. A linear incision was made and dissection carried down to the external oblique aponeurosis. Traversing veins ligated with 3-0 Vicryl ties and divided. Local anesthetic was then injected into the inguinal canal. A clean scalpel blade was used to open the lower canal in the direction of the fibers and a Metzenbaum scissor was used to further dissect and open the canal. the patient had 2 previous right femoral to distal vascular anastomoses. These procedures dilated the anal canal and there was significant scarring within the inguinal canal and the mid aspect of the inguinal ligament was disrupted and nonexistent. Dissection was carried out clearly delineated dissecting the following structures Care was taken to avoid injury to the ilioinguinal nerveand the iliohypogastric nerve which were initially dissected and placed over the superior leaf of the external oblique aponeurosis. Following this, the spermatic cord was surrounded at the level of the pubic tubercle and brought up in the operative field with a Marlon drain. Dissection was continued up to the internal ring clearing the cremasteric fibers. The patient was noted to have a very weak floor with a palpable pubic rami but otherwise no true direct inguinal hernia. Dissection of the cord was undertaken which demonstrated a large indirect inguinal hernia. a medium mesh plug was placed into the indirect defect and secured with interrupted 0 Prolene sutures Onlay mesh was secured using a Bard keyhole shaped mesh secured at the level of the pubic tubercle and run from Mauricio?s ligament transitioning to the ilioinguinal ligament inferiorly using an 0 Prolene suture. Next an 0 Prolene suture was used to secure the mesh to the transversus arch. The tails of the mesh were placed around the spermatic cord to create a new internal ring and the tails closed with a running 0 Prolene suture. The spermatic cord and the ilioinguinal nerve returned to its anatomic position. The external oblique was closed with a running 0 Vicryl suture. Subcutaneous fat was closed with interrupted 3-0 Vicryl suture. Skin was closed with a running 4-0 Monocryl subcuticular sutures. Steri-Strips and bandages were applied. The patient was brought to recovery room in stable condition. - Admit VTE Documentation VTE Present on Admission: No VTE Mechan Device Prophylaxis: SCD's VTE Pharm Prophylaxis ordered?: No
[2019-02-04] MEDS: oxyCODONE 5 MG Tablet PO (10:34)
== END 2019-02-04 11:45 | disposition home or self-care (01) ==
LOC: SDC 05:42 → AC 05:43
PROVIDERS: Anesthesiology; Family Provider Internal Medicine; PCP Internal Medicine; Referring Provider Surgery; Visit Provider Surgery
PROC: (CPT 49505; principal; 2019-02-04 07:00)
DX: K40.90 Unilateral inguinal hernia, without obstruction or gangrene, not specified as recurrent (principal); J44.9 Chronic obstructive pulmonary disease, unspecified; I10 Essential (primary) hypertension; E78.00 Pure hypercholesterolemia, unspecified; I73.9 Peripheral vascular disease, unspecified; J30.9 Allergic rhinitis, unspecified; F17.210 Nicotine dependence, cigarettes, uncomplicated; Z79.82 Long term (current) use of aspirin; Z79.899 Other long term (current) drug therapy; Z85.818 Personal history of malignant neoplasm of other sites of lip, oral cavity, and pharynx; Z86.73 Personal history of transient ischemic attack (TIA), and cerebral infarction without residual deficits
CPT/HCPCS: 00830; 49505; 36415; 80048; 85027; 88302; J7120; C1781

== ENCOUNTER 2020-03-02 20:02 | Emergency (ER) | payer MEDICARE, MEDICAID, SELFPAY ==
[2019-02-04 06:04] VITALS: BMI 16.0
[2020-03-02] VITALS (7 sets, daily range): BP systolic 161–183; BP diastolic 88–90; PULSE 82–109; RESP 18–30; TEMP 36.6–37.2; O2SAT 95–97; BMI 18.0
--- NOTE | 2020-03-02 20:24 | EKG12_ITS ---
Test Reason : SOB Blood Pressure : / mmHG Vent. Rate : 092 BPM Atrial Rate : 092 BPM P-R Int : 140 ms QRS Dur : 068 ms QT Int : 342 ms P-R-T Axes : 084 082 079 degrees QTc Int : 422 ms Normal sinus rhythm Septal infarct , age undetermined Abnormal ECG Confirmed by LUCY MELGOZA, BETHEL ([id number]), editor continuity and script AARON BOSCH ([id number]) on 03/07/2020 10:55:06 AM Referred By: SHAGGY Confirmed By:BETHEL AYALA MD
--- NOTE | 2020-03-02 20:25 | RAD_ITS ---
STUDY: X-RAY CHEST REASON FOR EXAM: Male, 64 years old. Shortness of breath, cough. TECHNIQUE: Single frontal view of the chest. COMPARISON: April 22, 2018 FINDINGS: Lungs are hyperaerated. The lungs are clear and expanded. There is no demonstrated pleural abnormality. Normal size heart. Normal mediastinum and christie. Normal visualized pulmonary arteries. Normal visualized aortic arch and descending thoracic aorta. Normal visualized thoracic spine. Multiple old rib fractures on the right. There is no demonstrated abnormality of the visualized soft tissue structures of the upper abdomen. RAD/Chest 1 View (Portable) IMPRESSION: COPD Electronically Signed: Paramjit Dacosta MD at 21:27 EDT , Service support ,
--- NOTE | 2020-03-02 20:31 | ED.VISSUMM ---
- ER Visit Summary Date of Service: 03/02/20 Chief Complaint: Shortness of breath History of Present Illness: The patient is a 64 M who presents with shortness of breath that has been getting worse over the past 3 days. Patient states he has a history of COPD and asthma. Patient admits to a headache. Patient states nothing makes his breathing better or worse. Patient admits to some rhinorrhea and a cough. Patient denies any sputum production. Patient denies any fevers or chills. Patient denies any chest pain. Patient states he does feel his heart racing at times. Patient also admits to a headache. Patient denies any nausea or vomiting. Physical Examination: Vital signs are stable except for tachypnea of 30. Patient is afebrile. Patient is in no acute distress. Oral mucosa is pink and moist. Oropharynx is clear. Neck is supple. Trachea is midline. There is no JVD. Heart was regular rate and rhythm. Lungs were diminished bilaterally. There is adequate respiratory effort noted. Abdomen is soft. Bowel sounds are normal. There is no tenderness. Cranial nerves II through XII are intact. There are no focal motor or sensory deficits noted. Extremities are intact. There is no calf tenderness or edema. Test Results: Chest x-ray was obtained. There is evidence of COPD. There is no acute cardiopulmonary process. EKG showed normal sinus rhythm with a rate of 92. There are no acute ST or T wave changes. There is an old septal infarct. This was unchanged compared to previous EKG dated 04/22/2018. CBC and comprehensive metabolic profile were essentially within normal limits. COVID swab was obtained and is pending. Emergency Department Course and Treatment: Patient was given a DuoNeb aerosol here. Patient is feeling better on reevaluation. Patient states he wants to go home. Patient does not want to wait for the COVID results. Patient was advised that if his COVID was positive I would recommend admitting him to the hospital. Patient does not want to be admitted to the hospital and wants to go home. Patient will be discharged home. Patient was instructed to follow-up with his primary care physician in 3 to 5 days. Patient was instructed to return if worse in any way. Patient understood and was agreeable with the plan. All questions were answered. Disposition: Discharge home Impression: 1. COPD exacerbation This note was generated with [employer] software. It may contain incorrect words, spelling, and punctuation that were not noted in review of the chart prior to signing ED Disposition - Plan for ED Patient: Disposition: Home or Assisted Living Diagnosis: COPD exacerbation Instructions: ED COPD Flare Referrals: Arpit Diaz MD [Primary Care Provider] - 3-5 Days
[2020-03-02] MEDS: Ipratropium/Albuterol Sulfate 3 ML AMPUL.NEB INHALATION (20:45)
[2020-03-02 21:00] LABS: Absolute Lymphocyte Count 1.21 X10^3/uL (0.83-4.51); Absolute Neutrophil Count 3.1 X10^3/uL (2.0-7.7); Basophil# 0.04 X10^3/uL; Basophil% 0.7 % (0-1); Eosinophil# 0.19 X10^3/uL; Eosinophils% 3.5 % (0-5); Hematocrit 41.2 % (40-54); Hemoglobin 13.5 g/dL (13.0-16.5); Lymphocyte # 1.21 X10^3/ul (4.0); Lymphocyte % 22.4 % (19-41); Mean Corp Hgb Conc 32.8 g/dL (32-36); Mean Corpuscular Hgb 30.1 pg (27.0-32.0); Mean Platelet Vol. 9.3 fl (6.2-12.0); Monocyte# 0.82 X10^3/uL; Monocyte% 15.2 % (0-10); NRBC Flagged by Analyzer 0 % (0-5); Neutrophil # 3.11 X10^3/uL (2.7-7.7); Neutrophil % 57.6 % (47-70); Platelet Count 232 K/mm3 (150-450); RBC Distribution Width CV 15.5 % (11.6-14.6); RBC Distribution Width SD 52.2 fl (35.1-43.9); Red Blood Count 4.48 M/mm3 (4.6-6.2); White Blood Count 5.4 K/mm3 (4.4-11.0)
[2020-03-02 21:09] LABS: ALB/GLOB Ratio 0.9 RATIO (0.9-2.4); AST(SGOT) 15 U/L (15-37); Alanine Aminotransfer ALT/SGPT 19 U/L (16-61); Albumin, Serum 3.5 g/dL (3.2-5.0); Alkaline Phosphatase 85 U/L (45-117); Anion Gap 4 (5-15); BUN 7 mg/dL (7-18); BUN/Creat Ratio 9.5 RATIO (10-20); Calcium,Total 8.8 mg/dL (8.5-10.1); Chloride 97 mmol/L (98-107); Creatinine, Serum 0.74 mg/dL (0.70-1.30); EST Glomerular Filtration Rate 114 mL/min (>60); Est Glom Filt Rate - Afr Amer 138 mL/min (>60); Estimated Creatinine Clearance 69.68 ml/min; Globulin 3.7 g/dL (2.2-4.2); Glucose 100 mg/dL (74-106); Potassium 3.9 mmol/L (3.5-5.1); Protein, Total 7.2 g/dL (6.4-8.2); Sodium Level 133 mmol/L (136-145)
[2020-03-02 21:45] LABS: Lactic Acid 0.8 mmol/L (0.4-1.9)
== END 2020-03-02 23:08 | disposition home or self-care (01) ==
PROVIDERS: Emergency Provider Emergency Medicine; PCP Internal Medicine
DX: J44.1 Chronic obstructive pulmonary disease with (acute) exacerbation (principal); J34.89 Other specified disorders of nose and nasal sinuses; R51 Headache; Z72.0 Tobacco use; Z86.73 Personal history of transient ischemic attack (TIA), and cerebral infarction without residual deficits; Z85.72 Personal history of non-Hodgkin lymphomas
CPT/HCPCS: 36415; 71045; 80053; 83605; 85025; 87040; 87635; 93005; 94640; 99285; G2023; A4216; U0003

== ENCOUNTER 2020-05-05 18:40 | Inpatient (IN) | payer MEDICARE, MEDICAID, SELFPAY ==
[2020-03-02 20:03] VITALS: BMI 18.0
[2020-05-05] VITALS (15 sets, daily range): BP systolic 93–184; BP diastolic 76–110; PULSE 103–155; RESP 12–38; TEMP 36.3–37.2; O2SAT 94–100; BMI 16.0; BMI 15.7
--- NOTE | 2020-05-05 18:43 | EKG12_ITS ---
Test Reason : TACHYCARDIA Blood Pressure : / mmHG Vent. Rate : 106 BPM Atrial Rate : 106 BPM P-R Int : 140 ms QRS Dur : 068 ms QT Int : 348 ms P-R-T Axes : 080 078 064 degrees QTc Int : 462 ms Sinus tachycardia Otherwise normal ECG When compared with ECG of 05-MAY-2020 19:43, No significant change was found Confirmed by LUCY MELGOZA, BETHEL ([id number]), telegraph editor AARON BOSCH ([id number]) on 05/17/2020 12:49:50 PM Referred By: AMY Confirmed By:BETHEL AYALA MD
--- NOTE | 2020-05-05 18:43 | RAD_ITS ---
STUDY: X-RAY CHEST REASON FOR EXAM: Male, 64 years old. INCREASED SOB X4 HOURS. ARRIVES ON CPAP. TECHNIQUE: Frontal view COMPARISON: 03/02/2020 FINDINGS: The lungs are hyperaerated. Focal right upper lobe probable scarring. Normal size heart. Normal mediastinum and christie. Normal visualized pulmonary arteries. Calcified aortic arch and descending thoracic aorta. Normal visualized thoracic spine. Old right rib fractures. There is no demonstrated abnormality of the visualized soft tissue structures of the upper abdomen. RAD/Chest 1 View (Portable) IMPRESSION: Hyperaeration. Probable right upper lobe focal scarring. Electronically Signed: Troy Tolliver DO at 20:03 EDT Tel [phone], Service support ,
[2020-05-05] MEDS: MethylPREDNISolone 125 MG/2 ML Vial IV (18:57)
--- NOTE | 2020-05-05 19:13 | ED.VIS.GEN ---
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 Reported sudden onset 4 hours prior to arrival with shortness of breath and wheezing. History of COPD. Reported patient was having respiratory distress therefore immediately placed on a BiPAP, pulse ox by EMS in the squad was 100%. He gave himself DuoNeb treatment additional treatment was given by EMS. He denies cough symptoms or fevers. He denies history of diabetes, no steroids were given. Reported he was slightly tachycardic on his way in along with concerns for hypotension, patient was seen immediately upon arrival. From records history of throat cancer peripheral artery disease, COPD, hypertension, hyperlipidemia. Prior similar symptoms: Yes Past Medical History - Allergies and Home Meds Allergies/Adverse Reactions: Allergies No Known Allergies Allergy (Verified 05/05/20 19:06) Past Medical History: - - Hypertension, hyperlipidemia, COPD, coronary disease, peripheral artery disease Surgical History: - - Carotid Endarterectomy Smoking Status: Current every day smoker - Family History Paternal Family History: Reports: High Cholesterol, Heart Disease, Hypertension Maternal Family History: Reports: Cancer - His mother had colon cancer Review of Systems General: Denies: Chills, Fever, Sweats Eyes: Denies: Visual changes - bilaterally, Diplopia ENT: Denies: Rhinorrhea, Sore throat Cardiovascular: Denies: Chest pain, Palpitations Respiratory: Reports: Dyspnea. Denies: Cough, Dyspnea on exertion Gastrointestinal: Denies: Abdominal pain, Nausea, Vomiting, Diarrhea, Melena, Hematochezia Genitourinary: Denies: Dysuria, Hematuria, Frequency Musculoskeletal: Denies: Back pain, Extremity Pain Skin: Denies: Rash, Wounds Neurological: Denies: Headache, Weakness, Numbness Physical Exam Vital Signs/Narrative: Vital Signs Temp Pulse Resp BP Pulse Ox 05/05/20 18:50 98.9 F 155 H 38 H 184/110 H 95 05/05/20 18:46 98.9 F 155 H 32 H 161/96 H 95 05/05/20 18:41 98.9 F 155 H 32 H 161/96 H 95 Inital Vital Signs reviewed: Yes General: Cachectic, - - On a CPAP, speaking in short sentences. Head: Normocephalic, Atraumatic Eyes: Perrl, EOMI ENT: Moist mucous membranes, No rhinorrhea Neck: Supple, Nontender Cardiovascular: Regular rhythm, No murmurs, Tachycardia Respiratory: Chest nontender, Retractions, - - Patient diminished breath sounds at bases no wheezing, however is using accessory muscles. Abdomen: Soft, Nontender, Nondistended, Normal bowel sounds Back: Nontender, Normal Inspection Extremities: Nontender, No edema Skin: Normal color, No rash Neurological: Alert, Oriented x3, Cranial nerves II-XII grossly intact, Normal Strength, Normal Sensation Psychological: Normal affect, Normal Mood Diagnostic/Tx/Re-eval Clinical Impression(s) from Imaging Studies Chest X-Ray 05/05/20 18:43 IMPRESSION: Hyperaeration. Probable right upper lobe focal scarring. Electronically Signed: Troy Tolliver DO at 20:03 EDT Tel [phone], Service support , - EKG Initial EKG Interpretation: Sinus Rhythm - Sinus rate of 120, no ST or T wave changes. - Medical Decision Making Patient brought in tachypneic tachycardic using accessory muscles on a CPAP. He was alert and oriented, able to follow commands however speaking in short sentences. He was transitioned over to the BiPAP with diminished breath sounds. He tolerated this much better. Sepsis protocol was initiated due to his tachycardia and tachypnea. His breathing and heart rate improved with BiPAP use given additional fluids due to tachycardia. He was not hypoxic. He is afebrile. Labs started, noting a white count of 20. Chest x-ray negative for pneumonia. He is covered with Rocephin and Zithromax for COPD coverage. His significant other did report to me that he has been coughing for which he denied initially. He still has tobacco history. He has history of throat cancer years ago with no current treatment. Initial informed of difficulty with additional blood work with poor IV right wrist. I did place right EJ with no difficulties for additional blood draw and access for antibiotics. Patient now stable on a BiPAP however tachycardic to 120s improved from his arrival. Clinically improving. Steroids was given initially for COPD. I spoke with hospitalist for admission to ICU. - Critical Care Time Critical care time (excluding procedures): 30-74 minutes, Discussing w/Patient &/or Family/Facilities Maintenance Engineer, Arranging Admission or Transfer ED Disposition - Plan for ED Patient: Disposition: Acute Care Hospital [facility] Diagnosis: COPD (chronic obstructive pulmonary disease) with emphysema, Respiratory failure
[2020-05-05] MEDS: 0.9% Normal Saline 1,000 ML 999 ML IV (19:22)
[2020-05-05 20:01] LABS: Absolute Lymphocyte Count 1.16 X10^3/uL (0.83-4.51); Absolute Neutrophil Count 17.4 X10^3/uL (2.0-7.7); Basophil% 0.5 % (0-1); Eosinophil# 0.02 X10^3/uL; Eosinophils% 0.1 % (0-5); Hematocrit 50.3 % (40-54); Hemoglobin 15.5 g/dL (13.0-16.5); Lymphocyte # 1.16 X10^3/ul (4.0); Lymphocyte % 5.7 % (19-41); Mean Corp Hgb Conc 30.8 g/dL (32-36); Mean Corpuscular Hgb 30.2 pg (27.0-32.0); Mean Corpuscular Volume 98.1 fL (80-94); Mean Platelet Vol. 10.7 fl (6.2-12.0); Monocyte% 7.3 % (0-10); NRBC Flagged by Analyzer 0 % (0-5); Neutrophil % 85.1 % (47-70); Platelet Count 203 K/mm3 (150-450); RBC Distribution Width CV 16.5 % (11.6-14.6); RBC Distribution Width SD 59.5 fl (35.1-43.9); Red Blood Count 5.13 M/mm3 (4.6-6.2); White Blood Count 20.4 K/mm3 (4.4-11.0)
--- NOTE | 2020-05-05 20:21 | PCM.HP.STD ---
Problem List (1) Respiratory failure Status: Acute (2) COPD (chronic obstructive pulmonary disease) with acute bronchitis Status: Acute (3) Right inguinal hernia Status: Chronic (4) Peripheral arterial disease Status: Chronic (5) Throat cancer Status: Chronic (6) Dyslipidemia Status: Chronic (7) Hypertension Status: Chronic (8) H/O: stroke Status: Chronic (9) COPD (chronic obstructive pulmonary disease) with emphysema Status: Acute (10) Acute respiratory failure with hypoxia Status: Inactive (11) Ischemic stroke Status: Inactive Comment: Recent about 2-3 weeks ago History of Present Illness Date of Admission: 05/05/20 Chief Complaint: SOB The patient is a 64 year old M with a significant history of COPD; throat cancer status post chemotherapy; and PAD who presents to the emergency department with a sudden onset shortness of breath that started about 4 hours prior to presentation while while watching TV. Although patient had a dry cough the day before presentation on the day of presentation patient did not have any cough. He was wheezing at home. Because of respiratory distress patient was placed on CPAP by paramedics. At the emergency department patient was transitioned from CPAP to BiPAP and was with noted to have an improvement in his respiratory distress. Before patient left home he had a breathing treatment. Also paramedics gave him a breathing treatment enroute to the hospital. Because of elevated white counts, tachycardia and tachypnea patient was started on antibiotics. Chest x-ray did not show infiltrate. Past Medical History Past Medical History (Chronic Problems): Chronic Problems Right inguinal hernia (Chronic) Peripheral arterial disease (Chronic) Throat cancer (Chronic) Dyslipidemia (Chronic) Hypertension (Chronic) H/O: stroke (Chronic) Allergies No Known Allergies Allergy (Verified 05/05/20 19:06) Home Medications: Ambulatory Orders Medication Instructions Recorded Fluticasone Propionate [Flonase 1 spray NS DAILY 09/26/15 Allergy Relief] Budesonide/Formoterol 160/4.5 2 puff INHALATION BID 09/16/17 [Symbicort 160/4.5 Mcg Inhaler (SP)] Albuterol IH (ProAir) [Proair Hfa] 1 - 2 puff INHALATION Q2H PRN PRN 09/18/17 #1 inhaler Amlodipine [Norvasc] 10 mg PO DAILY #30 tab 09/18/17 Atorvastatin Calcium 80 mg PO QHS #30 tab 09/18/17 Aspirin E.C. [Ecotrin] 81 mg PO DAILY 04/22/18 Metoprolol Tartrate 25 mg PO BID 04/22/18 Clopidogrel Bisulfate [Plavix] 75 mg PO DAILY #30 tab 04/24/18 Surgical History: appendectomy, cholecystectomy, - - Carotid Endarterectomy Smoking Status: Current every day smoker Tobacco Use: Cigarettes - *Family History Paternal History Items: Cancer, High Cholesterol, Heart Disease, Hypertension, Pulmonary Disease Maternal History Items: Cancer - His mother had colon cancer Review of Systems Constitutional: Reports: Fatigue. Denies: Chills, Fever, Weight Change HEENT: Denies: Head Aches, Sinus Congestion, Sinus Drainage Cardiovascular: Denies: Chest Pain, Palpitations Respiratory: Reports: Cough - Chronic and on day before presentation; but not on the day of presentation., Shortness of Breath, Shortness of breath at rest, Wheezing. Denies: Sputum production Gastrointestinal: Denies: Abdominal Pain, Nausea, Vomiting Genitourinary: Denies: Dysuria Musculoskeletal: Denies: Joint Pain, Joint Tenderness Skin: Denies: Rash, Wounds Neurological: Denies: Numbness, Tingling, Focal weakness Psychiatric: Denies: Anxiety, Depression, Homicidal Ideations, Suicidal Ideations Hematologic/ Lymphatic: Denies: Easy Bruising, Easy Bleeding VTE Information - Inpt Only VTE Present on Admission: No VTE Mechan Device Prophylaxis: SCD's VTE Pharm Prophylaxis ordered?: No Patient Problems: Active and Suspected Problems Respiratory failure (Acute) COPD (chronic obstructive pulmonary disease) with emphysema (Acute) - Physical Exam Vitals/I&O's: Vital Signs Temp Pulse Resp BP Pulse Ox 98.9 F 124 H 27 H 158/88 H 95 05/05/20 18:50 05/05/20 19:53 05/05/20 19:53 05/05/20 19:53 05/05/20 19:53 Oxygen Delivery Method Bi-pap Weight: 46.4 kg Body Mass Index (BMI) 16.0 Finger Stick Blood Glucose 103 General: Alert, Oriented x3, Cooperative, - - Cachectic HEENT: Atraumatic, PERRLA, EOMI, Normocephalic Neck: Supple, No JVD, Negative Carotid Bruits Lungs: Diminished, Rhonchi, Short of Breath, Tachypneic, Using Accessory Muscles, Wheezes Cardiovascular: Normal S1, Normal S2, No murmurs, Tachycardic Abdomen: Bowel Sounds Present, Soft, Non Tender Extremities: No edema, Capillary Refill Less than 3 Seconds Skin: No rashes, No breakdown Musculoskeletal: No Tenderness to Palpation of Joints or Extremities Neurological: Cranial nerves II-XII grossly intact Psych/Mental Status: Normal Affect, Appropriate Laboratory Results 05/05/20 18:40: COVID-19 (RENÉ) Pending 05/05/20 19:35: WBC 20.4 H, RBC 5.13, Hgb 15.5, Hct 50.3, MCV 98.1 H, MCH 30.2, MCHC 30.8 L, RDW Std Deviation 59.5 H, RDW Coeff of Chao 16.5 H, Plt Count 203, MPV 10.7, Immature Gran % (Auto) 1.300 H, Neut % (Auto) 85.1 H, Lymph % (Auto) 5.7 L, [place] % (Auto) 7.3, Eos % (Auto) 0.1, Baso % (Auto) 0.5, Absolute Neuts (auto) 17.4 H, Absolute Lymphs (auto) 1.16, Nucleated RBC % 0 05/05/20 19:35: Sodium Pending, Potassium Pending, Chloride Pending, Carbon Dioxide Pending, Anion Gap Pending, BUN Pending, Creatinine Pending, Est GFR (MDRD) Af Amer Pending, Est GFR (MDRD) Non-Af Pending, BUN/Creatinine Ratio Pending, Glucose Pending, Calcium Pending, Total Bilirubin Pending, AST Pending, ALT Pending, Alkaline Phosphatase Pending, Troponin I Pending, Total Protein Pending, Albumin Pending Assessment/Plan All Active Problems Respiratory failure (Acute) COPD (chronic obstructive pulmonary disease) with acute bronchitis (Acute) COPD (chronic obstructive pulmonary disease) with emphysema (Acute) The patient is a 64 year old M with a significant history of COPD; throat cancer status post chemotherapy; and PAD who presents emergency department with a sudden onset shortness of breath; wheezing; and respiratory distress requiring non invasive pressure ventilation. Acute respiratory failure secondary to COPD exacerbation. Actual chest x-ray image independently reviewed showed hyper inflation. Per radiologist interpretation hyperaeration; probable right upper lobe focal scarring. Transition from CPAP to BiPAP at the emergency department. BiPAP continued Patient had a breathing prior to presentation and was given additional breathing treatment by paramedics. Placed on scheduled DuoNeb. Received Solu-Medrol IV at emergency department and continued. Ceftriaxone and azithromycin ordered at emergency department and continued. Guaifenesin p.o. PRN. Review of medical department labs showed leukocytosis with a white count of 20.4 and bandemia of 1.3%. Of note patient is not on home systemic steroids. Follow blood cultures obtained at emergency department. Lactic acid and BMP is pending. Inspector Purchased Parts consult Protein calorie malnutrition BMI of 16.0 Patient is currently n.p.o. except meds since he is on BiPAP. Dietitian recommendations. Tobacco abuse Counseled Nicotine patch prescribed. DVT prophylaxis Subcutaneous Lovenox. Inpatient E&M: 36048 Init Hosp L3
[2020-05-05 20:36] LABS: Allen Test Positive; Base Excess -3 mmol/L (-2 to +2); Bicarbonate 23.1 mmol/L (22-26); Blood Gas Specimen Type ART; FI02 21; O2 Delivery Device BiPAP; PO2 81 mmHG (75-100); SITE R Radial; SO2 95 % (95-99); Total Carbon Dioxide 24 mmol/L; pCO2 42.5 mmHg (35-45); pH 7.34 (7.35-7.45)
--- NOTE | 2020-05-05 20:40 | CPS ---
Pt.'s improved significantly since being placed on BiPAP. FiO2 decreased to 21% (room air) due to oxygenation demands being met. PEEP of 10 still be used to keep alveoli recruited.
[2020-05-05] MEDS: Ceftriaxone 1 GM/50 ML BAG IV (20:46)
[2020-05-05 21:14] LABS: ALB/GLOB Ratio 1.1 RATIO (0.9-2.4); AST(SGOT) 22 U/L (15-37); Alanine Aminotransfer ALT/SGPT 25 U/L (16-61); Albumin, Serum 3.7 g/dL (3.2-5.0); Alkaline Phosphatase 88 U/L (45-117); Anion Gap 12 (5-15); BUN 13 mg/dL (7-18); BUN/Creat Ratio 17.5 RATIO (10-20); Calcium,Total 8.7 mg/dL (8.5-10.1); Chloride 102 mmol/L (98-107); Creatinine, Serum 0.74 mg/dL (0.70-1.30); EST Glomerular Filtration Rate 113 mL/min (>60); Est Glom Filt Rate - Afr Amer 137 mL/min (>60); Estimated Creatinine Clearance 67.93 ml/min; Globulin 3.4 g/dL (2.2-4.2); Glucose 127 mg/dL (74-106); Potassium 4.8 mmol/L (3.5-5.1); Protein, Total 7.1 g/dL (6.4-8.2); Sodium Level 137 mmol/L (136-145)
[2020-05-05 21:26] LABS: Lactic Acid 1.5 mmol/L (0.4-1.9)
--- NOTE | 2020-05-05 21:35 | NURSING ---
2125: Pt transferred into room ICU 02 in stable conditioner. Patient belongings with patient including clothing.
[2020-05-05] MEDS: Ipratropium/Albuterol Sulfate 3 ML AMPUL.NEB INHALATION (22:00)
[2020-05-06] VITALS (23 sets, daily range): BP systolic 114–174; BP diastolic 68–108; PULSE 85–109; RESP 16–26; TEMP 36.3–37.3; O2SAT 93–99; BMI 15.7
[2020-05-06 05:00] LABS: Absolute Lymphocyte Count 0.69 X10^3/uL (0.83-4.51); Absolute Neutrophil Count 15.3 X10^3/uL (2.0-7.7); Basophil# 0.02 X10^3/uL; Basophil% 0.1 % (0-1); Hematocrit 40.6 % (40-54); Hemoglobin 13.1 g/dL (13.0-16.5); Lymphocyte # 0.69 X10^3/ul (4.0); Lymphocyte % 4.2 % (19-41); Mean Corp Hgb Conc 32.3 g/dL (32-36); Mean Corpuscular Hgb 29.6 pg (27.0-32.0); Mean Corpuscular Volume 91.6 fL (80-94); Monocyte% 1.8 % (0-10); NRBC Flagged by Analyzer 0 % (0-5); Neutrophil % 93.3 % (47-70); Platelet Count 241 K/mm3 (150-450); RBC Distribution Width SD 54.3 fl (35.1-43.9); Red Blood Count 4.43 M/mm3 (4.6-6.2); White Blood Count 16.4 K/mm3 (4.4-11.0)
[2020-05-06 05:13] LABS: Anion Gap 6 (5-15); BUN 13 mg/dL (7-18); BUN/Creat Ratio 16.4 RATIO (10-20); Calcium,Total 8.6 mg/dL (8.5-10.1); Chloride 99 mmol/L (98-107); Creatinine, Serum 0.79 mg/dL (0.70-1.30); EST Glomerular Filtration Rate 105 mL/min (>60); Est Glom Filt Rate - Afr Amer 127 mL/min (>60); Estimated Creatinine Clearance 62.39 ml/min; Glucose 132 mg/dL (74-106); Potassium 4.7 mmol/L (3.5-5.1); Sodium Level 134 mmol/L (136-145)
[2020-05-06] MEDS: 0.9% Saline Lock 10 ML Syringe IV ×2 (06:43→15:37)
--- NOTE | 2020-05-06 07:00 | PCM.CONS.PUL ---
Problem List (1) Respiratory failure Status: Acute Qualifiers: Chronicity: acute Respiratory failure complication: hypoxia Qualified Code(s): J96.01 - Acute respiratory failure with hypoxia (2) COPD (chronic obstructive pulmonary disease) with acute bronchitis Status: Acute (3) Peripheral arterial disease Status: Chronic (4) Throat cancer Status: Chronic (5) Dyslipidemia Status: Chronic (6) Hypertension Status: Chronic (7) Ischemic stroke Status: Inactive Comment: Recent about 2-3 weeks ago Reason for Consult Date of Consultation: 05/06/20 Reason for Consultation: Respiratory failure History of Present Illness: The patient is a 64 year old M, with past medical history listed below, who presented with [facility] on 05/05/2020 secondary to acute worsening of shortness of breath on the day of admission. On direct questioning, patient states he has not felt well for almost a week, but approximately 4 hours prior to presentation started to have acute worsening. EMS was called and placed the patient on CPAP therapy. Patient's oxygenation improved following noninvasive therapy along with a DuoNeb. Patient denied any fevers, cough, chest pain, nausea or vomiting. No aspiration was reported. EMS had reported tachycardia with some hypotension. On arrival to the ER, patient was noted to be tachycardic, but in normal sinus rhythm without ST segment changes. Patient had significant respiratory distress, but was reportedly improving with noninvasive therapy. Laboratory work-up was notable for a leukocytosis of 20, but x-ray was negative except for some possible right upper lobe scarring. Patient was placed on Rocephin, Zithromax, steroids and admitted to the hospital. Patient reportedly has a history of throat cancer, but has been in remission for 5 years. Since being in the intensive care unit, patient has required supplemental oxygen, but noninvasive therapy was able to be discontinued. Patient reports subjective improvement, but does not have a lot of details on when he started feeling bad. Patient reportedly has had shortness of breath for quite some time, but states that he has not had a productive cough. Patient is reportedly on Symbicort at home, but was unable to name this medication on questioning. Patient does know what albuterol is and has been using this frequently for the last 5 days. Patient states he is never seen a community relations specialist and has not had pulmonary function test to his knowledge. Review of systems otherwise negative from a constitutional, HEENT, respiratory, cardiovascular, GI, genitourinary, musculoskeletal, skin, neurologic, psychiatric and hematologic system unless stated above. Past Medical History Past Medical History (Chronic Problems): Chronic Problems Right inguinal hernia (Chronic) Peripheral arterial disease (Chronic) Throat cancer (Chronic) Dyslipidemia (Chronic) Hypertension (Chronic) H/O: stroke (Chronic) Allergies No Known Allergies Allergy (Verified 05/05/20 19:06) Home Medications: Ambulatory Orders Medication Instructions Recorded Fluticasone Propionate [Flonase 1 spray NS DAILY 09/26/15 Allergy Relief] Budesonide/Formoterol 160/4.5 2 puff INHALATION BID 09/16/17 [Symbicort 160/4.5 Mcg Inhaler (SP)] Albuterol IH (ProAir) [Proair Hfa] 1 - 2 puff INHALATION Q2H PRN PRN 09/18/17 #1 inhaler Amlodipine [Norvasc] 10 mg PO DAILY #30 tab 09/18/17 Atorvastatin Calcium 80 mg PO QHS #30 tab 09/18/17 Aspirin E.C. [Ecotrin] 81 mg PO DAILY 04/22/18 Metoprolol Tartrate 25 mg PO BID 04/22/18 Clopidogrel Bisulfate [Plavix] 75 mg PO DAILY #30 tab 04/24/18 Surgical History: appendectomy, cholecystectomy, - - Carotid Endarterectomy Smoking Status: Current every day smoker Tobacco Use: Cigarettes - *Family History Paternal History Items: Cancer, High Cholesterol, Heart Disease, Hypertension, Pulmonary Disease Maternal History Items: Cancer - His mother had colon cancer Review of Systems Comment: See HPI Patient Problems: Active and Suspected Problems Respiratory failure (Acute) COPD (chronic obstructive pulmonary disease) with emphysema (Acute) Objective: Chest x-ray was personally reviewed and shows hyperinflation. There is an area of possible scarring in the right upper lobe, but no acute infiltrate is appreciated. Patient had an echocardiogram in 2018 showing an EF of 65% with stage I diastolic dysfunction and a slightly elevated right ventricular systolic pressure of 34 mmHg. There is no significant valvular abnormalities noted on this study. Patient has never had a pulmonary function test that is available for review. - Physical Exam Vitals/I&O's: Vital Signs Temp Pulse Resp BP Pulse Ox 36.4 C L 96 22 H 114/74 97 05/06/20 05:00 05/06/20 06:00 05/06/20 06:00 05/06/20 06:00 05/06/20 06:00 Oxygen Flow Rate (L/min) 2 Oxygen Delivery Method Nasal Cannula Weight: 20.638 kg Body Mass Index (BMI) 15.7 Finger Stick Blood Glucose 103 Intake and Output for Last 24 Hours 05/04/20 05/05/20 05/06/20 23:59 23:59 23:59 Intake Total 1305 / 1305 120 / 120 Output Total 0 / 0 250 / 250 Balance 1305 / 1305 -130 / -130 General: Alert, Oriented x3, Cooperative, - - Mild to moderate conversational dyspnea. Appears older than stated age. HEENT: Atraumatic, PERRLA, EOMI, Normocephalic, - - Slight scleral injection. No icterus appreciated. Oral: No Gingival or Mucosal Lesions/ Ulcerations, Dry Mucosa Neck: Supple, No JVD, No Nodes Lungs: No rhonchi, No rales, Diminished, Wheezes - Bilateral, - - Symmetric expansion. Increased AP diameter. Cardiovascular: Regular rate, Regular Rhythm, Normal S1, Normal S2, No murmurs, No rub noted, No Gallop Abdomen: Bowel Sounds Present, Soft, Non Tender, Non-Distended Extremities: No cyanosis, No edema, Capillary Refill Less than 3 Seconds, Clubbing Skin: No rashes, No breakdown Musculoskeletal: No Tenderness to Palpation of Joints or Extremities Lymphatic: No Cervical, Supraclavicular, or Inguinal Adenopathy Neurological: Cranial nerves II-XII grossly intact, Neuro grossly intact, Motor Exam 5/5 strength throughout Psych/Mental Status: Appropriate, Anxious Laboratory Results 05/05/20 18:40: COVID-19 (RENÉ) Negative 05/05/20 19:35: WBC 20.4 H, RBC 5.13, Hgb 15.5, Hct 50.3, MCV 98.1 H, MCH 30.2, MCHC 30.8 L, RDW Std Deviation 59.5 H, RDW Coeff of Chao 16.5 H, Plt Count 203, MPV 10.7, Immature Gran % (Auto) 1.300 H, Neut % (Auto) 85.1 H, Lymph % (Auto) 5.7 L, [place] % (Auto) 7.3, Eos % (Auto) 0.1, Baso % (Auto) 0.5, Absolute Neuts (auto) 17.4 H, Absolute Lymphs (auto) 1.16, Nucleated RBC % 0 05/05/20 19:35: Sodium Cancelled, Potassium Cancelled, Chloride Cancelled, Carbon Dioxide Cancelled, Anion Gap Cancelled, BUN Cancelled, Creatinine Cancelled, Estim Creat Clear Calc Cancelled, Est GFR (MDRD) Af Amer Cancelled, Est GFR (MDRD) Non-Af Cancelled, BUN/Creatinine Ratio Cancelled, Glucose Cancelled, Calcium Cancelled, Total Bilirubin Cancelled, AST Cancelled, ALT Cancelled, Alkaline Phosphatase Cancelled, Troponin I Cancelled, Total Protein Cancelled, Albumin Cancelled, Globulin Cancelled, Albumin/Globulin Ratio Cancelled 05/05/20 20:24: Lactic Acid 1.5 05/05/20 20:25: Sodium 137, Potassium 4.8, Chloride 102, Carbon Dioxide 23.0, Anion Gap 12, BUN 13, Creatinine 0.74, Estim Creat Clear Calc 67.93, Est GFR (MDRD) Af Amer 137, Est GFR (MDRD) Non-Af 113, BUN/Creatinine Ratio 17.5, Glucose 127 H, Calcium 8.7, Total Bilirubin 0.20, AST 22, ALT 25, Alkaline Phosphatase 88, Troponin I < 0.015, Total Protein 7.1, Albumin 3.7, Globulin 3.4, Albumin/Globulin Ratio 1.1 05/05/20 20:29: Specimen Type ART, Sample Site R Radial, pH 7.34 L, Bicarbonate Actual 23.1, Total CO2 24, Base Excess -3 L, O2 Saturation 95, O2 % 21, ABG pCO2 42.5, ABG pO2 81, Umer Test Positive, O2 Delivery Device BiPAP 05/06/20 04:50: WBC 16.4 H, RBC 4.43 L, Hgb 13.1, Hct 40.6, MCV 91.6 D, MCH 29.6, MCHC 32.3, RDW Std Deviation 54.3 H, RDW Coeff of Chao 16.0 H, Plt Count 241, MPV 10.0, Immature Gran % (Auto) 0.600, Neut % (Auto) 93.3 H, Lymph % (Auto) 4.2 L, [place] % (Auto) 1.8, Eos % (Auto) 0.0, Baso % (Auto) 0.1, Absolute Neuts (auto) 15.3 H, Absolute Lymphs (auto) 0.69 L, Nucleated RBC % 0 05/06/20 04:50: Sodium 134 L, Potassium 4.7, Chloride 99, Carbon Dioxide 29.0, Anion Gap 6, BUN 13, Creatinine 0.79, Estim Creat Clear Calc 62.39, Est GFR (MDRD) Af Amer 127, Est GFR (MDRD) Non-Af 105, BUN/Creatinine Ratio 16.4, Glucose 132 H, Calcium 8.6 Current Medications Acetaminophen (Tylenol) 650 mg PO Q6H PRN PRN PRN Reason: Pain Score 1-10/Temp > 100.7 F Albuterol Sulfate (Ventolin Aerosols) 2.5 mg INHALATION Q2H PRN PRN PRN Reason: SOB/Wheezing Albuterol/Ipratropium (Duoneb) 3 ml INHALATION Q4HWA.RT [facility] Last Admin: 05/05/20 22:00 Dose: 3 ml Documented by: Enoxaparin Sodium (Lovenox) 40 mg SC DAILY [facility] Guaifenesin (Robitussin) 10 ml PO Q4H PRN PRN PRN Reason: COUGH Azithromycin 500 mg/ Dextrose 255 mls @ 250 mls/hr IV Q24@2200 [facility] Stop: 05/08/20 23:02 Ceftriaxone Sodium (Rocephin) 1 gm in 50 mls @ 100 mls/hr IV Q24@2200 [facility] Sodium Chloride () 250 mls @ 15 mls/hr IV .[id number] PRN PRN Reason: Saline Flush Sodium Chloride () 250 mls @ 15 mls/hr IV .[id number] PRN PRN Reason: Additional IVPB Infusion Influenza Virus Vaccine Quadrival (Flucelvax /Fluzone ) 0.5 ml IM .ONCE ONE Stop: 05/06/20 10:01 Methylprednisolone (Solu-Medrol) 40 mg IV Q8 [facility] Last Admin: 05/06/20 06:43 Dose: 40 mg Documented by: Nicotine (Nicoderm Cq (Pbkc)) 14 mg TRANSDERM. DAILY [facility] Nutritional Formula (Lactose Free) (Ensure Enlive) 120 ml PO 4X/DAY [facility] Ondansetron HCl (Zofran) 4 mg IV Q8H PRN PRN PRN Reason: NAUSEA/VOMITING Senna/Docusate Sodium (Senokot-S, Karin-Colace) 2 tablet PO BID PRN PRN PRN Reason: Constipation Sodium Chloride () 10 - 40 ml IV UD PRN PRN Reason: SALINE FLUSH Last Admin: 05/06/20 06:43 Dose: 10 ml Documented by: Clinical Impression(s) from Imaging Studies Chest X-Ray 05/05/20 18:43 IMPRESSION: Hyperaeration. Probable right upper lobe focal scarring. Electronically Signed: Troy Tolliver DO at 20:03 EDT Tel [phone], Service support , Assessment/Plan All Active Problems Respiratory failure (Acute) COPD (chronic obstructive pulmonary disease) with acute bronchitis (Acute) COPD (chronic obstructive pulmonary disease) with emphysema (Acute) RECOMMENDATIONS: 1. Continue antibiotics, steroids, bronchodilators and mucolytic 2. Wean oxygen as tolerated. 3. Walking oximetry prior to discharge 4. Outpatient complete PFT for quantification and clarification of lung function 5. Outpatient CT scan without contrast for evaluation of right upper lobe IMPRESSIONS: 1. Acute hypoxic respiratory failure secondary to probable COPD exacerbation Initial reports are of 4 hours of sudden onset. Pulmonary embolism would be a concern with this history. However, after further questioning, patient has been declining for over a week. Patient does have hyperinflation and a long smoking history. No pulmonary function tests are available for quantification of clarification of lung function, but presumption of COPD exacerbation appears to be appropriate. Patient did have an elevated blood pressure on presentation and may have an element of flash pulmonary edema secondary to acute diastolic dysfunction versus hypertension associated with acute condition and anxiety. Likely not necessary to repeat echocardiogram at this time. Some clinical suspicion that supplemental oxygen may have been required at baseline. Will treat with antibiotics, steroids, bronchodilators and mucolytic. Add sputum culture if able to obtain. 2. Possible right upper lobe nodule Patient has an area of what appears to be scarring on chest x-ray. No infiltrate is appreciated. Given patient's history of throat cancer, this should likely be evaluated with a CT scan. However, it is unlikely that this finding contributes to the inpatient management. A CT scan can be completed as an outpatient without contrast. Patient does not have any risk factors for TB, so respiratory isolation is likely not necessary. 3. Protein calorie malnutrition/active tobacco abuse/poor historian/delayed presentation/history of throat cancer Complicates care, management, recovery and prognosis. Confirmed patient is a DNR Comfort Care arrest without intubation. Dietitian has been consulted to address nutritional concerns. Encouraged to seek smoking cessation, but appears to be pre-contemplative at this time. Inpatient E&M: 28372 Init Hosp L3
[2020-05-06] MEDS: Ipratropium/Albuterol Sulfate 3 ML AMPUL.NEB INHALATION ×4 (07:01→19:16)
--- NOTE | 2020-05-06 07:14 | PN_ITS ---
Patient Problems: Active and Suspected Problems Respiratory failure (Acute) COPD (chronic obstructive pulmonary disease) with emphysema (Acute) Reason for Visit: Follow-up on acute COPD exacerbation. Subjective: Patient was seen and examined. He feels much improved. He was on BiPAP for short time on admission. Currently on 2 L of oxygen. He denied any worsening or tightness of the chest. Denied any fever or chills. Telemetry shows sinus tachycardia. EKG confirms it. Objective: Physical exam: General: Alert, Oriented x3, Cooperative, - - Cachectic HEENT: Atraumatic, PERRLA, EOMI, Normocephalic Neck: Supple, No JVD, Negative Carotid Bruits Lungs: Diminished, Rhonchi, Short of Breath, Tachypneic, Using Accessory Muscles, Wheezes Cardiovascular: Normal S1, Normal S2, No murmurs, Tachycardic Abdomen: Bowel Sounds Present, Soft, Non Tender Extremities: No edema, Capillary Refill Less than 3 Seconds Skin: No rashes, No breakdown Musculoskeletal: No Tenderness to Palpation of Joints or Extremities Neurological: Cranial nerves II-XII grossly intact Psych/Mental Status: Normal Affect, Appropriate Vitals/I&O's: Vital Signs Temp Pulse Resp BP Pulse Ox 97.6 F L 96 22 H 114/74 97 05/06/20 05:00 05/06/20 06:00 05/06/20 06:00 05/06/20 06:00 05/06/20 06:00 Oxygen Flow Rate (L/min) 2 Oxygen Delivery Method Nasal Cannula Weight: 20.638 kg Body Mass Index (BMI) 15.7 Finger Stick Blood Glucose 103 Intake and Output for Last 24 Hours 05/04/20 05/05/20 05/06/20 23:59 23:59 23:59 Intake Total 1305 / 1305 120 / 120 Output Total 0 / 0 250 / 250 Balance 1305 / 1305 -130 / -130 Laboratory Results 05/05/20 18:40: COVID-19 (RENÉ) Negative 05/05/20 19:35: WBC 20.4 H, RBC 5.13, Hgb 15.5, Hct 50.3, MCV 98.1 H, MCH 30.2, MCHC 30.8 L, RDW Std Deviation 59.5 H, RDW Coeff of Chao 16.5 H, Plt Count 203, MPV 10.7, Immature Gran % (Auto) 1.300 H, Neut % (Auto) 85.1 H, Lymph % (Auto) 5.7 L, [place] % (Auto) 7.3, Eos % (Auto) 0.1, Baso % (Auto) 0.5, Absolute Neuts (auto) 17.4 H, Absolute Lymphs (auto) 1.16, Nucleated RBC % 0 05/05/20 19:35: Sodium Cancelled, Potassium Cancelled, Chloride Cancelled, Carbon Dioxide Cancelled, Anion Gap Cancelled, BUN Cancelled, Creatinine Cancelled, Estim Creat Clear Calc Cancelled, Est GFR (MDRD) Af Amer Cancelled, Est GFR (MDRD) Non-Af Cancelled, BUN/Creatinine Ratio Cancelled, Glucose Cancelled, Calcium Cancelled, Total Bilirubin Cancelled, AST Cancelled, ALT Cancelled, Alkaline Phosphatase Cancelled, Troponin I Cancelled, Total Protein Cancelled, Albumin Cancelled, Globulin Cancelled, Albumin/Globulin Ratio Cancelled 05/05/20 20:24: Lactic Acid 1.5 05/05/20 20:25: Sodium 137, Potassium 4.8, Chloride 102, Carbon Dioxide 23.0, Anion Gap 12, BUN 13, Creatinine 0.74, Estim Creat Clear Calc 67.93, Est GFR (MDRD) Af Amer 137, Est GFR (MDRD) Non-Af 113, BUN/Creatinine Ratio 17.5, Glucose 127 H, Calcium 8.7, Total Bilirubin 0.20, AST 22, ALT 25, Alkaline Phosphatase 88, Troponin I < 0.015, Total Protein 7.1, Albumin 3.7, Globulin 3.4, Albumin/Globulin Ratio 1.1 05/05/20 20:29: Specimen Type ART, Sample Site R Radial, pH 7.34 L, Bicarbonate Actual 23.1, Total CO2 24, Base Excess -3 L, O2 Saturation 95, O2 % 21, ABG pCO2 42.5, ABG pO2 81, Umer Test Positive, O2 Delivery Device BiPAP 05/06/20 04:50: WBC 16.4 H, RBC 4.43 L, Hgb 13.1, Hct 40.6, MCV 91.6 D, MCH 29.6, MCHC 32.3, RDW Std Deviation 54.3 H, RDW Coeff of Chao 16.0 H, Plt Count 241, MPV 10.0, Immature Gran % (Auto) 0.600, Neut % (Auto) 93.3 H, Lymph % (Auto) 4.2 L, [place] % (Auto) 1.8, Eos % (Auto) 0.0, Baso % (Auto) 0.1, Absolute Neuts (auto) 15.3 H, Absolute Lymphs (auto) 0.69 L, Nucleated RBC % 0 05/06/20 04:50: Sodium 134 L, Potassium 4.7, Chloride 99, Carbon Dioxide 29.0, Anion Gap 6, BUN 13, Creatinine 0.79, Estim Creat Clear Calc 62.39, Est GFR (MDRD) Af Amer 127, Est GFR (MDRD) Non-Af 105, BUN/Creatinine Ratio 16.4, Glucose 132 H, Calcium 8.6 Current Medications Acetaminophen (Tylenol) 650 mg PO Q6H PRN PRN PRN Reason: Pain Score 1-10/Temp > 100.7 F Albuterol Sulfate (Ventolin Aerosols) 2.5 mg INHALATION Q2H PRN PRN PRN Reason: SOB/Wheezing Albuterol/Ipratropium (Duoneb) 3 ml INHALATION Q4HWA.RT [facility] Last Admin: 05/06/20 07:01 Dose: 3 ml Documented by: Enoxaparin Sodium (Lovenox) 40 mg SC DAILY [facility] Guaifenesin (Robitussin) 10 ml PO Q4H PRN PRN PRN Reason: COUGH Azithromycin 500 mg/ Dextrose 255 mls @ 250 mls/hr IV Q24@2200 [facility] Stop: 05/08/20 23:02 Ceftriaxone Sodium (Rocephin) 1 gm in 50 mls @ 100 mls/hr IV Q24@2200 [facility] Sodium Chloride () 250 mls @ 15 mls/hr IV .[id number] PRN PRN Reason: Saline Flush Sodium Chloride () 250 mls @ 15 mls/hr IV .[id number] PRN PRN Reason: Additional IVPB Infusion Influenza Virus Vaccine Quadrival (Flucelvax /Fluzone ) 0.5 ml IM .ONCE ONE Stop: 05/06/20 10:01 Methylprednisolone (Solu-Medrol) 40 mg IV Q8 [facility] Last Admin: 05/06/20 06:43 Dose: 40 mg Documented by: Nicotine (Nicoderm Cq (Pbkc)) 14 mg TRANSDERM. DAILY [facility] Nutritional Formula (Lactose Free) (Ensure Enlive) 120 ml PO 4X/DAY [facility] Ondansetron HCl (Zofran) 4 mg IV Q8H PRN PRN PRN Reason: NAUSEA/VOMITING Senna/Docusate Sodium (Senokot-S, Karin-Colace) 2 tablet PO BID PRN PRN PRN Reason: Constipation Sodium Chloride () 10 - 40 ml IV UD PRN PRN Reason: SALINE FLUSH Last Admin: 05/06/20 06:43 Dose: 10 ml Documented by: STROKE Vital Signs/Narrative: Vital Signs Temp Pulse Resp BP Pulse Ox 05/06/20 06:00 96 22 H 114/74 97 05/06/20 05:00 97.6 F L 107 H 19 H 174/101 H 95 05/06/20 04:10 87 05/06/20 04:00 85 16 119/75 97 Medical Necessity - Tobacco Use Smoking Status: Current every day smoker Tobacco Use: Cigarettes Assessment/Plan All Active Problems Respiratory failure (Acute) COPD (chronic obstructive pulmonary disease) with acute bronchitis (Acute) COPD (chronic obstructive pulmonary disease) with emphysema (Acute) 1. Acute respiratory insufficiency secondary to acute COPD exacerbation Patient was transiently on BiPAP. He was managed on nasal cannula oxygen since admission. Currently on 2 L of oxygen. Will continue to wean off for SPO2 more than 94% 2. Acute COPD exacerbation, patient with history of COPD No pneumonia on chest x-ray Continue on IV Solu-Medrol, breathing treatments 3. Leukocytosis with bandemia, unclear etiology for now, appears improved Admitted with WBC count of 20.4, bandemia 1.3%, WBC count now is 16.4, no bandemia Blood cultures are pending, would continue on IV ceftriaxone and azithromycin for now Would discontinue antibiotics when blood cultures are negative 4. Nicotine dependence, on replacement 5. Hypertension, BP is controlled, not on meds will continue to monitor 6. History of CVA, on plavix 7. History of throat cancer status post treatment, needs to follow in the outpatient 8. DVT PPx- Lovenox SC Inpatient E&M: 26202 Subs Hosp L2
--- NOTE | 2020-05-06 08:41 | EKG12_ITS ---
Test Reason : DYSRHYTHMIA Blood Pressure : / mmHG Vent. Rate : 120 BPM Atrial Rate : 120 BPM P-R Int : 136 ms QRS Dur : 062 ms QT Int : 322 ms P-R-T Axes : 081 075 064 degrees QTc Int : 455 ms Sinus tachycardia Otherwise normal ECG Confirmed by LUCY MELGOZA, BETHEL ([id number]), commissioning editor AARON BOSCH ([id number]) on 05/09/2020 1:36:01 PM Referred By: TL Confirmed By:BETHEL AYALA MD
[2020-05-06] MEDS: Enoxaparin 40 MG/0.4 ML Syringe SC (09:13)
--- NOTE | 2020-05-06 09:56 | NT.THERAPY_ITS ---
Nutrition Therapy Report - History Nutrition Services has been consulted to:: Manage nutrient details of diet order Current diet / nutrition support order:: Regular w/ 120 cc w/ medpass 4x/day - Anthropometric Measurements Height:: 5 ft 7 in Weight:: 45.5 kg Body Mass Index (BMI):: 15.7 - Relevant Labs Relevant Labs:: WBC 16.4 K/mm3 (4.4-11.0) H 05/06/20 04:50 RBC 4.43 M/mm3 (4.6-6.2) L 05/06/20 04:50 MCV 98.1 fL (80-94) H 05/05/20 19:35 MCHC 30.8 g/dL (32-36) L 05/05/20 19:35 RDW Std Deviation 54.3 fl (35.1-43.9) H 05/06/20 04:50 RDW Coeff of Chao 16.0 % (11.6-14.6) H 05/06/20 04:50 Immature Gran % (Auto) 1.300 % (0.0-0.9) H 05/05/20 19:35 Neut % (Auto) 93.3 % (47-70) H 05/06/20 04:50 Lymph % (Auto) 4.2 % (19-41) L 05/06/20 04:50 Absolute Neuts (auto) 15.3 X10^3/uL (2.0-7.7) H 05/06/20 04:50 Absolute Lymphs (auto) 0.69 X10^3/uL (0.83-4.51) L 05/06/20 04:50 Sodium 134 mmol/L (136-145) L 05/06/20 04:50 Glucose 132 mg/dL (74-106) H 05/06/20 04:50 - Assessment Food / Nutrition-Related History:: 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 PO intake poor w/ breakfast this morning. No issues eating/swallowing noted. Agreeable to ONS w/ meals and medpass. [ End ] - Nutrition Diagnosis Problem / Etiology / Signs & Symptoms (PES):: Pt with decreased appetite d/t COPD AEB wt loss/ decreased po intake/ fat/muscle loss. [ End ] Evidence of Malnutrition Exists:: Yes Severe PCM:: Chronic Illness - Nutrition Intervention Nutrition Prescription:: [id number] natacha / 45-55 gm pro / day - Food / Nutrient Delivery Interventions Summary of nutrition intervention:: Will continue ONS at medpass and provide ONS w/ meals for increased nutrition if consumed. Will continue liberal Regular diet. [ End ] Nutrition education provided?: No - MNT Monitoring Further MNT monitoring and evaluation required?: Yes MNT Follow-up in:: 3-5 days - call RD/LD if questions or concerns x [phone]
[2020-05-06] MEDS: Metoprolol Tartrate 25 MG Tablet PO (13:00)
[2020-05-06] MEDS: Aspirin 81 MG TAB.CHEW PO (13:00)
[2020-05-06] MEDS: Clopidogrel Bisulfate 75 MG Tablet PO (13:00)
--- NOTE | 2020-05-06 13:04 | CASEMGMT ---
AMBERLY PRIDE assessment: Face to Face with patient for initial transition planning/care coordination assessment. AMBERLY PRIDE introduced self and role at [facility], pt voices understanding and consents to assessment at this time. Pt is sitting up in bed in no distress at this time. Pt is A/Ox4 at this time and answers questions appropriately. Pt is currently on 1 liter at this time with a sat of 97%. Care providers, pharmacy, and demographics verified at this time. Presentation: Pt having increased SOB x4 hours-arrives on CPAP Admitting dx: COPD exac PCP: Joe Specialists: Pt states no current specialists. Preferred Pharmacy: [facility] Insurance: [employer] A/B, [employer] Prescription Benefit: Yes Living Will/HPOA: Pt states does not have LW/HPOA and declines AD info at this time. LNOK: Shantelle Genao, sig other Living Arrangements: Pt states lives with sig other in home and states no concerns at home at this time. Pt states is independent with ADL's. Transportation: Pt states drives self or sig other drives and states no transportation concerns at this time. DME/HHC: Pt states no current DME or need for any at this time. Pt states no preference for DME, if needed. Pt states no hx of HHC or SNF in the past. Pt states no concerns with going home at time of discharge. Pt is on disability. Pt states smokes a pack of cigarettes daily and drinks ETOH occasionally. Pt voices no further concerns/needs at this time. CM to follow for any further discharge planning/needs. Advised pt to ask for CM if any further questions/concerns/needs arise, voices understanding. Pt Goal: Home Plan: [place] AMBERLY PRIDE
[2020-05-06] MEDS: Ceftriaxone 1 GM/50 ML BAG IV (21:05)
[2020-05-07] VITALS (21 sets, daily range): BP systolic 111–143; BP diastolic 72–93; PULSE 87–118; RESP 16–20; TEMP 36.4–36.7; O2SAT 85–96
[2020-05-07 06:48] LABS: Absolute Lymphocyte Count 0.59 X10^3/uL (0.83-4.51); Basophil# 0.01 X10^3/uL; Basophil% 0.1 % (0-1); Hematocrit 37.8 % (40-54); Hemoglobin 12.6 g/dL (13.0-16.5); Lymphocyte # 0.59 X10^3/ul (4.0); Lymphocyte % 3.6 % (19-41); Mean Corp Hgb Conc 33.3 g/dL (32-36); Mean Corpuscular Hgb 30.1 pg (27.0-32.0); Mean Corpuscular Volume 90.4 fL (80-94); Mean Platelet Vol. 10.1 fl (6.2-12.0); Monocyte# 0.83 X10^3/uL; NRBC Flagged by Analyzer 0 % (0-5); Neutrophil # 15.02 X10^3/uL (2.7-7.7); Neutrophil % 90.6 % (47-70); POSITIVE DIFFERENTIAL YES; POSITIVE MORPHOLOGY YES; Platelet Count 263 K/mm3 (150-450); RBC Distribution Width CV 15.9 % (11.6-14.6); RBC Distribution Width SD 52.1 fl (35.1-43.9); Red Blood Count 4.18 M/mm3 (4.6-6.2); White Blood Count 16.6 K/mm3 (4.4-11.0)
[2020-05-07 06:56] LABS: Differential Indicated SCAN CRITERIA MET
[2020-05-07] MEDS: Ipratropium/Albuterol Sulfate 3 ML AMPUL.NEB INHALATION ×4 (06:56→19:45)
[2020-05-07 07:07] LABS: Differential Comment SCANNED
[2020-05-07 07:09] LABS: ALB/GLOB Ratio 0.9 RATIO (0.9-2.4); AST(SGOT) 13 U/L (15-37); Alanine Aminotransfer ALT/SGPT 21 U/L (16-61); Albumin, Serum 3.2 g/dL (3.2-5.0); Alkaline Phosphatase 67 U/L (45-117); Anion Gap 7 (5-15); BUN 18 mg/dL (7-18); BUN/Creat Ratio 27.4 RATIO (10-20); Calcium,Total 8.9 mg/dL (8.5-10.1); Chloride 99 mmol/L (98-107); Creatinine, Serum 0.66 mg/dL (0.70-1.30); EST Glomerular Filtration Rate 130 mL/min (>60); Est Glom Filt Rate - Afr Amer 158 mL/min (>60); Estimated Creatinine Clearance 74.36 ml/min; Globulin 3.5 g/dL (2.2-4.2); Glucose 124 mg/dL (74-106); Potassium 4.3 mmol/L (3.5-5.1); Protein, Total 6.7 g/dL (6.4-8.2); Sodium Level 134 mmol/L (136-145)
--- NOTE | 2020-05-07 08:06 | PN_ITS ---
Patient Problems: Active and Suspected Problems Respiratory failure (Acute) COPD (chronic obstructive pulmonary disease) with emphysema (Acute) Subjective: Patient did well overnight. No acute issues were reported outside of insomnia. Patient does feel better from a respiratory standpoint and has been able to be weaned to 1 L nasal cannula. - Physical Exam Vitals/I&O's: Vital Signs Temp Pulse Resp BP Pulse Ox 36.4 C L 108 H 16 111/72 94 05/07/20 07:40 05/07/20 07:43 05/07/20 07:40 05/07/20 07:40 05/07/20 07:40 Oxygen Flow Rate (L/min) 2 Oxygen Delivery Method Nasal Cannula Weight: 45.3 kg Body Mass Index (BMI) 15.7 Finger Stick Blood Glucose 103 Intake and Output for Last 24 Hours 05/05/20 05/06/20 05/07/20 23:59 23:59 23:59 Intake Total 1305 / 1305 905 / 905 Output Total 0 / 0 375 / 500 475 / 475 Balance 1305 / 1305 530 / 405 -475 / -475 General: Alert, Oriented x3, Cooperative, No apparent distress, - - Appears older than stated age. Speaking in full sentences. HEENT: Atraumatic, PERRLA, EOMI, Normocephalic, - - No scleral icterus or injection noted Oral: Moist Mucosa, No Gingival or Mucosal Lesions/ Ulcerations Neck: Supple, No JVD, No Nodes, Trachea Midline Lungs: No rhonchi, No rales, Diminished, Wheezes Cardiovascular: Regular rate, Regular Rhythm, Normal S1, Normal S2, No murmurs, No rub noted, No Gallop Abdomen: Bowel Sounds Present, Soft, Non Tender, Non-Distended Extremities: No clubbing, No cyanosis, No edema, Capillary Refill Less than 3 Seconds Skin: - - No change compared to previous Musculoskeletal: No Tenderness to Palpation of Joints or Extremities Lymphatic: No Cervical, Supraclavicular, or Inguinal Adenopathy Neurological: Cranial nerves II-XII grossly intact, Neuro grossly intact, Motor Exam 5/5 strength throughout Psych/Mental Status: Alert and oriented to time, place, person, mood and affect Laboratory Results 05/07/20 05:25: WBC 16.6 H, RBC 4.18 L, Hgb 12.6 L, Hct 37.8 L, MCV 90.4, MCH 30.1, MCHC 33.3, RDW Std Deviation 52.1 H, RDW Coeff of Chao 15.9 H, Plt Count 263, MPV 10.1, Immature Gran % (Auto) 0.700, Neut % (Auto) 90.6 H, Lymph % (Auto) 3.6 L, [place] % (Auto) 5.0, Eos % (Auto) 0.0, Baso % (Auto) 0.1, Absolute Neuts (auto) 15.0 H, Absolute Lymphs (auto) 0.59 L, Nucleated RBC % 0, Differential Comment SCANNED 05/07/20 05:25: Sodium 134 L, Potassium 4.3, Chloride 99, Carbon Dioxide 28.0, Anion Gap 7, BUN 18, Creatinine 0.66 L, Estim Creat Clear Calc 74.36, Est GFR (MDRD) Af Amer 158, Est GFR (MDRD) Non-Af 130, BUN/Creatinine Ratio 27.4 H, Glucose 124 H, Calcium 8.9, Total Bilirubin 0.20, AST 13 L, ALT 21, Alkaline Phosphatase 67, Total Protein 6.7, Albumin 3.2, Globulin 3.5, Albumin/Globulin Ratio 0.9 Current Medications Acetaminophen (Tylenol) 650 mg PO Q6H PRN PRN PRN Reason: Pain Score 1-10/Temp > 100.7 F Albuterol Sulfate (Ventolin Aerosols) 2.5 mg INHALATION Q2H PRN PRN PRN Reason: SOB/Wheezing Albuterol/Ipratropium (Duoneb) 3 ml INHALATION Q4HWA.RT [facility] Last Admin: 05/07/20 06:56 Dose: 3 ml Documented by: Clopidogrel Bisulfate (Plavix) 75 mg PO DAILY [facility] Last Admin: 05/06/20 13:00 Dose: 75 mg Documented by: Enoxaparin Sodium (Lovenox) 40 mg SC DAILY [facility] Last Admin: 05/06/20 09:13 Dose: 40 mg Documented by: Guaifenesin (Robitussin) 10 ml PO Q4H PRN PRN PRN Reason: COUGH Azithromycin 500 mg/ Dextrose 255 mls @ 250 mls/hr IV Q24@2200 [facility] Stop: 05/08/20 23:02 Last Infusion: 05/06/20 23:18 Dose: Infused Documented by: Ceftriaxone Sodium (Rocephin) 1 gm in 50 mls @ 100 mls/hr IV Q24@2200 [facility] Last Infusion: 05/06/20 21:34 Dose: Infused Documented by: Sodium Chloride () 250 mls @ 15 mls/hr IV .[id number] PRN PRN Reason: Saline Flush Sodium Chloride () 250 mls @ 15 mls/hr IV .[id number] PRN PRN Reason: Additional IVPB Infusion Methylprednisolone (Solu-Medrol) 40 mg IV Q8 [facility] Last Admin: 05/07/20 06:05 Dose: 40 mg Documented by: Nicotine (Nicoderm Cq (Pbkc)) 14 mg TRANSDERM. DAILY [facility] Last Admin: 05/06/20 09:13 Dose: Not Given Documented by: Nutritional Formula (Lactose Free) (Ensure Enlive) 120 ml PO 4X/DAY [facility] Last Admin: 05/06/20 21:05 Dose: Not Given Documented by: Ondansetron HCl (Zofran) 4 mg IV Q8H PRN PRN PRN Reason: NAUSEA/VOMITING Senna/Docusate Sodium (Senokot-S, Karin-Colace) 2 tablet PO BID PRN PRN PRN Reason: Constipation Sodium Chloride () 10 - 40 ml IV UD PRN PRN Reason: SALINE FLUSH Last Admin: 05/06/20 15:37 Dose: 10 ml Documented by: Medical Necessity - Tobacco Use Smoking Status: Current every day smoker Tobacco Use: Cigarettes Assessment/Plan All Active Problems Respiratory failure (Acute) COPD (chronic obstructive pulmonary disease) with acute bronchitis (Acute) COPD (chronic obstructive pulmonary disease) with emphysema (Acute) RECOMMENDATIONS: 1. Continue antibiotics, bronchodilators and mucolytic. Wean steroid therapy 2. Wean oxygen as tolerated. 3. Walking oximetry prior to discharge 4. Outpatient complete PFT for quantification and clarification of lung function 5. Outpatient CT scan without contrast for evaluation of right upper lobe IMPRESSIONS: 1. Acute hypoxic respiratory failure secondary to probable COPD exacerbation Initial reports are of 4 hours of sudden onset. Pulmonary embolism would be a concern with this history. However, after further questioning, patient has been declining for over a week. Patient does have hyperinflation and a long smoking history. No pulmonary function tests are available for quantification of clarification of lung function, but presumption of COPD exacerbation appears to be appropriate. Patient appears to be responding to current therapy, so we will continue treating for a COPD exacerbation. Insomnia overnight and continued leukocytosis may be secondary to steroid therapy. This will be decreased. 2. Possible right upper lobe nodule Patient has an area of what appears to be scarring on chest x-ray. No infiltrate is appreciated. Given patient's history of throat cancer, this should likely be evaluated with a CT scan. However, it is unlikely that this finding contributes to the inpatient management. A CT scan can be completed as an outpatient without contrast. Patient does not have any risk factors for TB, so respiratory isolation is likely not necessary. 3. Protein calorie malnutrition/active tobacco abuse/poor historian/delayed presentation/history of throat cancer Complicates care, management, recovery and prognosis. Confirmed patient is a DNR Comfort Care arrest without intubation. Dietitian has been consulted to address nutritional concerns. Encouraged to seek smoking cessation, but appears to be pre-contemplative at this time. Inpatient E&M: [id number] Subs Hosp L2
[2020-05-07] MEDS: Enoxaparin 40 MG/0.4 ML Syringe SC (09:57)
[2020-05-07] MEDS: Clopidogrel Bisulfate 75 MG Tablet PO (09:57)
--- NOTE | 2020-05-07 13:08 | PN_ITS ---
Patient Problems: Active and Suspected Problems Respiratory failure (Acute) COPD (chronic obstructive pulmonary disease) with emphysema (Acute) Reason for Visit: Follow-up on acute COPD exacerbation. Subjective: Patient was seen and examined. Complained of inability to sleep. Denied chest pain, SOB or palpitations. Objective: Physical exam: General: Alert, Oriented x3, Cooperative, - - Cachectic HEENT: Atraumatic, PERRLA, EOMI, Normocephalic Neck: Supple, No JVD, Negative Carotid Bruits Lungs: Diminished, Rhonchi, Short of Breath, Tachypneic, Using Accessory Muscles, Wheezes Cardiovascular: Normal S1, Normal S2, No murmurs, Tachycardic Abdomen: Bowel Sounds Present, Soft, Non Tender Extremities: No edema, Capillary Refill Less than 3 Seconds Skin: No rashes, No breakdown Musculoskeletal: No Tenderness to Palpation of Joints or Extremities Neurological: Cranial nerves II-XII grossly intact Psych/Mental Status: Normal Affect, Appropriate Vitals/I&O's: Vital Signs Temp Pulse Resp BP Pulse Ox 97.9 F 111 H 16 124/75 H 94 05/07/20 11:28 05/07/20 12:44 05/07/20 11:28 05/07/20 11:28 05/07/20 11:28 Oxygen Flow Rate (L/min) 1 Oxygen Delivery Method Nasal Cannula Weight: 45.3 kg Body Mass Index (BMI) 15.7 Finger Stick Blood Glucose 103 Intake and Output for Last 24 Hours 05/05/20 05/06/20 05/07/20 23:59 23:59 23:59 Intake Total 1305 / 1305 905 / 905 300 / 300 Output Total 0 / 0 375 / 500 475 / 475 Balance 1305 / 1305 530 / 405 -175 / -175 Laboratory Results 05/07/20 05:25: WBC 16.6 H, RBC 4.18 L, Hgb 12.6 L, Hct 37.8 L, MCV 90.4, MCH 30.1, MCHC 33.3, RDW Std Deviation 52.1 H, RDW Coeff of Chao 15.9 H, Plt Count 263, MPV 10.1, Immature Gran % (Auto) 0.700, Neut % (Auto) 90.6 H, Lymph % (Auto) 3.6 L, [place] % (Auto) 5.0, Eos % (Auto) 0.0, Baso % (Auto) 0.1, Absolute Neuts (auto) 15.0 H, Absolute Lymphs (auto) 0.59 L, Nucleated RBC % 0, Dif ferential Comment SCANNED 05/07/20 05:25: Sodium 134 L, Potassium 4.3, Chloride 99, Carbon Dioxide 28.0, Anion Gap 7, BUN 18, Creatinine 0.66 L, Estim Creat Clear Calc 74.36, Est GFR (MDRD) Af Amer 158, Est GFR (MDRD) Non-Af 130, BUN/Creatinine Ratio 27.4 H, Glucose 124 H, Calcium 8.9, Total Bilirubin 0.20, AST 13 L, ALT 21, Alkaline Phosphatase 67, Total Protein 6.7, Albumin 3.2, Globulin 3.5, Albumin/Globulin Ratio 0.9 Current Medications Acetaminophen (Tylenol) 650 mg PO Q6H PRN PRN PRN Reason: Pain Score 1-10/Temp > 100.7 F Albuterol Sulfate (Ventolin Aerosols) 2.5 mg INHALATION Q2H PRN PRN PRN Reason: SOB/Wheezing Albuterol/Ipratropium (Duoneb) 3 ml INHALATION Q4HWA.RT [facility] Last Admin: 05/07/20 11:00 Dose: 3 ml Documented by: Clopidogrel Bisulfate (Plavix) 75 mg PO DAILY [facility] Last Admin: 05/07/20 09:57 Dose: 75 mg Documented by: Enoxaparin Sodium (Lovenox) 40 mg SC DAILY [facility] Last Admin: 05/07/20 09:57 Dose: 40 mg Documented by: Guaifenesin (Robitussin) 10 ml PO Q4H PRN PRN PRN Reason: COUGH Azithromycin 500 mg/ Dextrose 255 mls @ 250 mls/hr IV Q24@2200 [facility] Stop: 05/08/20 23:02 Last Infusion: 05/06/20 23:18 Dose: Infused Documented by: Ceftriaxone Sodium (Rocephin) 1 gm in 50 mls @ 100 mls/hr IV Q24@2200 [facility] Last Infusion: 05/06/20 21:34 Dose: Infused Documented by: Sodium Chloride () 250 mls @ 15 mls/hr IV .[id number] PRN PRN Reason: Saline Flush Sodium Chloride () 250 mls @ 15 mls/hr IV .[id number] PRN PRN Reason: Additional IVPB Infusion Melatonin (Melatonin) 3 mg PO QHS [facility] Methylprednisolone (Solu-Medrol) 40 mg IV Q12 [facility] Nicotine (Nicoderm Cq (Pbkc)) 14 mg TRANSDERM. DAILY [facility] Last Admin: 05/07/20 09:57 Dose: 14 mg Documented by: Nicotine Polacrilex (Rugby Nicotine (Pbkc)) 4 mg PO Q2H PRN PRN PRN Reason: Nicotine Craving Last Admin: 05/07/20 12:25 Dose: 4 mg Documented by: Nutritional Formula (Lactose Free) (Ensure Enlive) 120 ml PO 4X/DAY [facility] Last Admin: 05/07/20 10:00 Dose: Not Given Documented by: Ondansetron HCl (Zofran) 4 mg IV Q8H PRN PRN PRN Reason: NAUSEA/VOMITING Senna/Docusate Sodium (Senokot-S, Karin-Colace) 2 tablet PO BID PRN PRN PRN Reason: Constipation Sodium Chloride () 10 - 40 ml IV UD PRN PRN Reason: SALINE FLUSH Last Admin: 05/06/20 15:37 Dose: 10 ml Documented by: Zolpidem Tartrate (Ambien (Generic)) 5 mg PO QHS PRN PRN PRN Reason: INSOMNIA STROKE Vital Signs/Narrative: Vital Signs Temp Pulse Resp BP Pulse Ox Pulse Ox Pulse Ox 05/07/20 12:44 111 H 05/07/20 11:28 97.9 F 107 H 16 124/75 H 94 05/07/20 11:00 97 16 05/07/20 10:42 85 85 91 05/07/20 10:37 90 Medical Necessity - Tobacco Use Smoking Status: Current every day smoker Tobacco Use: Cigarettes Assessment/Plan All Active Problems Respiratory failure (Acute) COPD (chronic obstructive pulmonary disease) with acute bronchitis (Acute) COPD (chronic obstructive pulmonary disease) with emphysema (Acute) 1. Acute respiratory insufficiency secondary to acute COPD exacerbation, improved Remains on 1L oxygen. Patient however dropped to 85% on ambulation We will continue treatment for acute COPD exacerbation May need oxygen at discharge 2. Acute COPD exacerbation, patient with history of COPD No pneumonia on chest x-ray Continue on reduced IV Solu-Medrol, breathing treatments 3. Leukocytosis with bandemia, unclear etiology for now, appears the same Admitted with WBC count of 20.4, bandemia 1.3%, WBC count now is 16.6, no bandemia Blood cultures are pending, would continue on IV ceftriaxone and azithromycin for now Would discontinue antibiotics when blood cultures are negative 4. Nicotine dependence, on replacement 5. Hypertension, BP is controlled, not on meds will continue to monitor 6. History of CVA, on plavix 7. History of throat cancer status post treatment, needs to follow in the outpatient 8. DVT PPx- Lovenox IN Inpatient E&M: [id number] Subs Hosp L2
[2020-05-07] MEDS: Acetaminophen 325 MG Tablet 650 MG PO (14:16)
--- NOTE | 2020-05-07 14:23 | CASEMGMT ---
RN CM Note: preliminary oxygen testing completed and pt may need home oxygen on dc. Per nurse, the patient does not have a preference and MCR is primary. Script, demographics, ins card on front of chart with Green Sheet for instructions. Parker LEUNGN RN ACM
[2020-05-07] MEDS: 0.9% Saline Lock 10 ML Syringe IV (21:26)
[2020-05-07] MEDS: Ceftriaxone 1 GM/50 ML BAG IV (21:26)
[2020-05-07] MEDS: MELATONIN 3 MG TABLET PO (21:26)
[2020-05-08] VITALS (10 sets, daily range): BP systolic 120–139; BP diastolic 74–81; PULSE 85–104; RESP 16–17; TEMP 36.4–36.9; O2SAT 91–98
[2020-05-08] MEDS: Ipratropium/Albuterol Sulfate 3 ML AMPUL.NEB INHALATION ×2 (06:58→10:12)
--- NOTE | 2020-05-08 07:01 | PN_ITS ---
Patient Problems: Active and Suspected Problems Respiratory failure (Acute) COPD (chronic obstructive pulmonary disease) with emphysema (Acute) Subjective: Patient did well overnight. No acute issues were reported. Patient states he feels improved compared to previous. Patient remains on nasal cannula oxygen and reports a periodic nonproductive cough. - Physical Exam Vitals/I&O's: Vital Signs Temp Pulse Resp BP Pulse Ox 36.8 C 90 16 139/81 H 98 05/08/20 04:11 05/08/20 04:11 05/08/20 04:11 05/08/20 04:11 05/08/20 04:11 Oxygen Flow Rate (L/min) 1 Oxygen Delivery Method Nasal Cannula Weight: 46.1 kg Body Mass Index (BMI) 15.7 Finger Stick Blood Glucose 103 Intake and Output for Last 24 Hours 05/06/20 05/07/20 05/08/20 23:59 23:59 23:59 Intake Total 905 / 905 1205 / 1255 270 / 270 Output Total 375 / 500 475 / 725 425 / 425 Balance 530 / 405 730 / 530 -155 / -155 General: Alert, Oriented x3, Cooperative, No apparent distress, - - Cachectic. Appears older than stated age. HEENT: Atraumatic, PERRLA, EOMI, Normocephalic, - - Slight scleral injection without icterus Oral: Moist Mucosa, No Gingival or Mucosal Lesions/ Ulcerations Neck: Supple, No JVD, No Nodes, Trachea Midline Lungs: No rhonchi, No rales, Diminished, Wheezes - Sporadic, left greater than right, - - Increased AP diameter. Cardiovascular: Regular rate, Regular Rhythm, Normal S1, Normal S2, No murmurs, No rub noted, No Gallop Abdomen: Bowel Sounds Present, Soft, Non Tender, Non-Distended Extremities: No clubbing, No cyanosis, No edema, Capillary Refill Less than 3 Seconds Skin: - - No change compared to previous Musculoskeletal: No Tenderness to Palpation of Joints or Extremities Lymphatic: No Cervical, Supraclavicular, or Inguinal Adenopathy Neurological: Cranial nerves II-XII grossly intact, Neuro grossly intact, Motor Exam 5/5 strength throughout Psych/Mental Status: Alert and oriented to time, place, person, mood and affect Laboratory Results 05/07/20 05:25: Differential Comment SCANNED 05/07/20 05:25: Sodium 134 L, Potassium 4.3, Chloride 99, Carbon Dioxide 28.0, Anion Gap 7, BUN 18, Creatinine 0.66 L, Estim Creat Clear Calc 74.36, Est GFR (MDRD) Af Amer 158, Est GFR (MDRD) Non-Af 130, BUN/Creatinine Ratio 27.4 H, Glucose 124 H, Calcium 8.9, Total Bilirubin 0.20, AST 13 L, ALT 21, Alkaline Phosphatase 67, Total Protein 6.7, Albumin 3.2, Globulin 3.5, Albumin/Globulin Ratio 0.9 Current Medications Acetaminophen (Tylenol) 650 mg PO Q6H PRN PRN PRN Reason: Pain Score 1-10/Temp > 100.7 F Last Admin: 05/07/20 14:16 Dose: 650 mg Documented by: Albuterol Sulfate (Ventolin Aerosols) 2.5 mg INHALATION Q2H PRN PRN PRN Reason: SOB/Wheezing Albuterol/Ipratropium (Duoneb) 3 ml INHALATION Q4HWA.RT [facility] Last Admin: 05/08/20 06:58 Dose: 3 ml Documented by: Clopidogrel Bisulfate (Plavix) 75 mg PO DAILY [facility] Last Admin: 05/07/20 09:57 Dose: 75 mg Documented by: Enoxaparin Sodium (Lovenox) 40 mg SC DAILY [facility] Last Admin: 05/07/20 09:57 Dose: 40 mg Documented by: Guaifenesin (Robitussin) 10 ml PO Q4H PRN PRN PRN Reason: COUGH Azithromycin 500 mg/ Dextrose 255 mls @ 250 mls/hr IV Q24@2200 [facility] Stop: 05/08/20 23:02 Last Infusion: 05/07/20 23:30 Dose: Infused Documented by: Ceftriaxone Sodium (Rocephin) 1 gm in 50 mls @ 100 mls/hr IV Q24@2200 [facility] Last Infusion: 05/07/20 22:20 Dose: Infused Documented by: Sodium Chloride () 250 mls @ 15 mls/hr IV .[id number] PRN PRN Reason: Saline Flush Sodium Chloride () 250 mls @ 15 mls/hr IV .[id number] PRN PRN Reason: Additional IVPB Infusion Melatonin (Melatonin) 3 mg PO QHS [facility] Last Admin: 05/07/20 21:26 Dose: 3 mg Documented by: Methylprednisolone (Solu-Medrol) 40 mg IV Q12 [facility] Last Admin: 05/07/20 21:26 Dose: 40 mg Documented by: Nicotine (Nicoderm Cq ([facility])) 14 mg TRANSDERM. DAILY [facility] Last Admin: 05/07/20 09:57 Dose: 14 mg Documented by: Nicotine Polacrilex (Rugby Nicotine ([facility])) 4 mg PO Q2H PRN PRN PRN Reason: Nicotine Craving Last Admin: 05/07/20 12:25 Dose: 4 mg Documented by: Nutritional Formula (Lactose Free) (Ensure Enlive) 120 ml PO 4X/DAY [facility] Last Admin: 05/07/20 21:26 Dose: Not Given Documented by: Ondansetron HCl (Zofran) 4 mg IV Q8H PRN PRN PRN Reason: NAUSEA/VOMITING Senna/Docusate Sodium (Senokot-S, Karin-Colace) 2 tablet PO BID PRN PRN PRN Reason: Constipation Sodium Chloride () 10 - 40 ml IV UD PRN PRN Reason: SALINE FLUSH Last Admin: 05/07/20 21:26 Dose: 10 ml Documented by: Zolpidem Tartrate (Ambien (Generic)) 5 mg PO QHS PRN PRN PRN Reason: INSOMNIA Medical Necessity - Tobacco Use Smoking Status: Current every day smoker Tobacco Use: Cigarettes Assessment/Plan All Active Problems Respiratory failure (Acute) COPD (chronic obstructive pulmonary disease) with acute bronchitis (Acute) COPD (chronic obstructive pulmonary disease) with emphysema (Acute) RECOMMENDATIONS: 1. Continue antibiotics, bronchodilators and mucolytic. Addition to prednisone therapy and wean over the next 12 to 14 days 2. Wean oxygen as tolerated. 3. Walking oximetry prior to discharge. Anticipate supplemental oxygen on discharge 4. Outpatient complete PFT for quantification and clarification of lung function 5. Outpatient CT scan without contrast for evaluation of right upper lobe IMPRESSIONS: 1. Acute hypoxic respiratory failure secondary to probable COPD exacerbation Initial reports are of 4 hours of sudden onset. Pulmonary embolism would be a concern with this history. However, after further questioning, patient has been declining for over a week. Patient does have hyperinflation and a long smoking history. No pulmonary function tests are available for quantification of clarification of lung function, but presumption of COPD exacerbation appears to be appropriate. Patient appears to be responding to current therapy, so we will continue treating for a COPD exacerbation. Insomnia overnight and continued leukocytosis may be secondary to steroid therapy. Steroids will be transitioned to prednisone and weaned over the next 12 to 14 days. Patient should follow-up with nurse practitioner 2 weeks after discharge in our office to initiate outpatient plan. 2. Possible right upper lobe nodule Patient has an area of what appears to be scarring on chest x-ray. No infiltrate is appreciated. Given patient's history of throat cancer, this should likely be evaluated with a CT scan. However, it is unlikely that this finding contributes to the inpatient management. A CT scan can be completed as an outpatient without contrast. Patient does not have any risk factors for TB, so respiratory isolation is likely not necessary. 3. Protein calorie malnutrition/active tobacco abuse/poor historian/delayed presentation/history of throat cancer Complicates care, management, recovery and prognosis. Confirmed patient is a DNR Comfort Care arrest without intubation. Dietitian has been consulted to address nutritional concerns. Encouraged to seek smoking cessation, but appears to be pre-contemplative at this time. Inpatient E&M: [id number] Subs Hosp L2
--- NOTE | 2020-05-08 08:11 | PCM.DC ---
- Discharge Diagnoses Current Active Problems: Current Active and Chronic Problems Respiratory failure (Acute) COPD (chronic obstructive pulmonary disease) with emphysema (Acute) Reason(s) for Visit for Discharge Instructions: Shortness of breath You will use the following diet at home:: Regular Your food should be the consistency of: Regular Your liquids should be the consistency of: Regular/Thin Discharge Activity: Return to Normal Activity Additional Instructions: Strongly encouraged to stop smoking. Take note of changes to your medications. You will be discharged with oxygen. Do not smoke whilst on oxygen. Wear your oxygen all the time. 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 Allergies/Adverse Reactions: Allergies No Known Allergies Allergy (Verified 05/05/20 19:06) Medications to take at Discharge Fluticasone Propionate [Flonase Allergy Relief] 1 spray NS DAILY 09/26/15 Budesonide/Formoterol 160/4.5 [Symbicort 160/4.5 Mcg Inhaler (SP)] 2 puff INHALATION BID 09/16/17 Albuterol IH (ProAir) [Proair Hfa] 1 - 2 puff INHALATION Q2H PRN PRN #1 inhaler 09/18/17 Aspirin E.C. [Ecotrin] 81 mg PO DAILY 04/22/18 Clopidogrel Bisulfate [Plavix] 75 mg PO DAILY #30 tab 04/24/18 Acetaminophen [Tylenol Tablet] 650 mg PO Q6H PRN PRN tab 05/08/20 Atorvastatin Calcium 80 mg PO QHS 30 Days #30 tab 05/08/20 Clopidogrel Bisulfate [Plavix] 75 mg PO DAILY 30 Days #30 tab 05/08/20 Ensure Enlive 120 ml PO 4X/DAY 30 Days #120 liquid 05/08/20 Guaifenesin [Robitussin] 10 ml PO Q4H PRN PRN 7 Days #1 bottle 05/08/20 Nicotine Polacrilex [Nicotine Gum] 4 mg PO Q2H PRN PRN 30 Days #1 box 05/08/20 Nicotine [Nicoderm] 14 mg TRANSDERM. DAILY 30 Days #30 patch 05/08/20 Prednisone 10 mg PO DAILY 30 Days #30 tab 05/08/20 The following prescriptions were given: Atorvastatin Calcium 80 mg PO QHS 30 Days #30 tab Transmission Status: Received by SATINDER [facility] [facility] Ensure Enlive 120 ml PO 4X/DAY 30 Days #120 liquid Transmission Status: Received by [address] Nicotine [Nicoderm] 14 mg TRANSDERM. DAILY 30 Days #30 patch Transmission Status: Received by [address] Nicotine Polacrilex [Nicotine Gum] 4 mg PO Q2H PRN PRN 30 Days #1 box PRN Reason: Nicotine Craving Transmission Status: Received by [address] Clopidogrel Bisulfate [Plavix] 75 mg PO DAILY 30 Days #30 tab Transmission Status: Received by [address] Prednisone 10 mg PO DAILY 30 Days #30 tab Transmission Status: Sent to [address] Guaifenesin [Robitussin] 10 ml PO Q4H PRN PRN 7 Days #1 bottle PRN Reason: COUGH Transmission Status: Received by [address] Primary Care Physician: Arpit Diaz MD [Primary Care Provider] - Please follow up with your Primary Care Physician in: within 1-2 weeks Test Results: Test results from this visit will be discussed in further detail at your follow-up appointment, if applicable. Please Follow Up With: Caridad Aguirre NP-C When: within 2 weeks Proposed Discharge Date: 05/08/20
--- NOTE | 2020-05-08 08:16 | PCM.DC.SUM ---
Discharge Date and Diagnosis Date of Admission: 05/05/20 Date of Discharge: 05/08/20 - Primary Discharge Diagnosis Acute Problems: Active Problems Acute respiratory insufficiency secondary to acute COPD exacerbation Leukocytosis with bandemia, unclear etiology Nicotine dependence Severe malnutrition, BMI 15.9 from poor p.o. intake - Secondary Discharge Diagnosis Chronic Problems: Chronic Problems Right inguinal hernia (Chronic) Peripheral arterial disease (Chronic) Throat cancer (Chronic) Dyslipidemia (Chronic) Hypertension (Chronic) H/O: stroke (Chronic) Hospital Course and Treatment Imaging Results: Clinical Impression(s) from Imaging Studies Chest X-Ray 05/05/20 18:43 IMPRESSION: Hyperaeration. Probable right upper lobe focal scarring. Electronically Signed: Troy Tolliver DO at 20:03 EDT Tel [phone], Service support , Critical care Operations: None Summary of Care Provided: The patient is a 64 year old M with past medical history of CVAs, throat cancer status post chemotherapy, hypertension, hyperlipidemia, who had been off his medications, chronic smoker who comes in with complaints of shortness of breath. Patient lives with his significant other. He is only on Duonebs. He is not on Plavix or aspirin or any of his medications because he could not afford them. He presented with shortness of breath that started 4 hours prior to presentation was watching TV. He had a dry cough that started a day before admission. He was wheezing at home. The EMS was called, and was found in a tripod position. He was tachycardic, blood pressure was uncontrolled. He was started on BiPAP. He did have elevated white cell count with bandemia here. Chest x-ray did not show any acute infiltrates. He was started on empiric antibiotics. Blood cultures were -48 hours later. Antibiotics were discontinued. Patient was managed momentarily on BiPAP and was transitioned to nasal cannula soon after admission. He was managed as acute COPD exacerbation. Was later on transferred to the PCU. Sales And Marketing Assistant followed patient to the hospital. He was resumed on his Plavix. Patient has stopped taking his medications because he could not afford them. Patient continued to improve and was subsequently discharged. I feel strongly that with patient being severely malnourished, with severe COPD, who continues to smoke, unwilling to quit, he is high risk for readmission. I will not be surprised if patient is readmitted soon. I expressed that strongly to the patient and her . His admits that he would not quit smoking. He has baseline cognitive impairment probably from vascular dementia from history of strokes. Subjective: On the day of discharge, patient was seen and examined. He feels much improved. He was counseled strongly with the that to quit smoking. He is off oxygen. He did not qualify for oxygen on ambulation. Objective: Physical exam: General: Alert, Oriented x3, Cooperative, - - Cachectic HEENT: Atraumatic, PERRLA, EOMI, Normocephalic Neck: Supple, No JVD, Negative Carotid Bruits Lungs: Diminished, Rhonchi, Short of Breath, Tachypneic, Using Accessory Muscles, Wheezes Cardiovascular: Normal S1, Normal S2, No murmurs, Tachycardic Abdomen: Bowel Sounds Present, Soft, Non Tender Extremities: No edema, Capillary Refill Less than 3 Seconds Skin: No rashes, No breakdown Musculoskeletal: No Tenderness to Palpation of Joints or Extremities Neurological: Cranial nerves II-XII grossly intact Psych/Mental Status: Normal Affect, Appropriate - Physical Exam Vitals/I&O's: Vital Signs Temp Pulse Resp BP Pulse Ox 98.3 F 98 16 139/81 H 92 05/08/20 04:11 05/08/20 07:03 05/08/20 06:58 05/08/20 04:11 05/08/20 06:58 Oxygen Flow Rate (L/min) 1 Oxygen Delivery Method Nasal Cannula Weight: 46.1 kg Body Mass Index (BMI) 15.7 Finger Stick Blood Glucose 103 Intake and Output for Last 24 Hours 05/06/20 05/07/20 05/08/20 23:59 23:59 23:59 Intake Total 905 / 905 1205 / 1255 270 / 270 Output Total 375 / 500 475 / 725 425 / 425 Balance 530 / 405 730 / 530 -155 / -155 Microbiology Past 72 Hours 05/05/20 20:24 Blood Culture (Wb) - Neck Blood Culture - Preliminary No growth in 48 hours. 05/05/20 19:35 Blood Culture (Wb) #2 - Left Wrist Blood Culture - Preliminary No growth in 48 hours. Current Medications Acetaminophen (Tylenol) 650 mg PO Q6H PRN PRN PRN Reason: Pain Score 1-10/Temp > 100.7 F Last Admin: 05/07/20 14:16 Dose: 650 mg Documented by: Albuterol Sulfate (Ventolin Aerosols) 2.5 mg INHALATION Q2H PRN PRN PRN Reason: SOB/Wheezing Albuterol/Ipratropium (Duoneb) 3 ml INHALATION Q4HWA.RT [facility] Last Admin: 05/08/20 06:58 Dose: 3 ml Documented by: Clopidogrel Bisulfate (Plavix) 75 mg PO DAILY [facility] Last Admin: 05/07/20 09:57 Dose: 75 mg Documented by: Enoxaparin Sodium (Lovenox) 40 mg SC DAILY [facility] Last Admin: 05/07/20 09:57 Dose: 40 mg Documented by: Guaifenesin (Robitussin) 10 ml PO Q4H PRN PRN PRN Reason: COUGH Sodium Chloride () 250 mls @ 15 mls/hr IV .[id number] PRN PRN Reason: Saline Flush Sodium Chloride () 250 mls @ 15 mls/hr IV .[id number] PRN PRN Reason: Additional IVPB Infusion Melatonin (Melatonin) 3 mg PO QHS [facility] Last Admin: 05/07/20 21:26 Dose: 3 mg Documented by: Nicotine (Nicoderm Cq (Pbkc)) 14 mg TRANSDERM. DAILY [facility] Last Admin: 05/07/20 09:57 Dose: 14 mg Documented by: Nicotine Polacrilex (Rugby Nicotine (Pbkc)) 4 mg PO Q2H PRN PRN PRN Reason: Nicotine Craving Last Admin: 05/07/20 12:25 Dose: 4 mg Documented by: Nutritional Formula (Lactose Free) (Ensure Enlive) 120 ml PO 4X/DAY [facility] Last Admin: 05/07/20 21:26 Dose: Not Given Documented by: Ondansetron HCl (Zofran) 4 mg IV Q8H PRN PRN PRN Reason: NAUSEA/VOMITING Prednisone () 40 mg PO DAILY@0800 [facility] Senna/Docusate Sodium (Senokot-S, Karin-Colace) 2 tablet PO BID PRN PRN PRN Reason: Constipation Sodium Chloride () 10 - 40 ml IV UD PRN PRN Reason: SALINE FLUSH Last Admin: 05/07/20 21:26 Dose: 10 ml Documented by: Zolpidem Tartrate (Ambien (Generic)) 5 mg PO QHS PRN PRN PRN Reason: INSOMNIA Discharge Diet: Low fat/ Low Cholesterol, 2000 mg Sodium Diet Discharge Activity: Return to Normal Activity Home Medications: Medications to take at Discharge Fluticasone Propionate [Flonase Allergy Relief] 1 spray NS DAILY 09/26/15 Budesonide/Formoterol 160/4.5 [Symbicort 160/4.5 Mcg Inhaler (SP)] 2 puff INHALATION BID 09/16/17 Albuterol IH (ProAir) [Proair Hfa] 1 - 2 puff INHALATION Q2H PRN PRN #1 inhaler 09/18/17 Aspirin E.C. [Ecotrin] 81 mg PO DAILY 04/22/18 Clopidogrel Bisulfate [Plavix] 75 mg PO DAILY #30 tab 04/24/18 Acetaminophen [Tylenol Tablet] 650 mg PO Q6H PRN PRN tab 05/08/20 Atorvastatin Calcium 80 mg PO QHS 30 Days #30 tab 05/08/20 Clopidogrel Bisulfate [Plavix] 75 mg PO DAILY 30 Days #30 tab 05/08/20 Ensure Enlive 120 ml PO 4X/DAY 30 Days #120 liquid 05/08/20 Guaifenesin [Robitussin] 10 ml PO Q4H PRN PRN 7 Days #1 bottle 05/08/20 Nicotine Polacrilex [Nicotine Gum] 4 mg PO Q2H PRN PRN 30 Days #1 box 05/08/20 Nicotine [Nicoderm] 14 mg TRANSDERM. DAILY 30 Days #30 patch 05/08/20 Prednisone 10 mg PO DAILY 30 Days #30 tab 05/08/20 Following Prescriptions Were Given to Patient: Atorvastatin Calcium 80 mg PO QHS 30 Days #30 tab Transmission Status: Received by SATINDER HAVELAND STALIN Ensure Enlive 120 ml PO 4X/DAY 30 Days #120 liquid Transmission Status: Received by SATINDER DAVID HENDRICKS STALIN Nicotine [Nicoderm] 14 mg TRANSDERM. DAILY 30 Days #30 patch Transmission Status: Received by SATINDER DAVID [place] STALIN Nicotine Polacrilex [Nicotine Gum] 4 mg PO Q2H PRN PRN 30 Days #1 box PRN Reason: Nicotine Craving Transmission Status: Received by SATINDER HAVELAND STALIN Clopidogrel Bisulfate [Plavix] 75 mg PO DAILY 30 Days #30 tab Transmission Status: Received by SATINDER [id number] HENDRICKS STALIN Prednisone 10 mg PO DAILY 30 Days #30 tab Transmission Status: Received by SATINDER [id number] HENDRICKS STALIN Guaifenesin [Robitussin] 10 ml PO Q4H PRN PRN 7 Days #1 bottle PRN Reason: COUGH Transmission Status: Received by SATINDER [id number] ELADIO GANT Primary Care Physician: Arpit Diaz MD [Primary Care Provider] - Please follow up with your Primary Care Physician in: within 1-2 weeks Please Follow Up With: Caridad Aguirre NP-C When: within 2 weeks Disposition: Home Minutes spent on discharge:: 45 Patient Condition:: Stable Medical Necessity - Tobacco Use Smoking Status: Current every day smoker Tobacco Use: Cigarettes Meaningful Use Info Meaningful Use Diagnoses (Choose all that apply): None applicable Inpatient E&M: 88838 Disch Hosp
[2020-05-08] MEDS: Clopidogrel Bisulfate 75 MG Tablet PO (09:39)
[2020-05-08] MEDS: Enoxaparin 40 MG/0.4 ML Syringe SC (09:39)
[2020-05-08] MEDS: predniSONE 20 MG Tablet 40 MG PO (09:39)
--- NOTE | 2020-05-09 13:11 | CASEMGMT ---
[facility] DC PHONE CALL DC DATE: 05/08/2020 DC DISPOSITION: Home DC DIAGNOSIS: COPD exacerbation LACE/STRATA: 07/21 F/U APPTS MADE PRIOR TO DC: no, weekend discharge Attempted call to phone. Message states the phone has calling restrictions and will not accept the call. Parker SULTANA RN ACM
== END 2020-05-08 13:18 | disposition home or self-care (01) | DRG 190 ==
LOC: ED 20:34 → ICU 20:39 → PCU 05-06 12:02
PROVIDERS: Admitting Provider Hospitalist; Emergency Provider Emergency Medicine; PCP Internal Medicine; Visit Provider Internal Medicine
DX: J43.9 Emphysema, unspecified (principal); E43 Unspecified severe protein-calorie malnutrition; Z68.1 Body mass index [BMI] 19.9 or less, adult; J20.9 Acute bronchitis, unspecified; D72.825 Bandemia; I10 Essential (primary) hypertension; E78.5 Hyperlipidemia, unspecified; I73.9 Peripheral vascular disease, unspecified; F01.50 Vascular dementia, unspecified severity, without behavioral disturbance, psychotic disturbance, mood disturbance, and anxiety; F17.210 Nicotine dependence, cigarettes, uncomplicated; Z23 Encounter for immunization; Z79.51 Long term (current) use of inhaled steroids; Z79.82 Long term (current) use of aspirin; Z79.02 Long term (current) use of antithrombotics/antiplatelets; Z79.899 Other long term (current) drug therapy; Z85.819 Personal history of malignant neoplasm of unspecified site of lip, oral cavity, and pharynx; Z86.73 Personal history of transient ischemic attack (TIA), and cerebral infarction without residual deficits; Z92.21 Personal history of antineoplastic chemotherapy
CPT/HCPCS: 36415; 36600; 71045; 80048; 80053; 82803; 83605; 84484; 85025; 87040; 87635; 93005; 94002; 94640; 97162; 97165; 97802; 97803; 99285; 99406; C9803; G0008; J7030; 90686; A4216; U0003

== ENCOUNTER 2021-02-24 17:51 | Inpatient (IN) | payer MEDICARE, MEDICAID, SELFPAY ==
[2020-05-06 09:59] VITALS: BMI 15.7
[2021-02-24] VITALS (13 sets, daily range): BP systolic 94–162; BP diastolic 74–94; PULSE 96–124; RESP 12–30; TEMP 36.7–37.1; O2SAT 94–100; BMI 18.8; BMI 16.6
--- NOTE | 2021-02-24 18:25 | EKG12_ITS ---
Test Reason : DYSRHYTHMIA Blood Pressure : / mmHG Vent. Rate : 111 BPM Atrial Rate : 111 BPM P-R Int : 144 ms QRS Dur : 070 ms QT Int : 328 ms P-R-T Axes : 082 080 062 degrees QTc Int : 446 ms Sinus tachycardia Otherwise normal ECG Confirmed by LUCY MELGOZA, BETHEL ([id number]), editor & co founder AARON BOSCH ([id number]) on 02/27/2021 1:17:54 PM Referred By: MONISHA Confirmed By:BETHEL AYALA MD
[2021-02-24] MEDS: Ipratropium/Albuterol Sulfate 3 ML AMPUL.NEB INHALATION ×2 (18:41→23:20)
[2021-02-24 18:42] LABS: Absolute Neutrophil Count 12.8 X10^3/uL (2.0-7.7); Basophil# 0.09 X10^3/uL; Basophil% 0.6 % (0-1); Eosinophil# 0.08 X10^3/uL; Eosinophils% 0.5 % (0-5); Lymphocyte % 8.4 % (19-41); Mean Corp Hgb Conc 31.7 g/dL (32-36); Mean Corpuscular Hgb 29.1 pg (27.0-32.0); Mean Corpuscular Volume 91.7 fL (80-94); Mean Platelet Vol. 9.8 fl (6.2-12.0); Monocyte# 1.11 X10^3/uL; Monocyte% 7.2 % (0-10); NRBC Flagged by Analyzer 0 % (0-5); Neutrophil # 12.77 X10^3/uL (2.7-7.7); Platelet Count 292 K/mm3 (150-450); RBC Distribution Width CV 15.1 % (11.6-14.6); RBC Distribution Width SD 51.3 fl (35.1-43.9); Red Blood Count 4.47 M/mm3 (4.6-6.2); White Blood Count 15.4 K/mm3 (4.4-11.0)
--- NOTE | 2021-02-24 18:42 | ED.VIS.DYS ---
HPI History of Present Illness Chief Complaint: Shortness of Breath Informant: patient Narrative Narrative: Patient is a 65-year-old male with a past medical history of COPD on 5 L of supplemental oxygen at baseline, multiple ischemic strokes who presents to the emerge department for shortness of breath. He states that this is a chronic issue for him but recently worsened over the past 2 weeks. He denies significant cough with this. No sputum production. He denies any chest pain. He has been using his inhalers a lot more frequently which have not been giving significant relief. He denies any leg swelling or calf pain. No abdominal pain or nausea/vomiting/diarrhea. No known sick contacts. He has not been vaccinated for Covid. [facility] Medical History Cancer COPD (chronic obstructive pulmonary disease) COPD (chronic obstructive pulmonary disease) with acute bronchitis On home oxygen therapy Smoker Stroke/cerebrovascular accident Home Medications albuterol sulfate 1 - 2 puff INHALATION Q2H PRN PRN #1 inhaler 09/18/17 [Rx Last Taken 04/22/18] aspirin 81 mg PO DAILY 04/22/18 [History Last Taken 04/22/18] acetaminophen 650 mg PO Q6H PRN PRN tab 05/08/20 [Rx Last Taken Unknown] ipratropium-albuterol 3 ml INHALATION Q4H PRN 02/24/21 [History Last Taken Unknown] Allergy/AdvReac Type Severity Reaction Status Date / Time No Known Allergies Allergy Verified 02/24/21 18:13 Family History Other COPD (chronic obstructive pulmonary disease) Cancer Surgical History (Updated 02/24/21 @ 23:14 by Patrick Stevenson) History of appendectomy History of cholecystectomy History of coronary artery stent placement Social History Smoking Status: Current every day smoker tobacco type: cigarettes ROS ROS ED Constitutional Constitutional ED: Denies fever(s) Eyes Eyes: Denies change in vision ENT ENT ED: Denies epistaxis or rhinorrhea Cardiovascular Cardiovascular: Denies chest pain or palpitations Respiratory/Chest Respiratory/Chest: Reports dyspnea; Denies cough or sputum Gastrointestinal Gastrointestinal: Denies abdominal pain, diarrhea, nausea or vomiting Genitourinary Genitourinary ED: Denies dysuria, hematuria or urinary frequency Musculoskeletal Musculoskeletal: Denies back pain or neck pain Integumentary Denies rash Neurologic Neurologic: Denies dizziness, headache(s) or weakness EXAM Physical Exam Const Vital Signs: 02/24/21 18:06 02/24/21 18:12 02/24/21 18:19 Temperature 98.4 F 98.4 F Temperature Source Oral Oral Pulse Rate 123 H 119 H Respiratory Rate 26 H 23 H Respiratory Effort Short of Breath Labored Splinting Respiratory Depth Shallow Respiratory Pattern Tachypnea Blood Pressure 103/84 H 103/84 H Blood Pressure Mean 90 90 Pulse Ox 98 100 Oxygen Delivery Method Nasal Cannula Nasal Cannula Nasal Cannula Oxygen Flow Rate (L/min) 5 5 5 Fraction of Inspired Oxygen (FIO2) 02/24/21 18:32 02/24/21 18:41 02/24/21 19:00 Temperature Temperature Source Pulse Rate 124 H 119 H Respiratory Rate 30 H 29 H Respiratory Effort Short of Breath Labored Respiratory Depth Shallow Respiratory Pattern Tachypnea Tachypnea Blood Pressure Blood Pressure Mean Pulse Ox 100 98 Oxygen Delivery Method Nasal Cannula Nasal Cannula Oxygen Flow Rate (L/min) 5 5 Fraction of Inspired Oxygen (FIO2) 24 02/24/21 20:00 02/24/21 20:12 02/24/21 20:19 Temperature 98.8 F Temperature Source Temporal Pulse Rate 110 H 104 H Respiratory Rate 23 H 21 H Respiratory Effort Respiratory Depth Respiratory Pattern Blood Pressure 94/84 H 111/94 H Blood Pressure Mean 87 99 Pulse Ox 96 98 94 Oxygen Delivery Method Room Air Nasal Cannula Oxygen Flow Rate (L/min) 2 Fraction of Inspired Oxygen (FIO2) 02/24/21 21:12 02/24/21 22:02 Temperature 98.5 F 98.1 F Temperature Source Temporal Temporal Pulse Rate 111 H 101 H Respiratory Rate 20 H 13 Respiratory Effort Respiratory Depth Respiratory Pattern Blood Pressure 117/93 H 119/77 Blood Pressure Mean 101 91 Pulse Ox 98 98 Oxygen Delivery Method Nasal Cannula Nasal Cannula Oxygen Flow Rate (L/min) 2 2 Fraction of Inspired Oxygen (FIO2) Positive well nourished and well developed General Appearance ED: well developed and NAD HEENT Reports normocephalic, head/scalp atraumatic and moist mucous membranes Eyes PERRL and EOMs intact bilaterally Neck no lymphadenopathy and supple General: Negative for tenderness Chest Wall inspection of chest normal Resp Resp Narrative: Decreased breath sounds throughout. Minimal air movement. He is tachypneic. Mild accessory muscle use. Auscultation: Negative for rales, rhonchi or wheezes Cardio regular rhythm and no murmurs Rate: tachycardic GI normal to inspection, nondistended, normoactive bowel sounds and non-tender Palpation: soft; Negative for guarding or rebound tenderness present Extremity normal to inspection General Extremety ED: Negative for edema or tenderness General Extremity: Negative for edema Neuro CN's II-XII intact bilaterally and no sensory deficits noted Sensorium / Orientation: alert Motor Exam: strength 5/5 throughout Psych mental status grossly normal Skin no rashes or lesions noted MDM MDM MDM Narrative Medical decision making narrative: Patient presents to the emergency department for shortness of breath. No other significant symptoms associated with this. On arrival he is tachycardic, tachypneic. He is satting well on his baseline 5 L of oxygen. Despite having COPD requiring silver oxygenation he does continue to smoke. Patient started on a breathing treatment and will get x-ray as well as basic lab work. X-ray did not reveal any acute cardiopulmonary abnormality. His lab work showed him to have a mildly high white blood cell count which is similar to his previous lab draws. No significant acute electrolyte disturbance. His lactic acid was mildly high. Patient was initially placed on BiPAP given his significant increased work of breathing. He is feeling much better so this was able to be discontinued. His troponin is within normal limits and BNP is not elevated. Patient given a dose of Solu-Medrol by EMS. Given the fact patient was feeling better he did attempt to ambulate the patient but he desatted quickly to the 70s on his baseline oxygen. Will bring him into the hospital for further evaluation and management this time. Low concern for PE without risk factors. Given his physical exam this is likely COPD causing his symptoms. Patient otherwise is agreeable with staying in the hospital this time. Lab Data Labs: Laboratory Results - last 24 hr 02/24/21 02/24/21 02/24/21 18:00 18:00 18:00 WBC 15.4 H RBC 4.47 L Hgb 13.0 Hct 41.0 MCV 91.7 MCH 29.1 MCHC 31.7 L RDW Std Deviation 51.3 H RDW Coeff of Chao 15.1 H Plt Count 292 MPV 9.8 Immature Gran % (Auto) 0.300 Neut % (Auto) 83.0 H Lymph % (Auto) 8.4 L [place] % (Auto) 7.2 Eos % (Auto) 0.5 Baso % (Auto) 0.6 Absolute Neuts (auto) 12.8 H Absolute Lymphs (auto) 1.30 Nucleated RBC % 0 Sodium 136 Potassium 3.4 L Chloride 98 Carbon Dioxide 34.0 H Anion Gap 4 L BUN 9 Creatinine 0.75 Estim Creat Clear Calc 69.01 Est GFR (MDRD) Af Amer 134 Est GFR (MDRD) Non-Af 111 BUN/Creatinine Ratio 11.9 Glucose 152 H Lactic Acid Calcium 8.7 Total Bilirubin 0.20 AST 20 ALT 15 L Alkaline Phosphatase 83 Troponin I High Sens 8.2 B-Natriuretic Peptide 19.5 Total Protein 7.3 Albumin 3.7 Globulin 3.6 Albumin/Globulin Ratio 1.0 02/24/21 18:15 WBC RBC Hgb Hct MCV MCH MCHC RDW Std Deviation RDW Coeff of Chao Plt Count MPV Immature Gran % (Auto) Neut % (Auto) Lymph % (Auto) [place] % (Auto) Eos % (Auto) Baso % (Auto) Absolute Neuts (auto) Absolute Lymphs (auto) Nucleated RBC % Sodium Potassium Chloride Carbon Dioxide Anion Gap BUN Creatinine Estim Creat Clear Calc Est GFR (MDRD) Af Amer Est GFR (MDRD) Non-Af BUN/Creatinine Ratio Glucose Lactic Acid 2.3 H* Calcium Total Bilirubin AST ALT Alkaline Phosphatase Troponin I High Sens B-Natriuretic Peptide Total Protein Albumin Globulin Albumin/Globulin Ratio Radiography Diagnostic Testing: Radiology Impression Chest X-Ray 02/24/21 19:40 IMPRESSION: Stable hyperexpansion with no acute finding. Electronically Signed: Roderick Salas MD at 20:35 EDT , Service support , Chest x-ray did not show any acute evidence of cardiopulmonary abnormality. No pneumonia. There is emphysematous changes. EKG Initial EKG: Attestation: I personally reviewed and interpreted this EKG as follows: (Rate of 111 bpm in sinus tachycardia. Normal intervals. Normal axis. No significant ST elevations or depressions. No T wave abnormalities.) Discharge Plan Dx/Rx/DC Orders Clinical Impression: COPD (chronic obstructive pulmonary disease) with emphysema, Dyspnea, Hypoxia Disposition Disposition: Acute Care Hospital [facility] Discharge Date/Time: 02/24/21 22:48
[2021-02-24 18:55] LABS: AST(SGOT) 20 U/L (15-37); Alanine Aminotransfer ALT/SGPT 15 U/L (16-61); Albumin, Serum 3.7 g/dL (3.2-5.0); Alkaline Phosphatase 83 U/L (45-117); Anion Gap 4 (5-15); BUN 9 mg/dL (7-18); BUN/Creat Ratio 11.9 RATIO (10-20); Calcium,Total 8.7 mg/dL (8.5-10.1); Chloride 98 mmol/L (98-107); Creatinine, Serum 0.75 mg/dL (0.70-1.30); EST Glomerular Filtration Rate 111 mL/min (>60); Est Glom Filt Rate - Afr Amer 134 mL/min (>60); Estimated Creatinine Clearance 69.01 ml/min; Globulin 3.6 g/dL (2.2-4.2); Glucose 152 mg/dL (74-106); Potassium 3.4 mmol/L (3.5-5.1); Protein, Total 7.3 g/dL (6.4-8.2); Sodium Level 136 mmol/L (136-145); Troponin-I HS 8.2 pg/mL (3.0-78.5)
[2021-02-24 19:05] LABS: Lactic Acid 2.3 mmol/L (0.4-1.9)
[2021-02-24 19:05] LABS: BNP,B-Type NATRIURETIC PEPTIDE 19.5 pg/mL (0-100)
--- NOTE | 2021-02-24 19:40 | RAD_ITS ---
STUDY: X-RAY CHEST REASON FOR EXAM: Male, 65 years old. History of COPD. Shortness of breath. TECHNIQUE: Single frontal view of the chest. COMPARISON: 05/05/2020 FINDINGS: Stable hyperexpansion. There is no demonstrated pleural abnormality. Normal size heart. Normal mediastinum and christie. Normal visualized pulmonary arteries. Normal visualized aortic arch and descending thoracic aorta. Normal visualized thoracic spine. Normal visualized ribs, clavicles, and shoulders. There is no demonstrated abnormality of the visualized soft tissue structures of the upper abdomen. RAD/Chest 1 View (Portable) IMPRESSION: Stable hyperexpansion with no acute finding. Electronically Signed: Roderick Salas MD at 20:35 EDT , Service support ,
--- NOTE | 2021-02-24 22:09 | HP.PCM.HOS_ITS ---
HPI - General General Date of Admission: 02/24/21 HPI Narrative MARIELLA JACOBSON, is a 65 M with a significant history of multiple CVAs; PAD status post stent; throat cancer status post radiation; COPD on baseline 2 L nasal cannula oxygen; and tobacco abuse who presents to the emergency department with a 4-day history of progressively worsening shortness of breath. At home patient increased his oxygen demand from 2 L to 5 L nasal cannula oxygen. He denies wheezes. He has a chronic dry cough that he think has not changed. With ambulation of the emergency department his oxygen saturation went into the 70s. Patient was placed on BiPAP and has some relief and was eventually weaned off BiPAP. Also patient can barely walk. [facility] Medical History Cancer COPD (chronic obstructive pulmonary disease) COPD (chronic obstructive pulmonary disease) with acute bronchitis On home oxygen therapy Smoker Stroke/cerebrovascular accident Home Medications albuterol sulfate 1 - 2 puff INHALATION Q2H PRN PRN #1 inhaler 09/18/17 [Rx Last Taken 04/22/18] aspirin 81 mg PO DAILY 04/22/18 [History Last Taken 04/22/18] acetaminophen 650 mg PO Q6H PRN PRN tab 05/08/20 [Rx Last Taken Unknown] ipratropium-albuterol 3 ml INHALATION Q4H PRN 02/24/21 [History Last Taken Unknown] Allergy/AdvReac Type Severity Reaction Status Date / Time No Known Allergies Allergy Verified 02/24/21 18:13 Family History Other COPD (chronic obstructive pulmonary disease) Cancer Surgical History History of appendectomy History of cholecystectomy History of coronary artery stent placement no surgical history Social History Smoking Status: Current every day smoker tobacco type: cigarettes ROS ROS Narrative 12 point review of system is negative except as stated in HPI. Vital Signs Vital Signs Vital Signs: 02/24/21 18:06 02/24/21 18:12 02/24/21 18:19 Temperature 98.4 F 98.4 F Temperature Source Oral Oral Pulse Rate 123 H 119 H Respiratory Rate 26 H 23 H Respiratory Effort Short of Breath Labored Splinting Respiratory Depth Shallow Respiratory Pattern Tachypnea Blood Pressure 103/84 H 103/84 H Blood Pressure Mean 90 90 Pulse Ox 98 100 Oxygen Delivery Method Nasal Cannula Nasal Cannula Nasal Cannula Oxygen Flow Rate (L/min) 5 5 5 Fraction of Inspired Oxygen (FIO2) 02/24/21 18:32 02/24/21 18:41 02/24/21 19:00 Temperature Temperature Source Pulse Rate 124 H 119 H Respiratory Rate 30 H 29 H Respiratory Effort Short of Breath Labored Respiratory Depth Shallow Respiratory Pattern Tachypnea Tachypnea Blood Pressure Blood Pressure Mean Pulse Ox 100 98 Oxygen Delivery Method Nasal Cannula Nasal Cannula Oxygen Flow Rate (L/min) 5 5 Fraction of Inspired Oxygen (FIO2) 24 02/24/21 20:00 02/24/21 20:12 02/24/21 20:19 Temperature 98.8 F Temperature Source Temporal Pulse Rate 110 H 104 H Respiratory Rate 23 H 21 H Respiratory Effort Respiratory Depth Respiratory Pattern Blood Pressure 94/84 H 111/94 H Blood Pressure Mean 87 99 Pulse Ox 96 98 94 Oxygen Delivery Method Room Air Nasal Cannula Oxygen Flow Rate (L/min) 2 Fraction of Inspired Oxygen (FIO2) 02/24/21 21:12 Temperature 98.5 F Temperature Source Temporal Pulse Rate 111 H Respiratory Rate 20 H Respiratory Effort Respiratory Depth Respiratory Pattern Blood Pressure 117/93 H Blood Pressure Mean 101 Pulse Ox 98 Oxygen Delivery Method Nasal Cannula Oxygen Flow Rate (L/min) 2 Fraction of Inspired Oxygen (FIO2) Weight Weight: 48.4 kg Body Mass Index (BMI) 18.8 Physical Exam Narrative Physical exam: General: Frail looking elderly male. Head: Normocephalic, atraumatic, no tenderness Eyes: PERRLA, EOMI ENT, no trauma, moist mucous membranes, no rhinorrhea Neck: Nontender, full range of motion, no spinal tenderness, deformities, step- off CVS: Tachycardia; S1-S2 present Respiratory: Barrel chest. Diminished lungs throughout Abdomen: Soft, nontender, nondistended, normal bowel sounds, no masses : Deferred Extremities: Cachectic; no edema. Skin: Normal color, no trauma, abrasions Neuro: Alert. Slow in providing response to questions. Cranial nerves II through XII grossly intact; except that patient has a deep voice.. Results Lab / Micro Data Result Diagrams: 02/24/21 18:00 02/24/21 18:00 Labs: Laboratory Results - last 24 hr 02/24/21 02/24/21 02/24/21 18:00 18:00 18:00 WBC 15.4 H RBC 4.47 L Hgb 13.0 Hct 41.0 MCV 91.7 MCH 29.1 MCHC 31.7 L RDW Std Deviation 51.3 H RDW Coeff of Chao 15.1 H Plt Count 292 MPV 9.8 Immature Gran % (Auto) 0.300 Neut % (Auto) 83.0 H Lymph % (Auto) 8.4 L [place] % (Auto) 7.2 Eos % (Auto) 0.5 Baso % (Auto) 0.6 Absolute Neuts (auto) 12.8 H Absolute Lymphs (auto) 1.30 Nucleated RBC % 0 Sodium 136 Potassium 3.4 L Chloride 98 Carbon Dioxide 34.0 H Anion Gap 4 L BUN 9 Creatinine 0.75 Estim Creat Clear Calc 69.01 Est GFR (MDRD) Af Amer 134 Est GFR (MDRD) Non-Af 111 BUN/Creatinine Ratio 11.9 Glucose 152 H Lactic Acid Calcium 8.7 Total Bilirubin 0.20 AST 20 ALT 15 L Alkaline Phosphatase 83 Troponin I High Sens 8.2 B-Natriuretic Peptide 19.5 Total Protein 7.3 Albumin 3.7 Globulin 3.6 Albumin/Globulin Ratio 1.0 02/24/21 18:15 WBC RBC Hgb Hct MCV MCH MCHC RDW Std Deviation RDW Coeff of Chao Plt Count MPV Immature Gran % (Auto) Neut % (Auto) Lymph % (Auto) [place] % (Auto) Eos % (Auto) Baso % (Auto) Absolute Neuts (auto) Absolute Lymphs (auto) Nucleated RBC % Sodium Potassium Chloride Carbon Dioxide Anion Gap BUN Creatinine Estim Creat Clear Calc Est GFR (MDRD) Af Amer Est GFR (MDRD) Non-Af BUN/Creatinine Ratio Glucose Lactic Acid 2.3 H* Calcium Total Bilirubin AST ALT Alkaline Phosphatase Troponin I High Sens B-Natriuretic Peptide Total Protein Albumin Globulin Albumin/Globulin Ratio Micro: Microbiology 02/24/21 19:10 SARS-CoV-2 Antigen (Rapid) - Final Nasal Secretion Radiology Impression Chest X-Ray 02/24/21 19:40 IMPRESSION: Stable hyperexpansion with no acute finding. Electronically Signed: Roderick Salas MD at 20:35 EDT , Service support , Assessment & Plan Assessment/Plan (1) Debility: (2) Respiratory insufficiency: (3) Throat cancer: (4) Dyslipidemia: (5) Peripheral arterial disease: (6) COPD (chronic obstructive pulmonary disease) with emphysema: PLAN: Acute on chronic respiratory insufficiency secondary to COPD as the patient/progressively worsening COPD Impression of chest x-ray by radiology: Stable hyperexpansion with no acute findings. CXR independently interpreted the patient was seen and examined confirms hyperinflation with bilateral flattening of diaphragm seventh and if no acute findings. Received Solu-Medrol 125 mg IV push by paramedics. Will place on Solu-Medrol 40 mg every 8 hours [id number]. Scheduled DuoNeb Albuterol as needed Oxygen per protocol. Monitor BMP and CBC Lactic acidosis Likely secondary to hypoxemia. Treatment of COPD as above. Trend lactic acid. Debility PT and OT to work with patient. Protein calorie malnutrition Cachectic with muscle wasting. Ensure Enlive ordered. Nutrition consult Hypokalemia Review of medical department labs showed mild hypokalemia. Potassium re- placement ordered. Trend BMP. Tobacco abuse Counseled Declined nicotine patch. DVT Prophylaxis Subcutaneous Lovenox ordered Charges/Coding Visit Charges Inpatient E&M: 66391 Init Hosp L3
[2021-02-24 22:29] LABS: Reflex Lactate? Y
[2021-02-24 23:26] LABS: Lactic Acid 2.5 mmol/L (0.4-1.9)
[2021-02-24] MEDS: Potassium Chloride Oral Tablet 20 MEQ 40 MEQ PO (23:41)
[2021-02-25] VITALS (9 sets, daily range): BP systolic 116–135; BP diastolic 56–71; PULSE 81–110; RESP 18–26; TEMP 36.6–36.9; O2SAT 96–98; BMI 16.6
[2021-02-25] MEDS: 0.9% Saline Lock 10 ML Syringe IV (05:25)
[2021-02-25] MEDS: Menthol/Lanolin/Calamine/Znox 113 GM Tube 1 APPLIC TOPICAL ×3 (05:28→20:40)
[2021-02-25 05:59] LABS: Absolute Lymphocyte Count 0.83 X10^3/uL (0.83-4.51); Absolute Neutrophil Count 7.5 X10^3/uL (2.0-7.7); Basophil# 0.01 X10^3/uL; Basophil% 0.1 % (0-1); Hematocrit 38.6 % (40-54); Hemoglobin 12.5 g/dL (13.0-16.5); Lymphocyte # 0.83 X10^3/ul (0.83-4.51); Lymphocyte % 9.5 % (19-41); Mean Corp Hgb Conc 32.4 g/dL (32-36); Mean Corpuscular Hgb 29.3 pg (27.0-32.0); Mean Corpuscular Volume 90.6 fL (80-94); Mean Platelet Vol. 9.4 fl (6.2-12.0); Monocyte# 0.35 X10^3/uL; NRBC Flagged by Analyzer 0 % (0-5); Neutrophil # 7.48 X10^3/uL (2.7-7.7); Neutrophil % 85.7 % (47-70); Platelet Count 251 K/mm3 (150-450); RBC Distribution Width CV 15.4 % (11.6-14.6); RBC Distribution Width SD 50.9 fl (35.1-43.9); Red Blood Count 4.26 M/mm3 (4.6-6.2); White Blood Count 8.7 K/mm3 (4.4-11.0)
[2021-02-25 06:37] LABS: Anion Gap 8 (5-15); BUN 11 mg/dL (7-18); BUN/Creat Ratio 12.4 RATIO (10-20); Calcium,Total 9.1 mg/dL (8.5-10.1); Chloride 101 mmol/L (98-107); Creatinine, Serum 0.89 mg/dL (0.70-1.30); EST Glomerular Filtration Rate 92 mL/min (>60); Est Glom Filt Rate - Afr Amer 111 mL/min (>60); Estimated Creatinine Clearance 51.19 ml/min; Glucose 154 mg/dL (74-106); Potassium 4.7 mmol/L (3.5-5.1); Sodium Level 136 mmol/L (136-145)
[2021-02-25] MEDS: Ipratropium/Albuterol Sulfate 3 ML AMPUL.NEB INHALATION ×4 (06:43→19:36)
[2021-02-25] MEDS: Enoxaparin 40 MG/0.4 ML Syringe SC (09:15)
[2021-02-25] MEDS: Aspirin E.C. 81 MG Tablet PO (09:15)
--- NOTE | 2021-02-25 10:21 | PN.HOSP_ITS ---
Subjective Subjective Breathing better, back to baseline. Had been SOB for ~5 hours prior to arrival. Objective Data Objective Data Vital Signs: Vital Signs Temp Pulse Resp BP Pulse Ox 36.9 C 93 21 H 135/67 H 96 02/25/21 09:30 02/25/21 09:30 02/25/21 09:30 02/25/21 09:30 02/25/21 09:30 Oxygen Flow Rate (L/min) 2 Oxygen Delivery Method Nasal Cannula Weight: 42.6 kg Body Mass Index (BMI) 16.6 Intake & Output: Intake and Output for Last 24 Hours 02/23/21 02/24/21 02/25/21 23:59 23:59 23:59 Intake Total 400 / 400 Balance 400 / 400 Lab / Micro Data Result Diagrams: 02/25/21 05:45 02/25/21 05:45 Labs: Laboratory Results - last 24 hr 02/24/21 02/24/21 02/24/21 18:00 18:00 18:00 WBC 15.4 H RBC 4.47 L Hgb 13.0 Hct 41.0 MCV 91.7 MCH 29.1 MCHC 31.7 L RDW Std Deviation 51.3 H RDW Coeff of Chao 15.1 H Plt Count 292 MPV 9.8 Immature Gran % (Auto) 0.300 Neut % (Auto) 83.0 H Lymph % (Auto) 8.4 L [place] % (Auto) 7.2 Eos % (Auto) 0.5 Baso % (Auto) 0.6 Absolute Neuts (auto) 12.8 H Absolute Lymphs (auto) 1.30 Nucleated RBC % 0 Sodium 136 Potassium 3.4 L Chloride 98 Carbon Dioxide 34.0 H Anion Gap 4 L BUN 9 Creatinine 0.75 Estim Creat Clear Calc 69.01 Est GFR (MDRD) Af Amer 134 Est GFR (MDRD) Non-Af 111 BUN/Creatinine Ratio 11.9 Glucose 152 H Lactic Acid Calcium 8.7 Total Bilirubin 0.20 AST 20 ALT 15 L Alkaline Phosphatase 83 Troponin I High Sens 8.2 B-Natriuretic Peptide 19.5 Total Protein 7.3 Albumin 3.7 Globulin 3.6 Albumin/Globulin Ratio 1.0 02/24/21 02/24/21 02/25/21 18:15 22:41 05:45 WBC 8.7 RBC 4.26 L Hgb 12.5 L Hct 38.6 L MCV 90.6 MCH 29.3 MCHC 32.4 RDW Std Deviation 50.9 H RDW Coeff of Chao 15.4 H Plt Count 251 MPV 9.4 Immature Gran % (Auto) 0.700 Neut % (Auto) 85.7 H Lymph % (Auto) 9.5 L [place] % (Auto) 4.0 Eos % (Auto) 0.0 Baso % (Auto) 0.1 Absolute Neuts (auto) 7.5 Absolute Lymphs (auto) 0.83 Nucleated RBC % 0 Sodium Potassium Chloride Carbon Dioxide Anion Gap BUN Creatinine Estim Creat Clear Calc Est GFR (MDRD) Af Amer Est GFR (MDRD) Non-Af BUN/Creatinine Ratio Glucose Lactic Acid 2.3 H* 2.5 H* Calcium Total Bilirubin AST ALT Alkaline Phosphatase Troponin I High Sens B-Natriuretic Peptide Total Protein Albumin Globulin Albumin/Globulin Ratio 02/25/21 05:45 WBC RBC Hgb Hct MCV MCH MCHC RDW Std Deviation RDW Coeff of Chao Plt Count MPV Immature Gran % (Auto) Neut % (Auto) Lymph % (Auto) [place] % (Auto) Eos % (Auto) Baso % (Auto) Absolute Neuts (auto) Absolute Lymphs (auto) Nucleated RBC % Sodium 136 Potassium 4.7 Chloride 101 Carbon Dioxide 27.0 Anion Gap 8 BUN 11 Creatinine 0.89 Estim Creat Clear Calc 51.19 Est GFR (MDRD) Af Amer 111 Est GFR (MDRD) Non-Af 92 BUN/Creatinine Ratio 12.4 Glucose 154 H Lactic Acid Calcium 9.1 Total Bilirubin AST ALT Alkaline Phosphatase Troponin I High Sens B-Natriuretic Peptide Total Protein Albumin Globulin Albumin/Globulin Ratio Micro: Microbiology 02/24/21 19:10 Nasal Secretion SARS-CoV-2 Antigen (Rapid) - Final Radiography Diagnostic Testing: Radiology Impression Chest X-Ray 02/24/21 19:40 IMPRESSION: Stable hyperexpansion with no acute finding. Electronically Signed: Roderick Salas MD at 20:35 EDT , Service support , Physical Exam Const alert Constitutional Narrative: cachectic. afebrile. no respiratory distress. no conversational dyspnea. Resp normal respiratory effort, no retractions, no use of accessory muscles and clear to auscultation bilaterally Cardio regular rate, regular rhythm, S1 normal heart sound and S2 normal heart sound GI normal to inspection, nondistended, normoactive bowel sounds, non-tender and non-distended Neuro Sensorium / Orientation: awake and alert Assessment & Plan Assessment/Plan (1) COPD exacerbation: (2) Debility: PLAN: 1. acute COPD exacerbation I cannot find the hypoxia other than just documentation. Patient overall seems to be doing fine at this time on 2 L which is what he is on at home. No need for additional oxygen requirements at this time. Personal review of chest x-ray showed hyperinflated airways but no pulmonary infiltrate nor pulmonary vascular congestion. Plan: * Wean steroids down to prednisone it would anticipate a taper upon discharge. * Continue with bronchodilators. 2. Debility PT OT evaluate and treat 3. VTE prophylaxis with enoxaparin 4. Severe protein malnutrition: Patient very cachectic Continue with diet and supplements Charges/Coding Visit Charges Inpatient E&M: 53340 Subs Hosp L2
[2021-02-25] MEDS: predniSONE 20 MG Tablet 40 MG PO (11:07)
--- NOTE | 2021-02-25 11:15 | CASEMGMT ---
RN SHANNEN Face to Face with patient for initial transition planning/care coordination assessment. RN CM introduced self and role at [facility]. Patient lying in bed, alert and oriented, significant other at bedside. Patient willing to participate in assessment and is able to answer all questions appropriately. Care providers, pharmacy, and demographics verified. Patient wishes to discharge home, denies need for home health at this time. Patient states he has no further needs or concerns at this time. CM to follow for discharge planning needs that may arise. PCP: Joe Specialists: none [facility]erred Pharmacy: [facility] Prescription Benefit: yes Living Will/HPOA: none LNOK: Significant other Living Arrangements: Patient lives with significant other in a 2 story home with bed and bath on first floor. 1 step and railing to enter the home. Patient states he is independent at home. Transportation: sig other DME/HHC: Patient states he has walker, nebulizer, and oxygen at 3lpm through [facility] with portability. Patient has had [facility] in the past. Disposition Plan: Patient to discharge home with family support and follow-up plans in place. Mariola SULTANA, RN, CM
--- NOTE | 2021-02-25 11:23 | NT.THERAPY_ITS ---
Medical Nutrition Therapy - History Nutrition Services has been consulted to:: Manage nutrient details of diet order Current diet/nutrition support order:: Regular. Ensure Enlive 120mL 4x/day - Anthropometric Measurements Height:: 5 ft 3 in Weight:: 42.6 kg Body Mass Index (BMI):: 16.6 - Relevant Labs Relevant Labs:: WBC 15.4 K/mm3 (4.4-11.0) H 02/24/21 18:00 RBC 4.26 M/mm3 (4.6-6.2) L 02/25/21 05:45 Hgb 12.5 g/dL (13.0-16.5) L 02/25/21 05:45 Hct 38.6 % (40-54) L 02/25/21 05:45 MCHC 31.7 g/dL (32-36) L 02/24/21 18:00 RDW Std Deviation 50.9 fl (35.1-43.9) H 02/25/21 05:45 RDW Coeff of Chao 15.4 % (11.6-14.6) H 02/25/21 05:45 Neut % (Auto) 85.7 % (47-70) H 02/25/21 05:45 Lymph % (Auto) 9.5 % (19-41) L 02/25/21 05:45 Absolute Neuts (auto) 12.8 X10^3/uL (2.0-7.7) H 02/24/21 18:00 Potassium 3.4 mmol/L (3.5-5.1) L 02/24/21 18:00 Carbon Dioxide 34.0 mmol/L (21.0-32.0) H 02/24/21 18:00 Anion Gap 4 (5-15) L 02/24/21 18:00 Glucose 154 mg/dL (74-106) H 02/25/21 05:45 Lactic Acid 2.5 mmol/L (0.4-1.9) H* 02/24/21 22:41 ALT 15 U/L (16-61) L 02/24/21 18:00 - Assessment Food and Nutrient Intake: Consumed ~75% of breakfast this AM. Denies changes in appetite/intake VALIDATION INTERN. Pt states he does not weigh self regularly at home. Thinks he weighs ~120#. CBW 93.9#-26.1#/22% wt loss, pt thinks it occurred over past 1 year. Pt's family at bedside states he lives off of milkshakes at home and does not always consume much else. Does not regularly drink Boost or Ensure. Pt is not very forthcoming w/ information when asked about diet at home. - Nutrition Diagnosis: Clinical Problem Chronic Disease or Condition Related Malnutrition Clinical Problem - Etiology: severe, chronic malnutrition r/t inadequate energy intake w/ increased nutrient needs d/t COPD Clinical Problem - Signs/Symptoms: as evidenced by estimated PO intake meeting <75% of estimated nutritional needs > 6 months, unintentional wt loss of 26.1#/22% wt loss x 1 year, severe muscle wasting/fat loss evident upon physical exam in temporal, clavicle, acromion region, BMI 16.6 (underweight) Status: Active Problem - Protein Calorie Malnutrition Evidence of Malnutrition Exists: Yes Severe Protein Calorie Malnutrition:: Chronic - Nutrition Intervention Nutrition Prescription: 4727-5216 calories/day (30 calories/kg IBW (56kg)). 56- 66 g protein/day (1.5 g/kg). 1290mL fluid/day (30mL/kg) - Food / Nutrient Delivery Interventions Summary of nutrition intervention:: Nutrition education provided, Provide oral nutrition supplement Nutrition support ordered as / adjusted to:: Continue regular diet; will add chocolate milkshake made w/ whole milk and magic cup at meals for additional calories/protein if consumed. Will fortify foods when able. Continue Ensure Enlive w/ medpass. Nutrition education provided?: Yes - encouraged intake of high protein/high calorie foods & small frequent meals - MNT Monitoring Active Nutrition Patient: Yes Nutrition Status: Requires Follow Up 3-5 Days
[2021-02-26 03:16] VITALS: BP 136/73; PULSE 81; RESP 18; TEMP 36.4; O2SAT 96
[2021-02-26 07:35] VITALS: PULSE 70; RESP 18; O2SAT 91
[2021-02-26] MEDS: Ipratropium/Albuterol Sulfate 3 ML AMPUL.NEB INHALATION (07:35)
[2021-02-26 08:00] VITALS: O2SAT 96
[2021-02-26] MEDS: Enoxaparin 40 MG/0.4 ML Syringe SC (08:46)
[2021-02-26] MEDS: predniSONE 20 MG Tablet 40 MG PO (08:47)
[2021-02-26] MEDS: Menthol/Lanolin/Calamine/Znox 113 GM Tube 1 APPLIC TOPICAL (08:47)
[2021-02-26] MEDS: Aspirin E.C. 81 MG Tablet PO (08:47)
[2021-02-26 09:16] VITALS: BP 149/92; PULSE 107; RESP 19; TEMP 36.9; O2SAT 98
--- NOTE | 2021-02-26 10:36 | CASEMGMT ---
AMBERLY PRIDE received call that significant other Dorcas wanted to speak with SHANNEN. AMBERLY PRIDE talked with Dorcas over the phone. Dorcas states that she was wrong regarding which DME company home oxygen was setup with and clarified that DME is through [facility]. Dorcas states that patient also needs new nebulizer. AMBERLY PRIDE updated nursing regarding new DME company to updated scripts.
[2021-02-26 10:48] VITALS: O2SAT 89; O2SAT 94; O2SAT 98
--- NOTE | 2021-02-26 11:18 | PCM.DC ---
Discharge Instructions Diet Discharge Diet: No restrictions Activity Discharge Activity: Return to Normal Activity (as tolerated) Follow Up Care Test Results: Test results from this visit will be discussed in further detail at your follow-up appointment, if applicable. Discharge Plan Admission Admit Date/Time: 02/24/21 22:09 Primary Reason for Your Visit: COPD exacerbation Attending Provider: Alec Tan Primary Care Provider: Arpit Diaz Discharge Orders/Prescriptions Prescriptions: New prednisone 10 mg tablet 10 mg PO DAILY Qty: 30 RF: 0 Continued albuterol sulfate 1 PUFF inhaler 1 - 2 puff INHALATION Q2H PRN PRN (Reason: Sob &/Or Wheezing) Qty: 1 RF: 0 aspirin 81 MG tablet 81 mg PO DAILY RF: 0 acetaminophen 325 MG tablet 650 mg PO Q6H PRN PRN (Reason: Pain Score 1-10/Temp > 100.7 F) RF: 0 ipratropium-albuterol 0.5 mg-3 mg(2.5 mg base)/3 mL solution for nebulization 3 ml inhalation Q4H PRN (Reason: SOB) RF: 0 Referrals / Follow Up: Arpit Diaz MD [Primary Care Provider] - Within 2 Weeks Caridad Aguirre NP, VEHICLE DETAILER-C [Nurse Practitioner] - Within 2 Weeks Disposition Disposition (needs filled in before D/C Order can be placed): Home, Self Care
--- NOTE | 2021-02-26 11:29 | DS.PCM_ITS ---
Providers Date of Admission: 02/24/21 Primary Care Physician: Dr. Arpit Diaz MD Reason For Visit: COPD EXACERBATION Diagnosis Discharge Diagnosis (1) COPD exacerbation: Status: Chronic Code(s): J44.1 - Chronic obstructive pulmonary disease with (acute) exacerbation (2) Debility: Status: Acute Code(s): R53.81 - Other malaise Medications at Discharge Home Medications albuterol sulfate 1 - 2 puff INHALATION Q2H PRN PRN #1 inhaler 09/18/17 aspirin 81 mg PO DAILY 04/22/18 acetaminophen 650 mg PO Q6H PRN PRN tab 05/08/20 ipratropium-albuterol 3 ml INHALATION Q4H PRN 02/24/21 prednisone 10 mg PO DAILY #30 tab 02/26/21 Hospital Course Operations None Procedures None Summary of Care Provided Minutes Spent on Discharge: 32 Hospital Course: 62-year-old male presents with increasing shortness of breath. Patient was found to be in acute exacerbation of COPD. Patient was started on methylprednisolone and continued on bronchodilators and has improved. Yesterday, patient was changed over to prednisone. Today, the patient is doing better. Patient was 89% on room air with ambulation and then 91% on 2 L which is what he is on at home. Patient be discharged home in stable condition. Patient also has severe protein malnutrition. Patient did continue with supplements and regards to his diet as well. Physical Exam Resp no retractions and no use of accessory muscles Resp Narrative: dimished Cardio regular rate, regular rhythm, S1 normal heart sound and S2 normal heart sound Weight / BMI Weight Weight: 42.6 kg Body Mass Index (BMI) 16.6 ABG / Lab / Microbiology Data Result Diagrams: 02/25/21 05:45 02/25/21 05:45 Microbiology: Microbiology 02/24/21 19:10 Nasal Secretion SARS-CoV-2 Antigen (Rapid) - Final D/C Instructions Discharge Diet: No restrictions Meaningful Use Info Meaningful Use Diagnoses (Choose all that apply): None applicable Discharge Plan Admission Admit Date/Time: 02/24/21 22:09 Primary Reason for Your Visit: COPD exacerbation Attending Provider: Alec Tan Primary Care Provider: Arpit Diaz Discharge Orders/Prescriptions Prescriptions: New prednisone 10 mg tablet 10 mg PO DAILY Qty: 30 RF: 0 Continued albuterol sulfate 1 PUFF inhaler 1 - 2 puff INHALATION Q2H PRN PRN (Reason: Sob &/Or Wheezing) Qty: 1 RF: 0 aspirin 81 MG tablet 81 mg PO DAILY RF: 0 acetaminophen 325 MG tablet 650 mg PO Q6H PRN PRN (Reason: Pain Score 1-10/Temp > 100.7 F) RF: 0 ipratropium-albuterol 0.5 mg-3 mg(2.5 mg base)/3 mL solution for nebulization 3 ml inhalation Q4H PRN (Reason: SOB) RF: 0 Referrals / Follow Up: Arpit Diaz MD [Primary Care Provider] - Within 2 Weeks Caridad Aguirre NP, MANAGER OF DEVELOPMENT-C [Nurse Practitioner] - Within 2 Weeks Disposition Disposition (needs filled in before D/C Order can be placed): Home, Self Care Charges/Coding Visit Charges Inpatient E&M: 31131 Disch Hosp
[2021-02-26 11:32] VITALS: BP 149/92; PULSE 107; RESP 18; TEMP 36.7; O2SAT 98
--- NOTE | 2021-02-27 16:06 | CASEMGMT ---
AMBERLY PRIDE Discharge Follow-up Phone Call: LANG: Tariq Strata: 3 Call Date: 02/27/21 Discharge Date: 02/26/21 Time of Call: 1605 Duration: 1 min Admitting Diagnosis: COPD exacerbation AMBERLY PRIDE attempted to complete follow-up phone call after recent hospitalization. Call was not able to be completed as number would not go through. Will attempt again at later time.
== END 2021-02-26 13:21 | disposition home or self-care (01) | DRG 190 ==
LOC: ED 22:14 → MS3 22:22
PROVIDERS: Admitting Provider Hospitalist; Emergency Provider Emergency Medicine; PCP Internal Medicine
DX: J43.9 Emphysema, unspecified (principal); E43 Unspecified severe protein-calorie malnutrition; Z68.1 Body mass index [BMI] 19.9 or less, adult; E87.2 Acidosis; R09.02 Hypoxemia; E87.6 Hypokalemia; Z20.822 Contact with and (suspected) exposure to COVID-19; I73.9 Peripheral vascular disease, unspecified; E78.5 Hyperlipidemia, unspecified; F17.210 Nicotine dependence, cigarettes, uncomplicated; Z99.81 Dependence on supplemental oxygen; Z79.82 Long term (current) use of aspirin; Z79.899 Other long term (current) drug therapy; Z95.5 Presence of coronary angioplasty implant and graft; Z86.73 Personal history of transient ischemic attack (TIA), and cerebral infarction without residual deficits; Z85.819 Personal history of malignant neoplasm of unspecified site of lip, oral cavity, and pharynx; Z92.3 Personal history of irradiation
CPT/HCPCS: 36415; 71045; 80048; 80053; 83605; 83880; 84484; 85025; 87040; 87426; 93005; 94002; 94640; 94667; 94668; 97110; 97162; 97166; 97530; 97802; 99251; 99285; A4216; G0463